=== PATIENT | male | born 1940 | race Caucasian/White ===

== ENCOUNTER 2016-05-18 10:53 | Day surgery (SDC) | payer MEDICARE ==
[2016-05-13 16:27] VITALS: BMI 22.0
[~2016-05-18 10:53] MED LIST: ALBUTEROL NEB (CONC) 2.5 MG/0.5 ML INHALATION ONE; ATROPINE SULFATE 0.4 MG/ML 1 ML VIAL IM ONE; LACTATED RINGERS 1,000 ML IV ONE; LACTATED RINGERS 1,000 ML IV SCH; LIDOCAINE 1% 20 ML VIAL (10MG/ML) FOR IV START INTRADERMA PRN; LIDOCAINE 2% (PF) 20 MG/ML 10ML INHALATION ONE
[2016-05-18] MEDS ORDERED: LIDOCAINE 1% INJ 10MG/ML (20 ML MDV) ONE (12:13)
[2016-05-18] MEDS ORDERED: PROPOFOL 10 MG/ML 20 ML VIAL IV ONE (12:13)
[2016-05-18 13:07] VITALS: BP 164/88; PULSE 55; RESP 20
[2016-05-18 20:04] LABS: RBC, Body Fluid 5025 /uL
--- NOTE | 2016-05-18 21:07 | PCN ---
DATE OF PROCEDURE: PROCEDURE PERFORMED: Bronchoscopy, airway examination, therapeutic lavage, BAL right middle lobe. PREOPERATIVE DIAGNOSES: Retained secretions, and chronic obstructive pulmonary disease. POSTOPERATIVE DIAGNOSES: Retained secretions, chronic obstructive pulmonary disease and tracheomalacia. CEILING CLEANER provided IV conscious sedation. There was informed consent. There was universal timeout. The patient's procedure took place in Room #2. After the patient was adequately sedated and being fully monitored, the bronchoscope was inserted through the right nostril. It passed through the right nasopharynx into the oropharynx. The hypopharynx was identified and topicalized. The hypopharyngeal structures, including anterior commissure, true cords, false cords, arytenoids, piriform sinuses, right and left valleculae all appeared relatively normal. Next, the glottic opening was topicalized. The trachea was shown to have tracheomalacia. It was quite significant. Tracheal ross was sharp. The right and left mainstem were topicalized. The right upper lobe and its 3 segments, the right middle lobe and its 2 segments, the right lower lobe and its 5 segments, left upper lobe proper and its 2 segments, the lingula and its 2 segments, and left lower lobe and its 4 segments all had similar findings of diffuse bronchitis, with mucosa erythema, hyperemia mucosal friability. It bled easily. There were thick yellow secretions noted throughout. They were suctioned. The bronchoscope was then wedged into the right middle lobe. BAL took place. The patient tolerated the procedure well. There was no dominant masses. There was no bleeding. After the fluid was removed and the rest of the airways were cleansed with saline, the bronchoscope was withdrawn. The patient will be recovered.
== END 2016-05-18 13:18 | disposition home or self-care (01) ==
LOC: ORWHC2ENDO 10:53
PROVIDERS: ATTEND Internal Medicine Critical Care Medicine
DX: J39.8 Other specified diseases of upper respiratory tract (principal); J44.9 Chronic obstructive pulmonary disease, unspecified; I10 Essential (primary) hypertension; Z88.1 Allergy status to other antibiotic agents; Z88.8 Allergy status to other drugs, medicaments and biological substances; Z79.2 Long term (current) use of antibiotics; Z79.51 Long term (current) use of inhaled steroids; Z79.52 Long term (current) use of systemic steroids; Z79.899 Other long term (current) drug therapy; Z87.891 Personal history of nicotine dependence
CPT/HCPCS: 94640; 88108; 88305; 89050; 87252; 87070; 87205; 87116; 87102; 87206; 31624; J0461; J2001 ×2; J2704; 87496; 87498; 87502; 87529; 87798

== ENCOUNTER 2016-09-07 11:51 | Day surgery (SDC) | payer MEDICARE ==
[2016-09-02 15:38] VITALS: BMI 25.6
[~2016-09-07 11:51] MED LIST changes: -LIDOCAINE 1% 20 ML VIAL (10MG/ML) FOR IV START INTRADERMA PRN; +Pre Op ABX Message 1 EACH MISC MISCELLANE ONE
[2016-09-07] MEDS ORDERED: LIDOCAINE 1% 20 ML VIAL (10MG/ML) FOR IV START INTRADERMA ONE (12:24)
[2016-09-07 12:27] LABS: Glucose,Whole Blood 88 mg/dL (75-99)
[2016-09-07] MEDS ORDERED: PROPOFOL 10 MG/ML 20 ML VIAL IV ONE (12:46)
[2016-09-07 13:06] VITALS: RESP 16
[2016-09-07 13:58] VITALS: BP 145/89; PULSE 59
--- NOTE | 2016-09-07 22:38 | PCN ---
DATE OF PROCEDURE: PROCEDURE PERFORMED: Bronchoscopy, airway examination, therapeutic lavage, BAL right middle lobe. PREOPERATIVE DIAGNOSES: 1. Retained secretions. 2. Chronic obstructive pulmonary disease. 3. Tracheobronchomalacia. POSTOPERATIVE DIAGNOSES: 1. Retained secretions. 2. Chronic obstructive pulmonary disease. 3. Tracheobronchomalacia. The procedure was done under general anesthesia and conscious sedation. NITROGEN OPERATOR provided that sedation. The patient's procedure was done in Room #1. There was informed consent. There was universal timeout. After the patient was adequately sedated and being fully monitored, the bronchoscope was inserted through the right nostril. It passed through the right nasopharynx into the oropharynx. The hypopharynx was identified. There seemed to be some blood along the true vocal cord on the right side. The anterior commissure, true cords, false cords, arytenoids, piriform sinuses, right and left vallecula and epiglottis all appeared otherwise normal. After topicalization, the bronchoscope was pushed through the glottic opening into the trachea. Trachea appeared normal. There was some ballooning of the membranous posterior trachea anteriorly consistent with the patient's diagnosis of tracheomalacia. There were thick secretions noted throughout the trachea. Tracheal ross was sharp. Right and left mainstem were topicalized. The right upper lobe and its 3 segments, the right middle lobe and its 2 segments, the right lower lobe and its 5 segments, the left upper lobe proper and its 2 segments, the lingula and its 2 segments and the left lower lobe and its 4 segments all had similar findings of diffuse mucosal friability. There was vascular engorgement. The mucosa bled easily. There was diffuse erythema and hyperemia. There were thick yellow-green secretions noted throughout. There was no dominant mass or tumor. After secretions were suctioned, the bronchoscope was wedged into the right middle lobe. BAL took place. The patient tolerated the procedure well. There was no immediate complications. The patient will be recovered and eventually discharged.
== END 2016-09-07 14:09 | disposition home or self-care (01) ==
LOC: ORWHC2ENDO 11:51
PROVIDERS: ATTEND Internal Medicine Critical Care Medicine
DX: J44.9 Chronic obstructive pulmonary disease, unspecified (principal); J39.8 Other specified diseases of upper respiratory tract; J98.09 Other diseases of bronchus, not elsewhere classified; F41.9 Anxiety disorder, unspecified; I10 Essential (primary) hypertension; Z87.891 Personal history of nicotine dependence; Z79.891 Long term (current) use of opiate analgesic; Z79.51 Long term (current) use of inhaled steroids; Z79.52 Long term (current) use of systemic steroids; Z79.899 Other long term (current) drug therapy; Z88.1 Allergy status to other antibiotic agents; Z88.8 Allergy status to other drugs, medicaments and biological substances
CPT/HCPCS: 94640; 87798 ×4; 87496; 87498; 87529 ×2; 88108; 88305; 87252; 87502 ×2; 87070; 87205; 87116; 87102; 87077; 87186; 87206; 31624; J0461; J2001; J2704

== ENCOUNTER → 2016-10-20 | Outpatient (CLI) | payer MEDICARE ==
[2016-10-20 09:14] LABS: Blood Urea Nitrogen 23 mg/dL (9-20); Non-African American GFR(MDRD) >60 (>60 ml/min/1.73 sqM)
--- NOTE | 2016-10-20 10:57 | CT ---
EXAMINATION TYPE: CT abdomen wo/w con DATE OF EXAM: 10/20/2016 COMPARISON: NONE HISTORY: Abdominal pain, R 10.84 CT DLP: 1536 mGycm Automated exposure control for dose reduction was used. TECHNIQUE: Helical acquisition of images was performed from the lung bases through the top of iliac crest to include entire abdomen. CONTRAST: Performed with Oral Contrast and without and with IV Contrast, patient injected with 100 mL of Omnipa que 300. FINDINGS: LUNG BASES: The lung bases there are areas of probable scarring and atelectasis. Coronary artery calc ifications are present. No pleural or pericardial effusion. LIVER/GB: Liver shows low attenuation, there may be hepatic steatosis. No evident mass. Small low den se focus within the right lobe inferiorly is subcentimeter in size and statistically likely to repres ent a cyst, too similar foci present in the left lobe. Gallbladder is unremarkable. PANCREAS: No significant abnormality is seen. SPLEEN: No significant abnormality is seen. ADRENALS: No significant abnormality is seen. KIDNEYS: Low dense focus within the mid pole of the left kidney posteriorly measures 12 mm and is lik edmund to represent a small cortical cyst. 2 foci at the lower pole of the right kidney shows similar ap pearance measuring 13 mm and 12 mm which are also likely represent cysts. No evident renal calculi or hydronephrosis. No ureteral calculus is evident. BOWEL: No significant abnormality is seen. LYMPH NODES: No significant abnormality is appreciated. OSSEOUS STRUCTURES: There is a scoliosis. Degenerative disc changes in the visualized spine. Multile philippe disc herniations present within the spinal canal, gas density compatible with possible sequestere d fragments at L3, L4.. There is facet arthropathy change. FREE AIR: No free air ASCITES: None visible. RETROPERITONEAL ADENOPATHY: No Retroperitoneal Adenopathy visible. OTHER: Aorta shows normal caliber, there is atheromatous change. 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 IMPRESSION: DEGENERATIVE DISC DISEASE, SCOLIOSIS WITH DISC HERNIATIONS. Findings in the liver as described. Proba ble scarring at the lung bases, consider follow-up. Additional findings above.
== END | disposition home or self-care (01) ==
LOC: RADCTMAIN 08:37
PROVIDERS: ATTEND Internal Medicine Geriatric Medicine
DX: R10.84 Generalized abdominal pain (principal)
CPT/HCPCS: 82565; 84520; 74170; 36415; Q9967

== ENCOUNTER → 2017-02-22 | Outpatient (CLI) | payer MEDICARE ==
--- NOTE | 2017-02-22 09:57 | CT ---
EXAMINATION TYPE: CT chest wo con DATE OF EXAM: 02/22/2017 COMPARISON: Prior chest x-ray 03/16/2011 HISTORY: COPD, trouble breathing CT DLP: 565 mGycm. Automated Exposure Control for Dose Reduction was Utilized. TECHNIQUE: CT scan of the thorax is performed without IV contrast. FINDINGS: LUNGS: Some patchy basilar density is present medially at the right lung base which may represent ilan e scarring, there is also some increased attenuation along the fissure on the left extending into the lingula. Subpleural focus of increased attenuation on axial image 36 in the right middle lobe measur es approximately 1 cm and may represent a small focus of inflammatory change. Some minimal additional subpleural nodularity, bandlike areas of scarring noted. There is bronchial wall thickening present. MEDIASTINUM: Lack of IV contrast is noted to limit evaluation for mediastinal and especially hilar ad enopathy. There are no definitive greater than 1 cm hilar or mediastinal lymph nodes. No cardiomega ly or pericardial effusion is seen. There is a small hiatal hernia present. The pulmonary artery is e nlarged. Small prevascular node is present. There are coronary artery calcifications present. OTHER: No additional significant abnormality is seen. IMPRESSION: Correlate for pulmonary artery hypertension. Coronary artery disease. Suspect scarring wi thin the lungs, consider follow-up to assess for stability. Noncontrast exam.
== END | disposition home or self-care (01) ==
LOC: RADCTMAIN 08:33
PROVIDERS: ATTEND Internal Medicine Critical Care Medicine
DX: I25.10 Atherosclerotic heart disease of native coronary artery without angina pectoris (principal)
CPT/HCPCS: 71250

== ENCOUNTER 2017-02-24 09:18 | Day surgery (SDC) | payer MEDICARE ==
[~2017-02-24 09:18] MED LIST changes: -ALBUTEROL NEB (CONC) 2.5 MG/0.5 ML INHALATION ONE; -ATROPINE SULFATE 0.4 MG/ML 1 ML VIAL IM ONE; -LACTATED RINGERS 1,000 ML IV ONE; -LACTATED RINGERS 1,000 ML IV SCH; -LIDOCAINE 2% (PF) 20 MG/ML 10ML INHALATION ONE
[2017-02-24 09:48] VITALS: TEMP 97.9
[2017-02-24] MEDS ORDERED: ALBUTEROL NEBULIZED 2.5 MG/3 ML INHALATION STA (09:59)
[2017-02-24 10:10] LABS: Glucose,Whole Blood 86 mg/dL (75-99)
[2017-02-24] MEDS ORDERED: LIDOCAINE 4% (PF) 5 ML AMP IH STA (10:10)
[2017-02-24] MEDS ORDERED: ATROPINE SULFATE 0.4 MG/ML 20 ML VIAL IM STA (10:17)
[2017-02-24] MEDS ORDERED: LIDOCAINE 1% 20 ML VIAL (10MG/ML) FOR IV START INTRADERMA ONE (10:21)
[2017-02-24] MEDS ORDERED: LACTATED RINGERS 1,000 ML IV ONE (10:22)
[2017-02-24] MEDS ORDERED: PROPOFOL 10 MG/ML 20 ML VIAL IV ONE (10:32)
[2017-02-24 11:38] VITALS: RESP 18
[2017-02-24 11:53] VITALS: BP 124/78; PULSE 58
--- NOTE | 2017-02-24 13:46 | PCN ---
PROCEDURE NOTE PROCEDURE: Bronchoscopy, airway examination, therapeutic lavage, BAL right middle lobe. PREOP DIAGNOSES: 1. Bronchiectasis. 2. Chronic obstructive pulmonary disease. 3. Tracheobronchomalacia. 4. Retained secretions. POSTOP DIAGNOSES: 1. Bronchiectasis. 2. Chronic obstructive pulmonary disease. 3. Tracheobronchomalacia. 4. Retained secretions. Dr. Griggs and Dr. Thornton did the procedure. There was informed consent. There was universal timeout. Leonardo Ware CRNA, provided general anesthesia. After the patient was adequately sedated and being fully monitored, the bronchoscope was inserted through the right nostril. It passed through the right nasopharynx into the oropharynx. The hypopharynx was identified and topicalized. The hypopharyngeal structures including anterior commissure, true cords, false cords, arytenoids, piriform sinuses, right and left vallecula and epiglottis appeared normal. After topicalization, the bronchoscope was passed through the glottic opening into the trachea. Trachea appeared normal. Trachea ross was sharp. There was some secretions noted in the distal trachea. The right and left mainstem were topicalized. The right upper lobe and its 3 segments right middle lobe and its 2 segments right lower lobe and its 5 segments left upper lobe proper and its 2 segments the lingula and its 2 segments and the left lower lobe and its 4 segments all have similar findings of diffuse bronchitis. There was diffuse mucosal erythema and hyperemia. The mucosa was friable. Secretions were purulent appearing. They were thick. There were suctioned. There was no dominant mass or tumor. The bronchoscope was then wedged into the right middle lobe. BAL took place. Patient tolerated the procedure well and the bronchoscope was withdrawn. There was no immediate complications. The fluid will be sent for analysis. MMODL / IJN: [id number] /
[2017-02-24 17:48] LABS: RBC, Body Fluid 166500 /uL
== END 2017-02-24 12:13 | disposition home or self-care (01) ==
LOC: ORWHC2ENDO 09:18
PROVIDERS: ATTEND Internal Medicine Critical Care Medicine
DX: J47.1 Bronchiectasis with (acute) exacerbation (principal); J98.09 Other diseases of bronchus, not elsewhere classified; F41.9 Anxiety disorder, unspecified; I10 Essential (primary) hypertension; Z88.1 Allergy status to other antibiotic agents; Z88.8 Allergy status to other drugs, medicaments and biological substances; Z79.51 Long term (current) use of inhaled steroids; Z79.52 Long term (current) use of systemic steroids; Z79.899 Other long term (current) drug therapy; Z87.891 Personal history of nicotine dependence
CPT/HCPCS: 94640; 88108; 88305; 89050; 87252; 87070; 87205; 87116; 87102; 87206; 31624; J2001; J0461; J2704; 87496; 87498; 87502; 87529; 87798

== ENCOUNTER 2017-08-16 09:10 | Emergency (ER) | payer MEDICARE ==
[2017-08-16] MEDS ORDERED: SODIUM CHLORIDE 0.9% 500 ML IV STA (09:36)
[2017-08-16] MEDS ORDERED: methylPREDNISolone SOD SUCCI 125 MG/2 ML VIAL IV STA (09:36)
[2017-08-16] MEDS ORDERED: ALBUTEROL NEBULIZED 2.5 MG/3 ML INHALATION STA (09:36)
[2017-08-16] MEDS ORDERED: KETOROLAC 60 MG/2 ML VIAL IVP STA (09:40)
--- NOTE | 2017-08-16 09:42 | ED ---
General Adult HPI - General Chief complaint: Shortness of Breath Stated complaint: SOB Time Seen by Provider: 08/16/17 09:15 Source: patient, RN notes reviewed Mode of arrival: ambulatory Limitations: no limitations - History of Present Illness Initial comments: This is a 76-year-old male presents emergency Department with COPD history. Patient comes in today stating over the last few days he's been coughing quite a bit but unable to get any sputum production out. Patient states his shortness of breath is really not much worse than normal. Patient denies any chest pain difficulty breathing. Patient denies any fever chills per patient denies any abdominal pain. Patient denies any nausea vomiting diarrhea. Patient denies any leg swelling or calf pain. Patient denies any lightheadedness or dizziness. - Related Data Home Medications Medication Instructions Recorded Confirmed ALPRAZolam [Xanax] 0.25 mg PO QID PRN 08/22/13 08/16/17 Ipratropium/Albuterol Sulfate 1 puff INHALATION RT-Q6H PRN 08/22/13 08/16/17 [Combivent Respimat Inhaler] amLODIPine [Norvasc] 5 mg PO BID 08/22/13 08/16/17 Benzonatate [Tessalon Perles] 100 mg PO TID PRN 09/02/16 08/16/17 Formoterol Fumarate [Perforomist] 20 mcg INHALATION RT-BID 09/02/16 08/16/17 Tamsulosin [Flomax] 0.4 mg PO DAILY 09/02/16 08/16/17 predniSONE 10 mg PO DAILY 09/02/16 08/16/17 Naproxen Sodium [Aleve] 220 mg PO BID 02/24/17 08/16/17 Albuterol Nebulized [Ventolin 2.5 mg INHALATION RT-Q6H PRN 08/16/17 08/16/17 Nebulized] Budesonide [Pulmicort] 1 mg INHALATION RT-DAILY 08/16/17 08/16/17 Furosemide [Lasix] 40 mg PO DAILY 08/16/17 08/16/17 Potassium Chloride [Klor-Con 20] 20 meq PO DAILY 08/16/17 08/16/17 Triamcinolone 0.1% Cream [Kenalog] 1 applicatio TOPICAL BID 08/16/17 08/16/17 guaiFENesin [Mucinex] 600 mg PO BID PRN 08/16/17 08/16/17 Previous Rx's Medication Instructions Recorded Azithromycin [Zithromax Tri-Dillon] 500 mg PO DAILY #3 tab 08/16/17 predniSONE 40 mg PO DAILY #8 tab 08/16/17 Allergies Allergy/AdvReac Type Severity Reaction Status Date / Time levofloxacin [From Levaquin] Allergy Swelling Verified 08/16/17 10:07 to fingers Review of Systems ROS Statement: Those systems with pertinent positive or pertinent negative responses have been documented in the HPI. ROS Other: All systems not noted in ROS Statement are negative. Past Medical History Past Medical History: COPD, Hypertension, Pneumonia, Skin Disorder Additional Past Medical History / Comment(s): HX PSORIASIS,HEART MURMUR,DAILY STEROID. "stage 3 lung disease" History of Any Multi-Drug Resistant Organisms: None Reported Additional Past Surgical History / Comment(s): BRONCHOSCOPY X5. HX EGD, COLONOSCOPY, BENIGN LYMPH NODE REMOVED FROM NECK. Past Anesthesia/Blood Transfusion Reactions: No Reported Reaction Past Psychological History: No Psychological Hx Reported Smoking Status: Former smoker Past Alcohol Use History: None Reported Past Drug Use History: None Reported - Past Family History Mother Family Medical History: CVA/TIA, Myocardial Infarction ([place]) Father Family Medical History: Deep Vein Thrombosis (DVT) General Exam - General Exam Comments Initial Comments: GENERAL: Patient is well-developed and well-nourished. Patient is nontoxic and well- hydrated and is in mild distress. ENT: Neck is soft and supple. No significant lymphadenopathy is noted. Oropharynx is clear. Moist mucous membranes. EYES: The sclera were anicteric and conjunctiva were pink and moist. Extraocular movements were intact and pupils were equal round and reactive to light. Eyelids were unremarkable. PULMONARY: Unlabored respirations. Good breath sounds bilaterally. No audible rales rhonchi or wheezing was noted. CARDIOVASCULAR: There is a regular rate and rhythm without any murmurs gallops or rubs. ABDOMEN: Soft and nontender with normal bowel sounds. No palpable organomegaly was noted. There is no palpable pulsatile mass. SKIN: Skin is clear with no lesions or rashes and otherwise unremarkable. NEUROLOGIC: Patient is alert and oriented x3. Cranial nerves II through XII are grossly intact. Motor and sensory are also intact. Normal speech, volume and content. Symmetrical smile. MUSCULOSKELETAL: Normal extremities with adequate strength and full range of motion. LYMPHATICS: No significant lymphadenopathy is noted PSYCHIATRIC: Normal psychiatric evaluation. Normal interpersonal interactions appears functionally intact in deals appropriately with others. No signs of depression. No signs of anxiety. Limitations: no limitations Course Vital Signs 08/16/17 08/16/17 08/16/17 09:16 09:20 10:06 Temperature 98.4 F Pulse Rate 64 88 Respiratory 26 H 26 H Rate Blood Pressure 132/84 O2 Sat by Pulse 92 L Oximetry 08/16/17 08/16/17 10:12 10:22 Temperature Pulse Rate 82 88 Respiratory 20 Rate Blood Pressure 149/87 O2 Sat by Pulse 98 Oximetry Medical Decision Making - Medical Decision Making EKG shows a sinus rhythm with occasional PVC at 83 bpm MI interval is 146 QRS is 92 QT interval 368 QTC is 432. Patient's EKG shows no ST segment elevation or depression or T wave abnormalities are noted. Chest x-ray shows no acute abnormality. I went back in to reevaluate the patient and he felt better after the breathing treatment. I checked the chest x-ray showed no acute abnormalities I started the patient on Rocephin because I thought the patient acute bronchitis. Patient states her come back if the symptoms worsen. Patient will also be placed on some steroids. Patient is requesting to be discharged. - Lab Data Result diagrams: 08/16/17 09:50 08/16/17 09:50 Lab Results 08/16/17 08/16/17 08/16/17 Range/Units 09:50 09:50 09:50 WBC 8.1 (3.8-10.6) k/uL RBC 5.01 (4.30-5.90) m/uL Hgb 15.1 (13.0-17.5) gm/dL Hct 44.0 (39.0-53.0) % MCV 87.8 (80.0-100.0) fL MCH 30.2 (25.0-35.0) pg MCHC 34.4 (31.0-37.0) g/dL RDW 14.8 (11.5-15.5) % Plt Count 181 (150-450) k/uL Neutrophils % 82 % Lymphocytes % 12 % Monocytes % 5 % Eosinophils % 0 % Basophils % 0 % Neutrophils # 6.6 (1.3-7.7) k/uL Lymphocytes # 0.9 L (1.0-4.8) k/uL Monocytes # 0.4 (0-1.0) k/uL Eosinophils # 0.0 (0-0.7) k/uL Basophils # 0.0 (0-0.2) k/uL PT (9.0-12.0) sec INR (<1.2) APTT (22.0-30.0) sec Sodium 145 (137-145) mmol/L Potassium 3.9 (3.5-5.1) mmol/L Chloride 106 (98-107) mmol/L Carbon Dioxide 25 (22-30) mmol/L Anion Gap 14 mmol/L BUN 26 H (9-20) mg/dL Creatinine 0.95 (0.66-1.25) mg/dL Est GFR (CKD-EPI)AfAm 89 (>60 ml/min/1.73 sqM) Est GFR (CKD-EPI)NonAf 77 (>60 ml/min/1.73 sqM) Glucose 116 H (74-99) mg/dL Calcium 9.2 (8.4-10.2) mg/dL Magnesium 1.9 (1.6-2.3) mg/dL Total Bilirubin 0.6 (0.2-1.3) mg/dL AST 29 (17-59) U/L ALT 31 (21-72) U/L Alkaline Phosphatase 88 (38-126) U/L Total Creatine Kinase 77 (55-170) U/L CK-MB (CK-2) 1.7 (0.0-2.4) ng/mL CK-MB (CK-2) Rel Index 2.2 Troponin I 0.033 (0.000-0.034) ng/mL NT-Pro-B Natriuret Pep pg/mL Total Protein 6.7 (6.3-8.2) g/dL Albumin 3.9 (3.5-5.0) g/dL 08/16/17 08/16/17 Range/Units 09:50 09:50 WBC (3.8-10.6) k/uL RBC (4.30-5.90) m/uL Hgb (13.0-17.5) gm/dL Hct (39.0-53.0) % MCV (80.0-100.0) fL MCH (25.0-35.0) pg MCHC (31.0-37.0) g/dL RDW (11.5-15.5) % Plt Count (150-450) k/uL Neutrophils % % Lymphocytes % % Monocytes % % Eosinophils % % Basophils % % Neutrophils # (1.3-7.7) k/uL Lymphocytes # (1.0-4.8) k/uL Monocytes # (0-1.0) k/uL Eosinophils # (0-0.7) k/uL Basophils # (0-0.2) k/uL PT 9.7 (9.0-12.0) sec INR 1.0 (<1.2) APTT 24.1 (22.0-30.0) sec Sodium (137-145) mmol/L Potassium (3.5-5.1) mmol/L Chloride (98-107) mmol/L Carbon Dioxide (22-30) mmol/L Anion Gap mmol/L BUN (9-20) mg/dL Creatinine (0.66-1.25) mg/dL Est GFR (CKD-EPI)AfAm (>60 ml/min/1.73 sqM) Est GFR (CKD-EPI)NonAf (>60 ml/min/1.73 sqM) Glucose (74-99) mg/dL Calcium (8.4-10.2) mg/dL Magnesium (1.6-2.3) mg/dL Total Bilirubin (0.2-1.3) mg/dL AST (17-59) U/L ALT (21-72) U/L Alkaline Phosphatase (38-126) U/L Total Creatine Kinase (55-170) U/L CK-MB (CK-2) (0.0-2.4) ng/mL CK-MB (CK-2) Rel Index Troponin I (0.000-0.034) ng/mL NT-Pro-B Natriuret Pep 194 pg/mL Total Protein (6.3-8.2) g/dL Albumin (3.5-5.0) g/dL Disposition Clinical Impression: Acute bronchitis with COPD Disposition: HOME SELF-CARE Instructions: Acute Bronchitis (ED) Prescriptions: Azithromycin [Zithromax Tri-Dillon] 500 mg PO DAILY #3 tab predniSONE 40 mg PO DAILY #8 tab Is patient prescribed a controlled substance at d/c from ED?: No Referrals: Erik Pal MD [Primary Care Provider] - 1-2 days Time of Disposition: 10:58
[2017-08-16 10:12] LABS: Basophils % (A) 0 %; Eosinophils % (A) 0 %; HGB 15.1 gm/dL (13.0-17.5); Lymphocytes # (A) 0.9 k/uL (1.0-4.8); Lymphocytes % (A) 12 %; MCH 30.2 pg (25.0-35.0); MCHC 34.4 g/dL (31.0-37.0); MCV 87.8 fL (80.0-100.0); Mean Platelet Volume 7.3; Monocytes # (A) 0.4 k/uL (0-1.0); Monocytes % (A) 5 %; Neutrophils # (A) 6.6 k/uL (1.3-7.7); Neutrophils % (A) 82 %; Platelet Count 181 k/uL (150-450); RBC 5.01 m/uL (4.30-5.90); RDW 14.8 % (11.5-15.5); WBC 8.1 k/uL (3.8-10.6)
--- NOTE | 2017-08-16 10:17 | XR ---
EXAMINATION TYPE: XR chest 2V DATE OF EXAM: 08/16/2017 COMPARISON: 03/16/2011 HISTORY: Shortness of breath TECHNIQUE: Frontal and lateral views of the chest are obtained. FINDINGS: Scattered senescent parenchymal changes noted. Hyperinflation compatible with COPD. No evidence for infiltrate. No evidence for atelectasis. Heart size is stable. Mediastinal structures are stable and grossly unremarkable. No evidence for hilar prominence. Degenerative changes dorsal spine. IMPRESSION: 1. No evidence for acute pulmonary disease.
[2017-08-16 10:23] LABS: Albumin 3.9 g/dL (3.5-5.0); Calcium 9.2 mg/dL (8.4-10.2); Magnesium 1.9 mg/dL (1.6-2.3); Potassium 3.9 mmol/L (3.5-5.1); Total Bilirubin 0.6 mg/dL (0.2-1.3); Total Protein 6.7 g/dL (6.3-8.2)
[2017-08-16 10:37] LABS: Partial Thromboplastin Time 24.1 sec (22.0-30.0); Prothrombin Time 9.7 sec (9.0-12.0)
[2017-08-16 10:48] LABS: Creatine Kinase MB 1.7 ng/mL (0.0-2.4); Troponin I 0.033 ng/mL (0.000-0.034)
[2017-08-16] MEDS ORDERED: cefTRIAXone IN SWFI 1,000 MG/10 ML SYRINGE IVP STA (10:53)
[2017-08-16 11:16] VITALS: BP 120/79; PULSE 94; RESP 22; TEMP 96.9
== END 2017-08-16 11:21 | disposition home or self-care (01) ==
LOC: EC 09:10
DX: J20.9 Acute bronchitis, unspecified (principal); J44.0 Chronic obstructive pulmonary disease with (acute) lower respiratory infection; I10 Essential (primary) hypertension; Z87.891 Personal history of nicotine dependence; Z79.1 Long term (current) use of non-steroidal anti-inflammatories (NSAID); Z79.51 Long term (current) use of inhaled steroids; Z79.52 Long term (current) use of systemic steroids; Z79.899 Other long term (current) drug therapy; Z88.1 Allergy status to other antibiotic agents
CPT/HCPCS: 99285; 96374; 96375 ×2; 96361; 36415; 94640; 93005; 83880; 80053; 82550; 82553; 83735; 84484; 85025; 85610; 85730; 87040; 71046; J2930; J0696; J1885

== ENCOUNTER → 2017-08-25 | Day surgery (SDC) | payer MEDICARE ==
[2017-08-24 11:23] VITALS: BMI 26.2
[~2017-08-25] MED LIST changes: +ALBUTEROL NEBULIZED 2.5 MG/3 ML INHALATION ONE; +ATROPINE SULFATE 0.4 MG/ML 20 ML VIAL IM ONE; +IV FLUID CONTINUATION 1,000 ML IV ONE; +LACTATED RINGERS 1,000 ML IV SCH; +LIDOCAINE 1% 20 ML VIAL (10MG/ML) FOR IV START INTRADERMA PRN; +LIDOCAINE 1% INJ 10MG/ML (20 ML MDV) ONE; +LIDOCAINE 2% (PF) 20 MG/ML 2 ML AMP INHALATION ONE; +LIDOCAINE 2% INJ 20 MG/ML INTRATRACH ONE; +PROPOFOL 10 MG/ML 20 ML VIAL IV ONE; -Pre Op ABX Message 1 EACH MISC MISCELLANE ONE; +fentaNYL (PF) 50 MCG/ML 2 ML AMP ONE
[2017-08-25 06:59] VITALS: TEMP 97.8
[2017-08-25 07:02] LABS: Glucose,Whole Blood 85 mg/dL (75-99)
[2017-08-25 07:46] VITALS: RESP 18
[2017-08-25 08:02] VITALS: BP 140/89; PULSE 55
--- NOTE | 2017-08-25 08:03 | PCN ---
PROCEDURE NOTE PROCEDURE: Bronchoscopy, airway examination, therapeutic lavage, BAL right middle lobe. PREOPERATIVE DIAGNOSIS: Severe chronic obstructive pulmonary disease, tracheobronchomalacia and bronchiectasis. POSTOPERATIVE DIAGNOSIS: Severe chronic obstructive pulmonary disease, tracheobronchomalacia and bronchiectasis. PROCEDURE: There was informed consent. There was universal timeout. The patient's procedure took place in room #3. HIGH DENSITY PRESS LABORER provided general anesthesia/unconscious sedation. After the patient was adequately sedated and being fully monitored, the bronchoscope was inserted without difficulty through the right nostril. It passed through the right nasopharynx into the oropharynx. The hypopharynx was identified and topicalized. The hypopharyngeal structures appeared normal including anterior commissure, true cords, false cords, arytenoids, piriform sinuses, right and left vallecula and epiglottis. After topicalization, the bronchoscope was pushed through the glottic opening into the trachea. There was severe tracheomalacia. There were secretions noted throughout the trachea. They were suctioned. The trachea was topicalized with lidocaine. Right and left mainstem were topicalized. Tracheal ross was sharp. Right upper lobe and its 3 segments, right middle lobe and its 2 segments, right lower lobe and its 5 segments, left upper lobe proper and its 2 segments, lingula and its 2 segments and the left lower lobe and its 4 segments all had similar findings of diffuse bronchitis. There was mucosal friability. There was vascular engorgement. There was significant hyperemia and erythema of the airways. There was airways bled easily. There were thick purulent looking secretions noted throughout. The bronchoscope was wedged into the right middle lobe. The BAL took place. Subsequent to that, the saline was used to cleanse the airways. Once all airways were cleansed of any purulence, the bronchoscope was withdrawn. The patient will be recovered. There was no immediate complication. MMODL / IJN: [id number] /
[2017-08-25 13:48] LABS: Appearance,BF Bloody; Nucleated Cells, Body Fluid 11700 /uL; RBC, Body Fluid 37800 /uL
[2017-08-25 13:50] LABS: Mononuclear WBC,Body Fluid 3 %; Polynuclear WBC,Body Fluid 97 %; Total Cells Counted,Body Fluid 100
== END ==
LOC: ORWHC2ENDO 06:16
PROVIDERS: ATTEND Internal Medicine Critical Care Medicine
DX: J39.8 Other specified diseases of upper respiratory tract (principal); J98.09 Other diseases of bronchus, not elsewhere classified; J47.9 Bronchiectasis, uncomplicated; F41.9 Anxiety disorder, unspecified; I10 Essential (primary) hypertension; Z79.52 Long term (current) use of systemic steroids; Z79.899 Other long term (current) drug therapy; Z79.1 Long term (current) use of non-steroidal anti-inflammatories (NSAID); Z88.1 Allergy status to other antibiotic agents; Z88.8 Allergy status to other drugs, medicaments and biological substances; Z87.891 Personal history of nicotine dependence
CPT/HCPCS: 87798 ×3; 87496; 87498; 87529 ×2; 88108; 88305; 89050; 87252; 87502; 87634; 87070; 87205; 87116; 87102; 87077; 87186; 87206; 31645; 31624; J2001 ×2; J0461; J3010; J2704

== ENCOUNTER 2018-04-06 08:54 | Day surgery (SDC) | payer MEDICARE ==
[~2018-04-06 08:54] MED LIST changes: +ALBUTEROL NEB (CONC) 2.5 MG/0.5 ML INHALATION ONE; -ALBUTEROL NEBULIZED 2.5 MG/3 ML INHALATION ONE; +ATROPINE SULFATE 0.4 MG/ML 1 ML VIAL IM ONE; -ATROPINE SULFATE 0.4 MG/ML 20 ML VIAL IM ONE; -IV FLUID CONTINUATION 1,000 ML IV ONE; +LACTATED RINGERS 1,000 ML IV ONE; -LACTATED RINGERS 1,000 ML IV SCH; -LIDOCAINE 1% 20 ML VIAL (10MG/ML) FOR IV START INTRADERMA PRN; -LIDOCAINE 1% INJ 10MG/ML (20 ML MDV) ONE; -LIDOCAINE 2% (PF) 20 MG/ML 2 ML AMP INHALATION ONE; -LIDOCAINE 2% INJ 20 MG/ML INTRATRACH ONE; +LIDOCAINE VISCOUS 2% 15 ML CUP MUCOUS MEM ONE; -PROPOFOL 10 MG/ML 20 ML VIAL IV ONE; -fentaNYL (PF) 50 MCG/ML 2 ML AMP ONE
[2018-04-06] MEDS ORDERED: LIDOCAINE 1% 20 ML VIAL (10MG/ML) FOR IV START INTRADERMA ONE (10:11)
[2018-04-06 10:13] VITALS: TEMP 97.7
[2018-04-06] MEDS ORDERED: GLYCOPYRROLATE 0.2 MG/ML 2 ML VIAL ONE (11:25)
[2018-04-06] MEDS ORDERED: PROPOFOL 10 MG/ML 20 ML VIAL IV ONE (11:25)
[2018-04-06] MEDS ORDERED: LIDOCAINE 1% INJ 10MG/ML (20 ML MDV) ONE (11:25)
[2018-04-06] MEDS ORDERED: KETAMINE 10 MG/ML 20 ML VIAL ONE (11:25)
[2018-04-06 11:46] VITALS: RESP 18
--- NOTE | 2018-04-06 11:59 | PCN ---
PROCEDURE NOTE PROCEDURE: Bronchoscopy, airway examination, therapeutic lavage, BAL right middle lobe. PREOPERATIVE DIAGNOSIS: Retained secretions, tracheobronchomalacia, COPD. POSTOPERATIVE DIAGNOSIS: Retained secretions, tracheobronchomalacia, COPD. OPERATORS: Dr. Griggs and Dr. Thornton. GALLERY HOST provided general anesthesia, unconscious sedation. PROCEDURE DESCRIPTION: Done in room #1 of the endoscopy suite. There was informed consent. There was universal timeout. After the patient was adequately sedated, being fully monitored, the bronchoscope was inserted through the right nostril. It passed through the right nasopharynx into the oropharynx. The hypopharynx was identified and topicalized. The hypopharyngeal structures including anterior commissure, true cords, false cords, arytenoids, piriform sinuses, right and left vallecula and epiglottis were all normal. After topicalization, bronchoscope was pushed through the glottic opening into the trachea. There was severe tracheomalacia noted. There were thick secretions noted throughout the mid to lower trachea. Tracheal ross was sharp. The right and left mainstem were topicalized. There were thick secretions noted throughout both lungs. There was a significant degree of erythema and hyperemia of the airways. There was vascular engorgement. There was mucosal friability. No dominant mass or tumor. There was also bronchomalacia. The bronchoscope was used to suction secretions from the lower respiratory tract. Most of the secretions were noted in the left lower lobe and right lower lobe. The bronchoscope was then wedged into the right middle lobe. The BAL took place. Patient tolerated procedure well. There was no immediate complications. The bronchoscope was withdrawn after the procedure. The patient will be recovered. MMODL / IJN: [id number] /
[2018-04-06 12:01] VITALS: BP 127/82; PULSE 61
[2018-04-06 16:42] LABS: Color,BF Red
[2018-04-06 16:43] LABS: Appearance,BF Cloudy
[2018-04-06 18:11] LABS: Nucleated Cells, Body Fluid 300 /uL; RBC, Body Fluid 2900 /uL
[2018-04-06 18:14] LABS: Mononuclear WBC,Body Fluid 10 %; Polynuclear WBC,Body Fluid 89 %; Total Cells Counted,Body Fluid 100
[2018-04-06] MEDS ORDERED: LIDOCAINE HCL/PF 20 MG/ML ML INHALATION ONE (23:15)
== END 2018-04-06 12:31 | disposition home or self-care (01) ==
LOC: ORWHC2ENDO 08:54
PROVIDERS: ATTEND Internal Medicine Critical Care Medicine
DX: J39.8 Other specified diseases of upper respiratory tract (principal); J98.09 Other diseases of bronchus, not elsewhere classified; J47.9 Bronchiectasis, uncomplicated; F41.9 Anxiety disorder, unspecified; I10 Essential (primary) hypertension; Z79.51 Long term (current) use of inhaled steroids; Z79.52 Long term (current) use of systemic steroids; Z79.899 Other long term (current) drug therapy; Z79.1 Long term (current) use of non-steroidal anti-inflammatories (NSAID); Z88.1 Allergy status to other antibiotic agents; Z88.8 Allergy status to other drugs, medicaments and biological substances; Z87.891 Personal history of nicotine dependence
CPT/HCPCS: 94640; 87798 ×3; 87496; 87498; 87529; 88108; 88305; 89050; 87252; 87502; 87634; 87070; 87205; 87116; 87102; 87077; 87186; 87206; 31645; 31624; J0461; J2001 ×2; J2704

== ENCOUNTER 2018-09-07 10:49 | Day surgery (SDC) | payer MEDICARE ==
[2018-09-06 11:11] VITALS: BMI 27.4
[~2018-09-07 10:49] MED LIST changes: -LACTATED RINGERS 1,000 ML IV ONE; +LACTATED RINGERS 1,000 ML IV SCH; +LIDOCAINE 1% 20 ML VIAL (10MG/ML) FOR IV START INTRADERMA PRN; +LIDOCAINE 2% (PF) 20 MG/ML 5 ML VIAL INHALATION ONE; -LIDOCAINE VISCOUS 2% 15 ML CUP MUCOUS MEM ONE; +LIDOCAINE VISCOUS 300 MG/15 ML CUP MUCOUS MEM ONE; +SODIUM CHLORIDE 0.9% 1,000 ML IV SCH
[2018-09-07 11:39] LABS: Glucose,Whole Blood 87 mg/dL (75-99)
[2018-09-07 11:41] VITALS: TEMP 97.9
[2018-09-07] MEDS ORDERED: LIDOCAINE 1% INJ 10MG/ML (20 ML MDV) ONE (12:04)
[2018-09-07] MEDS ORDERED: PROPOFOL 10 MG/ML 20 ML VIAL IV ONE (12:04)
[2018-09-07] MEDS ORDERED: LIDOCAINE 2% INJ 20 MG/ML INTRATRACH ONE (12:14)
[2018-09-07 12:27] VITALS: RESP 18
[2018-09-07 12:46] VITALS: BP 142/93; PULSE 53
--- NOTE | 2018-09-07 13:54 | PCN ---
PROCEDURE NOTE PROCEDURE: Bronchoscopy, airway examination with therapeutic lavage, BAL right middle lobe. PREOPERATIVE DIAGNOSIS: Tracheobronchomalacia, severe COPD, retained secretions. POSTOPERATIVE DIAGNOSIS: Tracheobronchomalacia, severe COPD, retained secretions. HAND COMPOSITOR: Dr. Griggs. There was informed consent. There was universal timeout. The patient's procedure was done in room #1. Anesthesia provided unconscious sedation and general anesthesia. After the patient was adequately sedated and being fully monitored, the bronchoscope was inserted through the right nostril. It passed through the right nasopharynx into the oropharynx. The hypopharynx was then identified. The hypopharyngeal structures including anterior commissure, true cords, false cords, arytenoids, piriform sinuses, right and left vallecula and epiglottis all appeared relatively normal. There was some pooled secretions noted in the hypopharynx. After topicalization, the bronchoscope was pushed through the glottic opening into the trachea. There was significant tracheomalacia. This is a chronic finding as was seen before. There were some secretions noted in the distal trachea. They are purulent appearing. The tracheal ross was sharp. Next, there was a thorough inspection of both the right and left lung. The right upper lobe and its 3 segments, the right middle lobe and its 2 segments, the right lower lobe and its 5 segments, the left upper lobe proper and its 2 segments, the lingula and its 2 segments and the left lower lobe and its 4 segments all had similar findings of diffuse moderate to severe erythema and hyperemia of the airways. There was mucosal friability. There was vascular engorgement. Mucosa bled easily. There was no dominant mass or tumor. There were purulent secretions noted throughout. They were suctioned. After they were suctioned, the bronchoscope was wedged into the right middle lobe. The BAL took place. The patient tolerated the procedure well. Thirty mL was recovered. The specimens will be sent to the laboratory for analysis. The patient will be recovered. There was no immediate complication. I discussed the findings with the family. MMODL / IJN: [id number] /
[2018-09-07 16:32] LABS: Appearance,BF Hazy; Color,BF Colorless; Nucleated Cells, Body Fluid 57 /uL; RBC, Body Fluid 0 /uL
[2018-09-07 16:34] LABS: Mononuclear WBC,Body Fluid 7 %; Polynuclear WBC,Body Fluid 93 %; Total Cells Counted,Body Fluid 100
== END 2018-09-07 12:56 | disposition home or self-care (01) ==
LOC: ORWHC2ENDO 10:49
PROVIDERS: ATTEND Internal Medicine Critical Care Medicine
DX: J40 Bronchitis, not specified as acute or chronic (principal); J39.8 Other specified diseases of upper respiratory tract; J98.09 Other diseases of bronchus, not elsewhere classified; J44.9 Chronic obstructive pulmonary disease, unspecified; Z87.891 Personal history of nicotine dependence; I10 Essential (primary) hypertension; Z79.51 Long term (current) use of inhaled steroids; Z79.52 Long term (current) use of systemic steroids; Z79.899 Other long term (current) drug therapy; Z99.81 Dependence on supplemental oxygen; Z88.1 Allergy status to other antibiotic agents
CPT/HCPCS: 94640; 88108; 88305; 89050; 87252; 87070; 87205; 87116; 87102; 87206; 31624; J2001 ×3; J0461; J2704; 87496; 87498; 87502; 87529; 87634; 87798

== ENCOUNTER 2018-11-10 17:17 | Emergency (ER) | payer MEDICARE ==
[2018-11-10] MEDS ORDERED: methylPREDNISolone SOD SUCCI 125 MG/2 ML VIAL IV STA (17:56)
[2018-11-10] MEDS ORDERED: IPRATROPIUM-ALBUTEROL 3 ML NEB INHALATION STA (17:56)
[2018-11-10] MEDS ORDERED: SODIUM CHLORIDE 0.9% 1,000 ML IV STA ×2 (17:56)
[2018-11-10] MEDS ORDERED: ALBUTEROL NEBULIZED 2.5 MG/3 ML INHALATION STA (17:56)
[2018-11-10] MEDS ORDERED: ACYCLOVIR 800 MG TAB PO STA (17:58)
[2018-11-10] MEDS ORDERED: MORPHINE SULFATE 4 MG/ML SYRINGE IVP STA (17:58)
[2018-11-10 18:58] LABS: Calcium 9.6 mg/dL (8.4-10.2); INR 0.9 (<1.2); Partial Thromboplastin Time 25.5 sec (22.0-30.0); Potassium 4.8 mmol/L (3.5-5.1); Prothrombin Time 10.2 sec (9.0-12.0); Total Bilirubin 0.7 mg/dL (0.2-1.3); Total Protein 7.3 g/dL (6.3-8.2)
[2018-11-10 19:03] LABS: Basophils # (A) 0.1 k/uL (0-0.2); Basophils % (A) 1 %; Eosinophils # (A) 0.1 k/uL (0-0.7); Eosinophils % (A) 2 %; HCT 47.1 % (39.0-53.0); HGB 15.3 gm/dL (13.0-17.5); Lymphocytes # (A) 1.4 k/uL (1.0-4.8); Lymphocytes % (A) 21 %; MCH 29.9 pg (25.0-35.0); MCHC 32.4 g/dL (31.0-37.0); MCV 92.2 fL (80.0-100.0); Mean Platelet Volume 6.8; Monocytes # (A) 0.4 k/uL (0-1.0); Monocytes % (A) 6 %; Neutrophils # (A) 4.6 k/uL (1.3-7.7); Neutrophils % (A) 69 %; Platelet Count 297 k/uL (150-450); RBC 5.11 m/uL (4.30-5.90); WBC 6.7 k/uL (3.8-10.6)
--- NOTE | 2018-11-10 19:23 | ED ---
General Adult HPI - General Chief complaint: Shortness of Breath Stated complaint: SOB, Dizziness Time Seen by Provider: 11/10/18 17:23 Source: patient, EMS, RN notes reviewed, old records reviewed Mode of arrival: EMS Limitations: no limitations - History of Present Illness Initial comments: Patient is a 78-year-old male presents emergency department today with complaints of rash over his back and groin for the past 3 days. Is also had some episodes of dizziness complaints of worsening shortness of breath. He has extensive history of COPD. He is recently off of antibiotics. Patient family reports that he has been stubborn and not wanting to go to the doctor. Patient also complains of the rash in his groin has a foul odor to it. Patient states that the rash initially started with some pain. He also complains of constipation. - Related Data Home Medications Medication Instructions Recorded Confirmed ALPRAZolam [Xanax] 0.25 mg PO QID PRN 08/22/13 09/06/18 amLODIPine [Norvasc] 5 mg PO BID 08/22/13 09/06/18 Benzonatate [Tessalon Perles] 200 mg PO TID 09/02/16 09/06/18 Formoterol Fumarate [Perforomist] 20 mcg INHALATION QAM 09/02/16 09/06/18 Naproxen Sodium [Aleve] 220 mg PO DAILY 02/24/17 09/06/18 Budesonide [Pulmicort] 1 mg INHALATION HS 08/16/17 09/06/18 Furosemide [Lasix] 40 mg PO DAILY 08/16/17 09/06/18 guaiFENesin [Mucinex] 1,200 mg PO BID 08/16/17 09/06/18 Ipratropium-Albuterol Nebulize 3 ml INHALATION BID 08/24/17 09/06/18 [Duoneb 0.5 mg-3 mg/3 ml Soln] Melatonin 10 mg PO HS 08/24/17 09/06/18 Ciprofloxacin HCl [Cipro] 750 mg PO BID 08/31/18 09/06/18 Ipratropium/Albuterol Sulfate 1 puff INHALATION QID 08/31/18 09/06/18 [Combivent Respimat Inhaler] Potassium Chloride [Klor-Con 20] 20 meq PO DAILY 08/31/18 09/06/18 Spironolactone [Aldactone] 25 mg PO DAILY 09/06/18 09/06/18 Tamsulosin [Flomax] 0.4 mg PO DAILY 09/06/18 09/06/18 predniSONE 5 mg PO DAILY 09/06/18 09/06/18 Previous Rx's Medication Instructions Recorded Bisacodyl [Dulcolax] 10 mg PO DAILY #15 tablet. 11/10/18 Lidocaine 5% Patch [Lidoderm 5% 1 patch TOPICAL DAILY #15 patch 11/10/18 Patch] Nystatin 100,000 Unit/gm Powd 1 applic TOPICAL BID #60 gm 11/10/18 [Mycostatin Powder] predniSONE 50 mg PO DAILY #5 tablet 11/10/18 valACYclovir HCL [Valtrex] 1,000 mg PO Q8HR #21 tab 11/10/18 Allergies Allergy/AdvReac Type Severity Reaction Status Date / Time levofloxacin [From Levaquin] AdvReac Swelling Verified 09/06/18 10:46 to fingers-states "OK to take Cipro" Review of Systems ROS Statement: Those systems with pertinent positive or pertinent negative responses have been documented in the HPI. ROS Other: All systems not noted in ROS Statement are negative. Past Medical History Past Medical History: COPD, Hypertension, Pneumonia, Prostate Disorder, Skin D isorder Additional Past Medical History / Comment(s): HX PSORIASIS, HEART MURMUR, DAILY STEROID. "stage 3 lung disease", SEVERE Tracheomalacia & Bronchiectasis. BEGINNING AB RX TODAY, HAD DEPO MEDROL IM X1. SL BPH. ON O2, UNSURE OF DOSE. History of Any Multi-Drug Resistant Organisms: ESBL Date of last positivie culture/infection: 04/06/18 MDRO Source:: esbl bronch Additional Past Surgical History / Comment(s): BRONCHOSCOPY X6. HX EGD, COLONOSCOPY; BENIGN LYMPH NODE REMOVED FROM NECK AGE 19. Past Anesthesia/Blood Transfusion Reactions: No Reported Reaction Past Psychological History: No Psychological Hx Reported Smoking Status: Former smoker Past Alcohol Use History: None Reported Past Drug Use History: None Reported - Past Family History Mother Family Medical History: CVA/TIA, Myocardial Infarction (NH) Father Family Medical History: Deep Vein Thrombosis (DVT) General Exam - General Exam Comments Initial Comments: This is a 78-year-old male. Alert and oriented. No distress. Limitations: no limitations General appearance: alert, in no apparent distress Head exam: Present: atraumatic, normocephalic, normal inspection Eye exam: Present: normal appearance, PERRL, EOMI. Absent: scleral icterus, conjunctival injection, periorbital swelling ENT exam: Present: normal exam, TM's normal bilaterally Neck exam: Present: normal inspection. Absent: tenderness, meningismus, lymphadenopathy Respiratory exam: Present: wheezes. Absent: normal lung sounds bilaterally, respiratory distress, rales, rhonchi, stridor Cardiovascular Exam: Present: regular rate GI/Abdominal exam: Present: soft, normal bowel sounds. Absent: distended, tenderness, guarding, rebound, rigid Back exam: Present: normal inspection Neurological exam: Present: alert, oriented X3, CN II-XII intact Psychiatric exam: Present: normal affect, normal mood Skin exam: Present: warm, dry, intact, normal color, rash (shingles rash in R groin and upper thigh. Only one dermatoma. Evidence of brennan intertrigo between groin and abdomen. ) Course Vital Signs 11/10/18 11/10/18 11/10/18 17:22 17:56 19:25 Temperature 97.5 F L Pulse Rate 73 76 Respiratory 20 20 Rate Blood Pressure 139/104 O2 Sat by Pulse 96 Oximetry 11/10/18 11/10/18 19:40 21:10 Temperature 97.8 F Pulse Rate 77 70 Respiratory 18 Rate Blood Pressure 134/72 O2 Sat by Pulse 97 Oximetry EKG Findings - EKG Comments: EKG Findings:: EKG shows normal sinus rhythm normal EKG. Ventricular rate 60 beats.. Pupils 150 ms. QS duration is 92 ms. QT QTc is 42/427 ms. Medical Decision Making - Medical Decision Making This is a 78-year-old male presents today for evaluation for multiple complaints. Wheezing, she was like rash in the right groin. Patient's given intravenously treatments. Given IV fluids. Patient was started on acyclovir for evidence of rash. Blood work was reviewed and unremarkable. After treatment breathing treatment his difficulty breathing and wheezing or diminished. Patient caregiver, his daughter is quite worried that she he will not listen to her when she makes ingestions to go to the doctor. I discussed with Patient needs to follow-up with his primary care physician. We'll discharge the Patient with lidocaine patches, nystatin for between and she try cold.. As well as acyclovir. Discussed also with Patient on short course of steroids to help with a COPD exacerbation. All questions answered. - Lab Data Result diagrams: 11/10/18 18:35 11/10/18 18:35 Lab Results 11/10/18 11/10/18 11/10/18 Range/Units 18:35 18:35 18:35 WBC 6.7 (3.8-10.6) k/uL RBC 5.11 (4.30-5.90) m/uL Hgb 15.3 (13.0-17.5) gm/dL Hct 47.1 (39.0-53.0) % MCV 92.2 (80.0-100.0) fL MCH 29.9 (25.0-35.0) pg MCHC 32.4 (31.0-37.0) g/dL RDW 16.0 H (11.5-15.5) % Plt Count 297 (150-450) k/uL Neutrophils % 69 % Lymphocytes % 21 % Monocytes % 6 % Eosinophils % 2 % Basophils % 1 % Neutrophils # 4.6 (1.3-7.7) k/uL Lymphocytes # 1.4 (1.0-4.8) k/uL Monocytes # 0.4 (0-1.0) k/uL Eosinophils # 0.1 (0-0.7) k/uL Basophils # 0.1 (0-0.2) k/uL PT 10.2 (9.0-12.0) sec INR 0.9 (<1.2) APTT 25.5 (22.0-30.0) sec Sodium 139 (137-145) mmol/L Potassium 4.8 (3.5-5.1) mmol/L Chloride 104 (98-107) mmol/L Carbon Dioxide 25 (22-30) mmol/L Anion Gap 10 mmol/L BUN 13 (9-20) mg/dL Creatinine 0.98 (0.66-1.25) mg/dL Est GFR (CKD-EPI)AfAm 85 (>60 ml/min/1.73 sqM) Est GFR (CKD-EPI)NonAf 74 (>60 ml/min/1.73 sqM) Glucose 91 (74-99) mg/dL Plasma Lactic Acid Marcus (0.7-2.0) mmol/L Calcium 9.6 (8.4-10.2) mg/dL Total Bilirubin 0.7 (0.2-1.3) mg/dL AST 24 (17-59) U/L ALT 28 (21-72) U/L Alkaline Phosphatase 75 (38-126) U/L Troponin I (0.000-0.034) ng/mL NT-Pro-B Natriuret Pep pg/mL Total Protein 7.3 (6.3-8.2) g/dL Albumin 4.0 (3.5-5.0) g/dL 11/10/18 11/10/18 11/10/18 Range/Units 18:35 18:35 18:35 WBC (3.8-10.6) k/uL RBC (4.30-5.90) m/uL Hgb (13.0-17.5) gm/dL Hct (39.0-53.0) % MCV (80.0-100.0) fL MCH (25.0-35.0) pg MCHC (31.0-37.0) g/dL RDW (11.5-15.5) % Plt Count (150-450) k/uL Neutrophils % % Lymphocytes % % Monocytes % % Eosinophils % % Basophils % % Neutrophils # (1.3-7.7) k/uL Lymphocytes # (1.0-4.8) k/uL Monocytes # (0-1.0) k/uL Eosinophils # (0-0.7) k/uL Basophils # (0-0.2) k/uL PT (9.0-12.0) sec INR (<1.2) APTT (22.0-30.0) sec Sodium (137-145) mmol/L Potassium (3.5-5.1) mmol/L Chloride (98-107) mmol/L Carbon Dioxide (22-30) mmol/L Anion Gap mmol/L BUN (9-20) mg/dL Creatinine (0.66-1.25) mg/dL Est GFR (CKD-EPI)AfAm (>60 ml/min/1.73 sqM) Est GFR (CKD-EPI)NonAf (>60 ml/min/1.73 sqM) Glucose (74-99) mg/dL Plasma Lactic Acid Marcus 0.8 (0.7-2.0) mmol/L Calcium (8.4-10.2) mg/dL Total Bilirubin (0.2-1.3) mg/dL AST (17-59) U/L ALT (21-72) U/L Alkaline Phosphatase (38-126) U/L Troponin I <0.012 (0.000-0.034) ng/mL NT-Pro-B Natriuret Pep 403 pg/mL Total Protein (6.3-8.2) g/dL Albumin (3.5-5.0) g/dL - Radiology Data Radiology results: report reviewed Chest x-ray shows areas of some segmental atelectasis. Chronic changes without any acute cardiopulmonary process. KUB is normal. Disposition Clinical Impression: Shingles, Candidal intertrigo, Chronic cough, Constipation Disposition: HOME SELF-CARE Condition: Good Instructions (If sedation given, give patient instructions): Shingles (ED) Additional Instructions: Patient is advised to have close follow-up with your primary care doctor on Tuesday. Take the stool softeners as prescribed. Recommended keeping the area or groin clean and dry. Apply the antifungal cream over the area. Take the ant i-viral medications as prescribed. Patient should also increase her steroid dose as prescribed. Return to the emergency department if any alarming signs or symptoms occur. Prescriptions: Bisacodyl [Dulcolax] 10 mg PO DAILY #15 tablet. Lidocaine 5% Patch [Lidoderm 5% Patch] 1 patch TOPICAL DAILY #15 patch Nystatin 100,000 Unit/gm Powd [Mycostatin Powder] 1 applic TOPICAL BID #60 gm predniSONE 50 mg PO DAILY #5 tablet valACYclovir HCL [Valtrex] 1,000 mg PO Q8HR #21 tab Is patient prescribed a controlled substance at d/c from ED?: No Referrals: Erik Pal MD [Primary Care Provider] - 1-2 days Time of Disposition: 20:31
--- NOTE | 2018-11-10 19:38 | XR ---
EXAMINATION TYPE: XR chest 2V DATE OF EXAM: 11/10/2018 COMPARISON: 08/16/2017 HISTORY: Difficulty breathing TECHNIQUE: Frontal and lateral views of the chest are obtained. FINDINGS: Cardia mediastinal silhouette remains enlarged. Prominence of the main pulmonary artery finch ggests underlying pulmonary arterial hypertension. Scattered areas of platelike subsegmental atelecta sis are seen with suboptimal lung volumes. Mild degenerative changes of the spine. Lateral view is finch boptimal. IMPRESSION: Areas of subsegmental atelectasis. Chronic changes with no other acute cardiopulmonary p rocess.
--- NOTE | 2018-11-10 19:41 | XR ---
EXAMINATION TYPE: XR KUB DATE OF EXAM: 11/10/2018 7:23 PM CLINICAL HISTORY: Abdominal pain TECHNIQUE: Single supine KUB image of the abdomen is obtained. COMPARISON: None. FINDINGS: S-shaped scoliosis of the lumbar spine is seen with extensive degenerative changes and diff use osseous demineralization. Air is seen within nondilated large and small bowel. Mild degree coloni c fecal stasis. Atherosclerosis of the abdominal aorta and its branches. The patient's keys obscure t he right greater trochanter. Right cam deformity is partially visualized. Moderate degenerative de jesus es of the femoral acetabular joints. There is limited evaluation for pneumoperitoneum. IMPRESSION: Nonobstructive bowel gas pattern.
[2018-11-10] MEDS ORDERED: MAGNESIUM CITRATE 296 ML BOTTLE PO ONE (20:06)
[2018-11-10] MEDS ORDERED: LIDOCAINE 5% PATCH TOPICAL STA (20:36)
[2018-11-10 21:23] VITALS: BP 134/72; PULSE 70; RESP 18; TEMP 97.8
== END 2018-11-10 21:10 | disposition home or self-care (01) ==
LOC: EC 17:17
DX: B02.9 Zoster without complications (principal); B37.2 Candidiasis of skin and nail; R05 Cough; K59.00 Constipation, unspecified; R06.02 Shortness of breath; J44.9 Chronic obstructive pulmonary disease, unspecified; I10 Essential (primary) hypertension; Z87.01 Personal history of pneumonia (recurrent); Z87.891 Personal history of nicotine dependence; Z79.1 Long term (current) use of non-steroidal anti-inflammatories (NSAID); Z79.51 Long term (current) use of inhaled steroids; Z79.52 Long term (current) use of systemic steroids; Z79.899 Other long term (current) drug therapy; Z88.1 Allergy status to other antibiotic agents
CPT/HCPCS: 99285; 96374; 96375; 96361 ×2; 36415; 94640; 93005; 83880; 80053; 83605; 84484; 85025; 85610; 85730; 87040; 71046; 74018; J2270; J2930

== ENCOUNTER 2019-01-09 10:47 | Day surgery (SDC) | payer MEDICARE ==
[2019-01-05 15:05] VITALS: BMI 24.7
[~2019-01-09 10:47] MED LIST changes: -ATROPINE SULFATE 0.4 MG/ML 1 ML VIAL IM ONE; +DEXAMETHASONE SOD PHOSPHATE 10 MG/ML 1 ML VIAL IV ONE; +HYDROmorphone 0.5 MG/0.5 ML SYRINGE IVP PRN; +MIDAZOLAM 2 MG/2 ML VIAL IV PRN; +ONDANSETRON 4 MG/2 ML VIAL IVP ONE; +SCOPOLAMINE 1.5MG/72HR PATCH TRANSDERM ONE
[2019-01-09 11:21] VITALS: RESP 16; TEMP 98.1
[2019-01-09 11:27] LABS: Glucose,Whole Blood 82 mg/dL (75-99)
[2019-01-09] MEDS ORDERED: ATROPINE SULFATE 0.4 MG/ML 1 ML VIAL IM ONE (11:30)
[2019-01-09] MEDS ORDERED: PROPOFOL 10 MG/ML 20 ML VIAL IV ONE (12:00)
[2019-01-09] MEDS ORDERED: LIDOCAINE 2% INJ 20 MG/ML INTRATRACH ONE (12:14)
[2019-01-09 12:50] VITALS: BP 140/80; PULSE 69
--- NOTE | 2019-01-09 12:52 | PCN ---
PROCEDURE NOTE PROCEDURE: Bronchoscopy, airway examination, BAL right middle lobe, therapeutic lavage. PREOPERATIVE DIAGNOSES: Severe tracheobronchomalacia, chronic obstructive pulmonary disease, retained secretions. POSTOPERATIVE DIAGNOSES: Severe tracheobronchomalacia, chronic obstructive pulmonary disease, retained secretions. DESCRIPTION OF PROCEDURE: The procedure was done in room #1 [facility]. There was informed consent and universal timeout. Leonardo Ware CRNA provided general anesthesia. After the patient was adequately sedated and being fully monitored, the bronchoscope was inserted through the right nostril. It passed through the right nasopharynx into the oropharynx. The hypopharynx was identified. The structures here included the anterior commissure, true cords, false cords, arytenoids, piriform sinuses, right and left vallecula, epiglottis and vallecula. Everything there appeared normal. After topicalization, the bronchoscope was pushed through the glottic opening into the trachea. There was severe tracheomalacia. The trachea was very collapsible. There were thick secretions noted throughout the trachea. They were suctioned. Next, the tracheal ross was noted to be sharp. The right and left mainstem were topicalized. There were thick secretions noted in the right and left mainstem bronchi. The right upper lobe and its 3 segments, right middle lobe and its 2 segments, right lower lobe and its 5 segments, the left upper lobe proper and its 2 segments the lingula and its 2 segments and left lower lobe and its 4 segments all had similar findings of diffuse airway erythema and hyperemia with mucosal friability and thick yellow secretions noted throughout. The mucosa bled easily. There was no dominant mass or tumor. The secretions were suctioned with the aid of saline after topicalization. Next, the bronchoscope was wedged into the right middle lobe. The BAL took place; 30 mL was recovered. The bronchoscope was then withdrawn. The patient tolerated the procedure well. The patient will be recovered. I will speak to the patient's family members. MMODL / IJN: [id number] / MTDD
[2019-01-09 16:24] LABS: Appearance,BF Blood Tinged; Color,BF Pink; Nucleated Cells, Body Fluid 650 /uL; RBC, Body Fluid 23800 /uL
[2019-01-09 16:39] LABS: Mononuclear WBC,Body Fluid 15 %; Polynuclear WBC,Body Fluid 84 %; Total Cells Counted,Body Fluid 100
== END 2019-01-09 12:58 | disposition home or self-care (01) ==
LOC: ORWHC2ENDO 10:47
PROVIDERS: ATTEND Internal Medicine Critical Care Medicine
DX: J47.9 Bronchiectasis, uncomplicated (principal); J39.8 Other specified diseases of upper respiratory tract; J98.09 Other diseases of bronchus, not elsewhere classified; Z99.81 Dependence on supplemental oxygen; F41.9 Anxiety disorder, unspecified; I10 Essential (primary) hypertension; Z82.49 Family history of ischemic heart disease and other diseases of the circulatory system; Z82.3 Family history of stroke; Z87.891 Personal history of nicotine dependence; Z79.899 Other long term (current) drug therapy; Z79.52 Long term (current) use of systemic steroids; Z88.1 Allergy status to other antibiotic agents; Z88.8 Allergy status to other drugs, medicaments and biological substances
CPT/HCPCS: 94640; 87798 ×3; 87496; 87498; 87529; 88108; 88305; 89050; 87252; 87502; 87634; 87070; 87205; 87116; 87102; 87206; 31624; J2001 ×2; J0461; J2704

== ENCOUNTER → 2019-05-01 | Day surgery (SDC) | payer MEDICARE ==
[2019-04-27 11:33] VITALS: BMI 27.4
[~2019-05-01] MED LIST changes: +ATROPINE SULFATE 0.4 MG/ML 1 ML VIAL IM ONE; -DEXAMETHASONE SOD PHOSPHATE 10 MG/ML 1 ML VIAL IV ONE; -HYDROmorphone 0.5 MG/0.5 ML SYRINGE IVP PRN; +KETAMINE 10 MG/ML 20 ML VIAL ONE; +LIDOCAINE 1% INJ 10MG/ML (20 ML MDV) ONE; +LIDOCAINE 2% INJ 20 MG/ML INTRATRACH ONE; -MIDAZOLAM 2 MG/2 ML VIAL IV PRN; +MIDAZOLAM 2 MG/2 ML VIAL ONE; -ONDANSETRON 4 MG/2 ML VIAL IVP ONE; +PROPOFOL 10 MG/ML 20 ML VIAL IV ONE; -SCOPOLAMINE 1.5MG/72HR PATCH TRANSDERM ONE; +fentaNYL (PF) 50 MCG/ML 2 ML AMP ONE
[2019-05-01 12:08] VITALS: TEMP 97.4
[2019-05-01 12:11] LABS: Glucose,Whole Blood 79 mg/dL (75-99)
[2019-05-01 13:06] VITALS: RESP 20
[2019-05-01 13:43] VITALS: BP 133/77; PULSE 51
--- NOTE | 2019-05-01 15:26 | PCN ---
PROCEDURE NOTE PROCEDURE: Bronchoscopy, airway examination, therapeutic lavage, BAL. PREOPERATIVE DIAGNOSIS: Tracheobronchomalacia, retained sections, bronchiectasis. PREOPERATIVE DIAGNOSIS: Tracheobronchomalacia, retained secretions, bronchiectasis. OPERATORS: Dr. Griggs, Dr. Thornton and Ade Ortega. The patient's procedure took place in room #1. There was informed consent and universal timeout. Nurse drilling field specialist provided conscious sedation and general anesthesia. After the patient was adequately sedated, the bronchoscope was inserted through the right nostril. It passed through the right nasopharynx into the oropharynx. The hypopharynx was identified and topicalized. The hypopharyngeal structures including anterior commissure, true cords, false cords, arytenoids, piriform sinuses, right and left valleculae and epiglottis all appeared relatively normal. The glottic opening was topicalized. The bronchoscope was pushed through the glottic opening into the windpipe. The trachea was found to have significant malacia. There was retained secretions noted throughout the trachea. Tracheal ross was sharp. Secretions were suctioned with some difficulty. The right and left mainstem were topicalized. The right upper lobe and its 3 segments, right middle lobe and its 2 segments, right lower lobe and its 5 segments, the left upper lobe proper and its 2 segments, the lingula and its 2 segments and the left lower lobe and its 4 segments all had similar findings of diffuse airway erythema and hyperemia. There was mucosal friability. There were thick purulent secretions noted throughout. The patient's mucosa bled easily. There was no dominant mass or tumor. The secretions were suctioned with some difficulty. The bronchoscope was wedged into the right middle lobe. The BAL took place, 30 mL was recovered and will be sent for analysis. The patient tolerated the procedure well. Additional secretions were suctioned. The bronchoscope was withdrawn. The patient will be recovered. There was no immediate complications. The patient tolerated the procedure well. MMODL / IJN: [id number] /
[2019-05-01 16:35] LABS: Appearance,BF Clear; Color,BF Pink; Nucleated Cells, Body Fluid 4 /uL; RBC, Body Fluid 2070 /uL
== END | disposition home or self-care (01) ==
LOC: ORWHC2ENDO 11:29
PROVIDERS: ATTEND Internal Medicine Critical Care Medicine
DX: J98.09 Other diseases of bronchus, not elsewhere classified (principal); J39.8 Other specified diseases of upper respiratory tract; J47.9 Bronchiectasis, uncomplicated; Z88.1 Allergy status to other antibiotic agents; I10 Essential (primary) hypertension; Z87.891 Personal history of nicotine dependence; F41.9 Anxiety disorder, unspecified; K21.9 Gastro-esophageal reflux disease without esophagitis; Z79.51 Long term (current) use of inhaled steroids; Z79.899 Other long term (current) drug therapy; Z79.52 Long term (current) use of systemic steroids; Z88.8 Allergy status to other drugs, medicaments and biological substances; Z82.49 Family history of ischemic heart disease and other diseases of the circulatory system
CPT/HCPCS: 94640; 87798 ×3; 87496; 87498; 87529 ×2; 88108; 88305; 89050; 87252; 87502; 87634; 87070; 87205; 87116; 87102; 87206; 31624; J2001 ×3; J2250; J0461; J3010; J2704

== ENCOUNTER 2019-09-26 11:46 | Day surgery (SDC) | payer MEDICARE ==
[2019-09-24 11:12] VITALS: BMI 29.5
[~2019-09-26 11:46] MED LIST changes: -KETAMINE 10 MG/ML 20 ML VIAL ONE; -LIDOCAINE 1% 20 ML VIAL (10MG/ML) FOR IV START INTRADERMA PRN; -LIDOCAINE 1% INJ 10MG/ML (20 ML MDV) ONE; -LIDOCAINE 2% INJ 20 MG/ML INTRATRACH ONE; -MIDAZOLAM 2 MG/2 ML VIAL ONE; -PROPOFOL 10 MG/ML 20 ML VIAL IV ONE; -fentaNYL (PF) 50 MCG/ML 2 ML AMP ONE
[2019-09-26] MEDS ORDERED: LIDOCAINE 1% (10MG/ML) FOR IV START INTRADERMA ONE (12:50)
[2019-09-26 13:04] VITALS: TEMP 96.9
[2019-09-26] MEDS ORDERED: PROPOFOL 10 MG/ML 20 ML VIAL IV ONE (13:43)
[2019-09-26] MEDS ORDERED: LIDOCAINE 1% INJ 10MG/ML (20 ML MDV) ONE (13:43)
[2019-09-26] MEDS ORDERED: fentaNYL (PF) 50 MCG/ML 2 ML AMP ONE (13:43)
[2019-09-26] MEDS ORDERED: KETAMINE 10 MG/ML 20 ML VIAL ONE (13:43)
[2019-09-26] MEDS ORDERED: LIDOCAINE 2% INJ 20 MG/ML INTRATRACH ONE (13:51)
[2019-09-26 14:16] VITALS: RESP 16
[2019-09-26 14:44] VITALS: BP 147/83; PULSE 53
--- NOTE | 2019-09-26 17:32 | PCN ---
PROCEDURE NOTE PULMONARY/CRITICAL CARE PROCEDURE NOTE: PROCEDURE: Bronchoscopy, airway examination, therapeutic lavage, BAL right middle lobe. PREOPERATIVE DIAGNOSIS: Severe tracheobronchomalacia with retained secretions. POSTOPERATIVE DIAGNOSIS: Severe tracheobronchomalacia with retained secretions. SENIOR WINDOWS SYSTEMS ADMINISTRATOR provided general anesthesia. The patient's procedure was done in room #1, there was informed consent and universal timeout. OPERATORS: Dr. Griggs and Boris Ortega. After the patient was adequately sedated and being fully monitored, the bronchoscope was inserted through the right nostril. It passed through the right nasopharynx into the oropharynx. The hypopharynx was identified. The hypopharyngeal structures all appeared normal including anterior commissure, true cords, false cords, arytenoids, piriform sinuses, right and left vallecula and epiglottis. After topicalization, the bronchoscope was pushed through the glottic opening into the trachea. There was severe tracheomalacia. The trachea was very collapsible. There were some secretions noted throughout the trachea. The tracheal ross was relatively sharp. The right and left mainstem were topicalized. The right upper lobe and its three segments, right middle lobe and its two segments, right lower lobe and its five segments, left upper lobe proper and its two segments, lingula and its two segments and left lower lobe and its four segments, all had similar findings of diffuse airway, erythema and hyperemia. There was mucosal friability and vascular engorgement. There was mucosal friability. The patient did bleed easily if the mucosa was irritated. The secretions on the left side were suctioned. On the right side, secretions were suctioned. Next, the bronchoscope was wedged into the right middle lobe. The BAL took place. Thirty mL was recovered. The fluid will be sent for analysis. There was no immediate complication. The patient will be recovered. The bronchoscope was withdrawn. MMODL / IJN: [id number] /
[2019-09-26 17:42] LABS: Appearance,BF Clear; Color,BF Colorless; Nucleated Cells, Body Fluid 20 /uL; RBC, Body Fluid 300 /uL
[2019-09-26 21:11] LABS: Mononuclear WBC,Body Fluid 1 %; Polynuclear WBC,Body Fluid 99 %
== END 2019-09-26 14:58 | disposition home or self-care (01) ==
LOC: ORWHC2ENDO 11:46
PROVIDERS: ATTEND Internal Medicine Critical Care Medicine
DX: J39.8 Other specified diseases of upper respiratory tract (principal); J98.09 Other diseases of bronchus, not elsewhere classified; J44.9 Chronic obstructive pulmonary disease, unspecified; F41.9 Anxiety disorder, unspecified; I10 Essential (primary) hypertension; Z87.891 Personal history of nicotine dependence; Z82.49 Family history of ischemic heart disease and other diseases of the circulatory system; Z82.3 Family history of stroke; Z83.438 Family history of other disorder of lipoprotein metabolism and other lipidemia; Z79.51 Long term (current) use of inhaled steroids; Z79.899 Other long term (current) drug therapy; Z79.52 Long term (current) use of systemic steroids; Z88.1 Allergy status to other antibiotic agents; Z88.8 Allergy status to other drugs, medicaments and biological substances
CPT/HCPCS: 87798 ×3; 87496; 87498; 87529; 88108; 88305; 89050; 87252; 87502; 87634; 87070; 87205; 87116; 87102; 87206; 31624; J2001 ×2; J0461; J3010; J2704

== ENCOUNTER 2019-12-15 17:58 | Emergency (ER) | payer MEDICARE ==
[2019-12-15] MEDS ORDERED: GLUCAGON 1 MG/ML VIAL IVP STA ×2 (18:01→18:41)
[2019-12-15 18:19] VITALS: TEMP 98.5
--- NOTE | 2019-12-15 18:20 | ED ---
General Adult HPI <Svitlana Mejia - Last Filed: 12/16/19 13:39> - General Source: patient, RN notes reviewed Mode of arrival: EMS Limitations: no limitations <Dandy Hemphill - Last Filed: 12/18/19 12:20> - General Chief complaint: ENT Stated complaint: chest pain Time Seen by Provider: 12/15/19 17:58 - History of Present Illness Initial comments: This is a 79-year-old male who states he was eating steak is prior to arrival when he feels like a piece get stuck in his throat he started coughing he also has difficulty breathing but he states this is chronic from his COPD. He denies any fevers chills and does feel somewhat nauseated no sweats. He has some chest discomfort from this. Otherwise he has no other complaints he felt normal up until this event. (Dandy Hemphill) - Related Data Home Medications Medication Instructions Recorded Confirmed ALPRAZolam [Xanax] 0.25 mg PO QID PRN 08/22/13 09/24/19 amLODIPine [Norvasc] 5 mg PO BID 08/22/13 09/24/19 Benzonatate [Tessalon Perles] 300 mg PO BID 09/02/16 09/24/19 Formoterol Fumarate [Perforomist] 20 mcg INHALATION QAM 09/02/16 09/24/19 Budesonide [Pulmicort] 1 mg INHALATION HS 08/16/17 09/24/19 guaiFENesin [Mucinex] 600 mg PO BID 08/16/17 09/24/19 Ipratropium-Albuterol Nebulize 3 ml INHALATION TID 08/24/17 09/24/19 [Duoneb 0.5 mg-3 mg/3 ml Soln] Ipratropium/Albuterol Sulfate 1 puff INHALATION QID PRN 08/31/18 09/24/19 [Combivent Respimat Inhaler] Spironolactone [Aldactone] 25 mg PO DAILY 09/06/18 09/24/19 Tamsulosin [Flomax] 0.4 mg PO DAILY 09/06/18 09/24/19 predniSONE 5 mg PO DAILY 09/06/18 09/24/19 Famotidine [Pepcid] 20 mg PO DAILY PRN 01/05/19 09/24/19 Triamcinolone 0.1% Cream [Kenalog 1 applic TOPICAL DAILY 04/27/19 09/24/19 0.1% Cream] Melatonin 10 mg PO HS 09/24/19 09/24/19 Naproxen Sodium [Aleve] 220 mg PO DAILY 09/24/19 09/24/19 Allergies Allergy/AdvReac Type Severity Reaction Status Date / Time levofloxacin [From Levaquin] AdvReac Swelling Verified 12/15/19 18:02 to fingers-states "OK to take Cipro" Review of Systems ROS Other: All systems not noted in ROS Statement are negative. <Svitlana Mejia - Last Filed: 12/16/19 13:39> ROS Other: All systems not noted in ROS Statement are negative. <Dandy Hemphill - Last Filed: 12/18/19 12:20> ROS Statement: Those systems with pertinent positive or pertinent negative responses have been documented in the HPI. Past Medical History Past Medical History: COPD, GERD/Reflux, Hearing Disorder / Deafness, Hypertension, Pneumonia, Prostate Disorder Additional Past Medical History / Comment(s): HEART MURMUR, DAILY STEROID-for "years", "stage 3 lung disease", SEVERE Tracheomalacia & Bronchiectasis. BPH. uses oxygen cont. @2l, residual pain right leg from shingles last year History of Any Multi-Drug Resistant Organisms: ESBL Date of last positivie culture/infection: 04/06/18 MDRO Source:: esbl bronch Additional Past Surgical History / Comment(s): BRONCHOSCOPY X7. HX EGD, COLONOSCOPY; BENIGN LYMPH NODE REMOVED FROM NECK AGE 19. Past Anesthesia/Blood Transfusion Reactions: No Reported Reaction Past Psychological History: No Psychological Hx Reported Smoking Status: Former smoker Past Alcohol Use History: None Reported Past Drug Use History: None Reported - Past Family History Mother Family Medical History: CVA/TIA, Myocardial Infarction ([place]) Father Family Medical History: Deep Vein Thrombosis (DVT), Myocardial Infarction ([place]) <Dandy Hemphill - Last Filed: 12/18/19 12:20> General Exam Limitations: no limitations General appearance: alert, anxious Head exam: Present: atraumatic, normocephalic, normal inspection Eye exam: Present: normal appearance, PERRL, EOMI. Absent: scleral icterus, conjunctival injection, periorbital swelling ENT exam: Present: normal exam, mucous membranes moist Neck exam: Present: normal inspection. Absent: tenderness, meningismus, lymphadenopathy Respiratory exam: Present: wheezes (Scattered wheezes), decreased breath sounds. Absent: respiratory distress, rales, rhonchi, stridor Cardiovascular Exam: Present: regular rate, normal rhythm, normal heart sounds. Absent: systolic murmur, diastolic murmur, rubs, gallop, clicks GI/Abdominal exam: Present: soft, normal bowel sounds. Absent: distended, tende rness, guarding, rebound, rigid Extremities exam: Present: normal inspection, full ROM, normal capillary refill. Absent: tenderness, pedal edema, joint swelling, calf tenderness Back exam: Present: normal inspection Neurological exam: Present: alert, oriented X3, CN II-XII intact Psychiatric exam: Present: normal affect, normal mood Skin exam: Present: warm, dry, intact, normal color. Absent: rash <Dandy Hemphill - Last Filed: 12/18/19 12:20> - General Exam Comments Initial Comments: This is a well-developed well-nourished awake alert oriented times 3 male (Dandy Hemphill) Course <Dandy Hemphill - Last Filed: 12/18/19 12:20> Vital Signs 12/15/19 12/15/19 12/15/19 18:02 18:18 19:04 Temperature 98.5 F Pulse Rate 76 70 Respiratory 24 18 Rate Blood Pressure 108/85 144/74 O2 Sat by Pulse 100 97 Oximetry 12/15/19 12/15/19 12/15/19 20:18 21:22 22:35 Temperature Pulse Rate 56 L 80 72 Respiratory 18 18 20 Rate Blood Pressure 169/88 159/79 149/91 O2 Sat by Pulse 96 96 95 Oximetry - Reevaluation(s) Reevaluation #1: 12/15/19 18:45 The initial medication did not work a second round will be attempted (Valerio Hemphill) Reevaluation #2: 12/15/19 19:49 Patient failed a repeat attempt at IV medication and hot water. I did discuss case with Dr. Stokes. The end of team has been called in. EEG will be performed. (Dandy Hemphill) Reevaluation #3: 12/15/19 20:50 Dr. Stokes did come the emergency department to see the patient. Endoscopy is in progress 12/15/19 20:59 The patient's care is endorsed to Dr. Mejia at our shift change (Dandy Hemphill) EKG Findings - EKG Results: EKG: interpreted by ERMD (Neutrophils which was PVCs rate 74 QRS 90 QT since QTC 412/[address]-T wave configuration.) <Dandy Hemphill - Last Filed: 12/18/19 12:20> Medical Decision Making - Lab Data Result diagrams: 12/15/19 18:51 12/15/19 18:51 <Svitlana Mejia - Last Filed: 12/16/19 13:39> - Lab Data Result diagrams: 12/15/19 18:51 12/15/19 18:51 <Dandy Hemphill - Last Filed: 12/18/19 12:20> - Medical Decision Making Patient was signed out to me after the removal of his food bolus. Patient appears well and is eager for discharge at this time. Daughter is at bedside and is requesting discharge as well. He is to follow up with his primary care physician. I also provided information for Dr. Riley's office. Return to the emergency room for any new or worsening symptoms. Patient is discharged home in stable condition (Svitlana Mejia) - Lab Data Lab Results 12/15/19 12/15/19 12/15/19 Range/Units 18:51 18:51 18:51 WBC 5.6 (3.8-10.6) k/uL RBC 5.21 (4.30-5.90) m/uL Hgb 15.5 (13.0-17.5) gm/dL Hct 47.4 (39.0-53.0) % MCV 91.0 (80.0-100.0) fL MCH 29.8 (25.0-35.0) pg MCHC 32.7 (31.0-37.0) g/dL RDW 14.5 (11.5-15.5) % Plt Count 218 (150-450) k/uL Neutrophils % 66 % Lymphocytes % 23 % Monocytes % 7 % Eosinophils % 2 % Basophils % 1 % Neutrophils # 3.7 (1.3-7.7) k/uL Lymphocytes # 1.3 (1.0-4.8) k/uL Monocytes # 0.4 (0-1.0) k/uL Eosinophils # 0.1 (0-0.7) k/uL Basophils # 0.1 (0-0.2) k/uL Sodium 139 (137-145) mmol/L Potassium 4.6 (3.5-5.1) mmol/L Chloride 107 (98-107) mmol/L Carbon Dioxide 25 (22-30) mmol/L Anion Gap 7 mmol/L BUN 27 H (9-20) mg/dL Creatinine 1.10 (0.66-1.25) mg/dL Est GFR (CKD-EPI)AfAm 73 (>60 ml/min/1.73 sqM) Est GFR (CKD-EPI)NonAf 63 (>60 ml/min/1.73 sqM) Glucose 129 H (74-99) mg/dL Calcium 9.6 (8.4-10.2) mg/dL Magnesium 2.3 (1.6-2.3) mg/dL Total Bilirubin 0.7 (0.2-1.3) mg/dL AST 34 (17-59) U/L ALT 20 (4-49) U/L Alkaline Phosphatase 83 (38-126) U/L Creatine Kinase 108 (55-170) U/L Troponin I 0.024 (0.000-0.034) ng/mL Total Protein 7.5 (6.3-8.2) g/dL Albumin 4.4 (3.5-5.0) g/dL Disposition Is patient prescribed a controlled substance at d/c from ED?: No Time of Disposition: 21:50 <Svitlana Mejia - Last Filed: 12/16/19 13:39> <Dandy Hemphill - Last Filed: 12/18/19 12:20> Clinical Impression: Esophageal foreign body Disposition: HOME SELF-CARE Condition: Stable Instructions (If sedation given, give patient instructions): Esophageal Foreign Body (ED) Additional Instructions: Please follow up with your primary care doctor. Return to the emergency department for any new or worsening symptoms Referrals: Erik Pal MD [Primary Care Provider] - 1-2 days Rosangela Stokes MD [STAFF PHYSICIAN] - 1-2 days
[2019-12-15] MEDS ORDERED: METOCLOPRAMIDE 5 MG/ML 2 ML VIAL IVP STA (18:41)
[2019-12-15] MEDS ORDERED: LORazepam 2 MG/ML INJ IV STA (18:41)
--- NOTE | 2019-12-15 18:50 | XR ---
EXAMINATION TYPE: XR chest 2V DATE OF EXAM: 12/15/2019 COMPARISON: November 10, 2018 HISTORY: Short of breath. COPD. Left side chest pain. TECHNIQUE: FINDINGS: There is patchy linear density in both lungs. There is no heart failure. Heart size is norm al. Thoracic aorta is atheromatous. There is no pleural effusion or pneumothorax. Bony thorax is inta ct. IMPRESSION: Bilateral patchy atelectasis increased compared to old exam. Normal heart.
[2019-12-15 19:07] LABS: Basophils # (A) 0.1 k/uL (0-0.2); Basophils % (A) 1 %; Eosinophils # (A) 0.1 k/uL (0-0.7); Eosinophils % (A) 2 %; HCT 47.4 % (39.0-53.0); HGB 15.5 gm/dL (13.0-17.5); Lymphocytes # (A) 1.3 k/uL (1.0-4.8); Lymphocytes % (A) 23 %; MCH 29.8 pg (25.0-35.0); MCHC 32.7 g/dL (31.0-37.0); Monocytes # (A) 0.4 k/uL (0-1.0); Monocytes % (A) 7 %; Neutrophils # (A) 3.7 k/uL (1.3-7.7); Neutrophils % (A) 66 %; Platelet Count 218 k/uL (150-450); RBC 5.21 m/uL (4.30-5.90); RDW 14.5 % (11.5-15.5); WBC 5.6 k/uL (3.8-10.6)
[2019-12-15 19:29] LABS: Albumin 4.4 g/dL (3.5-5.0); Calcium 9.6 mg/dL (8.4-10.2); Magnesium 2.3 mg/dL (1.6-2.3); Total Bilirubin 0.7 mg/dL (0.2-1.3); Total Protein 7.5 g/dL (6.3-8.2)
[2019-12-15 19:30] LABS: Potassium 4.6 mmol/L (3.5-5.1)
[2019-12-15] MEDS ORDERED: SODIUM CHLORIDE 0.9% 500 ML IV ONE (20:30)
[2019-12-15] MEDS ORDERED: PROPOFOL 10 MG/ML 20 ML VIAL IV ONE (20:35)
[2019-12-15 22:37] VITALS: BP 149/91; PULSE 72; RESP 20
--- NOTE | 2019-12-16 08:23 | CONS ---
CONSULTATION DATE OF SERVICE: 12/15/2019 REASON FOR CONSULTATION: Acute food impaction. HISTORY OF PRESENT ILLNESS: The patient is a 79-year-old white male who was eating steak for dinner and could not swallow any further. He tried drinking water with no help. He started having some shortness of breath and his family brought him to the emergency room and we are consulted for an EGD for foreign body removal. The patient states that he has been having intermittent dysphagia to solids. He denies any heartburn. He reports no odynophagia. PAST MEDICAL HISTORY: Hypertension COPD, anxiety. MEDICATIONS: Xanax, Norvasc, Tessalon Perles, Pulmicort, Mucinex, albuterol, DuoNeb, prednisone, Flomax, Aldactone, Combivent, melatonin, naproxen. ALLERGIES: LEVAQUIN. SOCIAL HISTORY: Remote history of smoking. No alcohol use. PAST SURGICAL HISTORY: Multiple bronchoscopies. FAMILY HISTORY: Mother had coronary artery disease. Father had DVT. REVIEW OF SYSTEMS: CARDIOPULMONARY: No chest pain or shortness of breath. : No dysuria or hematuria. MUSCULOSKELETAL: Unremarkable. SKIN: Unremarkable. ENDOCRINE: Unremarkable. PSYCHIATRIC: Unremarkable. GI: As mentioned above. ENT: Vision unremarkable. CONSTITUTIONAL: No recent weight loss. No fever, chills, night sweats. PHYSICAL EXAMINATION: He appears comfortable. No apparent distress. VITAL SIGNS: Stable. Blood pressure is 169/88, pulse rate 98 and afebrile. HEENT: Examination unremarkable. Conjunctivae are pink. Sclerae anicteric. Oral cavity no lesions. NECK: No JVD or lymph node enlargement. CHEST: Clear to auscultation. HEART: Regular rate and rhythm. ABDOMEN: Soft. Bowel sounds positive. No organomegaly. EXTREMITIES: No pedal edema. NEUROLOGIC: Alert and oriented x3. No focal deficits. LABS: Hemoglobin 15.5, WBC 5.6, platelets normal. BUN 27, creatinine 1.13. IMPRESSION: 1. Acute food impaction in this patient who was eating a piece of steak for dinner today and could not swallow any further. This is his first significant episode needing an ER visit. He has occasional dysphagia to solids for the last 1 or 2 years duration. No history of gastroesophageal reflux disease. 2. Chronic obstructive pulmonary disease. 3. Hypertension. RECOMMENDATIONS: Will proceed with EGD with foreign body removal on an emergency basis in the ER. I discussed with the patient, as well as his daughter who is at the bedside risks, benefits and complications and they are agreeable to it. Thank you for this consultation. LEON / JP: [id number] /
--- NOTE | 2019-12-16 08:29 | PCN ---
PROCEDURE NOTE DATE OF SERVICE: 12/15/2019 REQUESTING PHYSICIAN: Dr. Pal. BRIEF HISTORY: Patient is an 79-year-old white male who came to the emergency room with acute food impaction. He was eating some turkey this evening for dinner and could not swallow any further. He has been having intermittent dysphagia to solids. He is scheduled for an upper endoscopy on an emergency basis at the bedside in the ER. PROCEDURE PERFORMED: EGD with foreign body removal. PREOPERATIVE DIAGNOSIS: Acute food impaction. ANESTHESIA: IV sedation per anesthesia. PROCEDURE: After informed consent was obtained from the patient, the procedure was performed in the emergency room. IV conscious sedation was administered by Anesthesia and continuous monitoring. Initially the Olympus GF180 video endoscope was inserted in the mouth and the esophagus was intubated without any difficulty and was gradually advanced into the distal esophagus. There was a large piece of meat that was lodged in the distal esophagus. Gently with the scope I was able to push the piece of meat into the stomach with some difficulty. The scope was advanced to the stomach and duodenum. The bulb and second part of the duodenum appeared normal. The scope was then withdrawn to the stomach, adequately insufflated with air and upon careful examination, mucosa of the antrum, body, cardia and fundus appeared normal. Scope was then withdrawn into the esophagus. There was a small hiatal hernia noted. There was a widely patent distal esophageal Schatzki's ring noted. The esophagus was slightly tortuous in the distal esophagus, but there was no obvious esophagitis noted. The rest of the esophagus appeared normal and the patient tolerated the procedure well. IMPRESSION: 1. Food impaction in the distal esophagus status post removal as described above. 2. Distal esophageal Schatzki's ring. RECOMMENDATIONS: Findings of this examination were discussed with the patient, as well as the family. At this time, he will be discharged home after recovery. He was advised to be on a soft diet. He will follow up in the office in 2 weeks following discharge from the hospital. MMODL / IJN: [id number] /
== END 2019-12-15 22:37 | disposition home or self-care (01) ==
LOC: EC 17:58
DX: T18.128A Food in esophagus causing other injury, initial encounter (principal); K22.2 Esophageal obstruction; J44.9 Chronic obstructive pulmonary disease, unspecified; I10 Essential (primary) hypertension; N42.9 Disorder of prostate, unspecified; K21.9 Gastro-esophageal reflux disease without esophagitis; Z79.51 Long term (current) use of inhaled steroids; Z79.899 Other long term (current) drug therapy; Z88.1 Allergy status to other antibiotic agents; Z87.891 Personal history of nicotine dependence; Z87.01 Personal history of pneumonia (recurrent); X58.XXXA Exposure to other specified factors, initial encounter; Y92.89 Other specified places as the place of occurrence of the external cause
CPT/HCPCS: 99284; 96374; 96375 ×2; 96376; 43247; 36415; 80053; 82550; 83735; 84484; 85025; 71046; J2060; J1610; J2765; J2704; 93005

== ENCOUNTER 2020-02-06 13:36 | Day surgery (SDC) | payer MEDICARE ==
[2020-02-05 14:24] VITALS: BMI 28.8
[2020-02-06 14:15] LABS: Glucose,Whole Blood 94 mg/dL (75-99)
[2020-02-06 14:16] VITALS: RESP 16; TEMP 98.6
[2020-02-06] MEDS ORDERED: PROPOFOL 10 MG/ML 20 ML VIAL IV ONE (14:49)
[2020-02-06] MEDS ORDERED: LIDOCAINE 1% INJ 10MG/ML (20 ML MDV) ONE (14:49)
[2020-02-06] MEDS ORDERED: fentaNYL (PF) 50 MCG/ML 2 ML AMP ONE (14:49)
[2020-02-06] MEDS ORDERED: KETAMINE 10 MG/ML 20 ML VIAL ONE (14:49)
[2020-02-06] MEDS ORDERED: LIDOCAINE 2% INJ 20 MG/ML INTRATRACH ONE (14:58)
[2020-02-06 15:32] VITALS: BP 159/100; PULSE 55
[2020-02-06 18:28] LABS: Appearance,BF Blood Tinged; Nucleated Cells, Body Fluid 40 /uL; RBC, Body Fluid 6860 /uL
[2020-02-06 18:30] LABS: Mononuclear WBC,Body Fluid 83 %; Polynuclear WBC,Body Fluid 17 %; Total Cells Counted,Body Fluid 100
--- NOTE | 2020-02-06 20:44 | OP ---
OPERATIVE REPORT PROCEDURE: Bronchoscopy, airway examination, therapeutic lavage and BAL. PREOPERATIVE DIAGNOSIS: Severe tracheobronchomalacia and bronchiectasis and chronic obstructive pulmonary disease. POSTOPERATIVE DIAGNOSIS: Severe tracheobronchomalacia and bronchiectasis and chronic obstructive pulmonary disease. AUTOMOTIVE REFINISHER: Dr. Griggs. There was informed consent. There was universal timeout. The procedure took place in room number 1. Anesthesia provided general anesthesia. PROCEDURE DESCRIPTION: After the patient was adequately sedated and fully monitored, the bronchoscope was inserted through the right nostril. It passed through the right nasopharynx into the oropharynx. The hypopharynx was identified and topicalized. The hypopharyngeal structures, including anterior commissure, true cords, false cords, arytenoids, piriform sinuses, right and left epiglottis all appeared normal. Next the glottic opening was topicalized. The bronchoscope was pushed through the glottic opening into the trachea. Trachea appeared relatively normal, although there was significant tracheomalacia. There were thick secretions noted in the distal trachea. They were suctioned with saline. Tracheal ross was sharp. The right and left mainstems were topicalized. The right upper lobe and its 3 segments, the right middle lobe and its 2 segments, the right lower lobe and its 5 segments, the left upper lobe proper and its 2 segments, the lingula and its 2 segments and the left lower lobe and its 4 segments all had similar findings of diffuse airway erythema, hyperemia, mucosal friability. There were thick secretions noted throughout. They were suctioned with some difficulty. There was vascular engorgement. There was no dominant mass or tumor. After most of the secretions were suctioned, the bronchoscope was wedged into the right middle lobe. BAL took place. Thirty mL was recovered. The fluid was sent for analysis. Additional secretions were suctioned without difficulty. The bronchoscope was withdrawn and the patient will be recovered. There was no immediate complication. MMODL / IJN: [id number] /
== END 2020-02-06 15:45 | disposition home or self-care (01) ==
LOC: ORWHC2ENDO 13:36
PROVIDERS: ATTEND Internal Medicine Critical Care Medicine
DX: J47.9 Bronchiectasis, uncomplicated (principal); J98.09 Other diseases of bronchus, not elsewhere classified; J39.8 Other specified diseases of upper respiratory tract; F41.9 Anxiety disorder, unspecified; I10 Essential (primary) hypertension; N40.0 Benign prostatic hyperplasia without lower urinary tract symptoms; H91.90 Unspecified hearing loss, unspecified ear; K21.9 Gastro-esophageal reflux disease without esophagitis; Z88.8 Allergy status to other drugs, medicaments and biological substances; Z88.1 Allergy status to other antibiotic agents; Z79.899 Other long term (current) drug therapy; Z79.51 Long term (current) use of inhaled steroids; Z79.52 Long term (current) use of systemic steroids; Z87.09 Personal history of other diseases of the respiratory system; Z87.891 Personal history of nicotine dependence; Z98.890 Other specified postprocedural states; Z97.2 Presence of dental prosthetic device (complete) (partial); Z79.1 Long term (current) use of non-steroidal anti-inflammatories (NSAID); Z82.49 Family history of ischemic heart disease and other diseases of the circulatory system; Z82.3 Family history of stroke; Z83.438 Family history of other disorder of lipoprotein metabolism and other lipidemia
CPT/HCPCS: 31624; 87798 ×3; 87496; 87498; 87529; 88108; 88305; 89050; 87252; 87502; 87634; 87070; 87205; 87116; 87102; 87206; J2001 ×2; J0461; J3010; J2704

== ENCOUNTER 2020-05-15 10:35 | Day surgery (SDC) | payer MEDICARE ==
[2020-05-09 11:25] VITALS: BMI 28.8
[~2020-05-15 10:35] MED LIST changes: -LACTATED RINGERS 1,000 ML IV SCH
[2020-05-15 11:12] VITALS: TEMP 98
[2020-05-15] MEDS ORDERED: LACTATED RINGERS 1,000 ML IV ONE (11:35)
[2020-05-15] MEDS ORDERED: LIDOCAINE 1% (10MG/ML) FOR IV START INTRADERMA ONE (11:35)
[2020-05-15] MEDS ORDERED: PROPOFOL 10 MG/ML 20 ML VIAL IV ONE (11:39)
[2020-05-15 11:40] LABS: Glucose,Whole Blood 74 mg/dL (75-99)
[2020-05-15 12:53] VITALS: BP 156/60; PULSE 60; RESP 20
[2020-05-15 15:10] LABS: Appearance,BF Clear
[2020-05-15 15:13] LABS: Nucleated Cells, Body Fluid 9 /uL; RBC, Body Fluid 70 /uL
--- NOTE | 2020-05-15 20:20 | OP ---
OPERATIVE REPORT PULMONARY/CRITICAL CARE PROCEDURE NOTE: PROCEDURE: Bronchoscopy, airway examination, therapeutic lavage, BAL. PREOPERATIVE DIAGNOSIS: Tracheobronchomalacia with retained secretions. POSTOPERATIVE DIAGNOSIS: Tracheobronchomalacia with retained secretions. OPERATORS: 1. Dr. Griggs. 2. Dr. Ortega. There was informed consent and universal timeout. The patient's procedure took place in room #1. Anesthesia provided general anesthesia. The patient agreed to the procedure. PROCEDURE DESCRIPTION: The bronchoscope was inserted through the right nostril. It passed through the right nasopharynx into the oropharynx. The hypopharynx was identified. There were thick secretions noted in the hypopharynx. The glottic opening was topicalized with lidocaine. Once topicalized, the bronchoscope was pushed through the glottic opening into the trachea. Evaluation of the hypopharynx revealed normal anterior commissure, true cords, false cords, arytenoids, piriform sinuses, right and left valleculae and epiglottis. Next, the trachea was evaluated. There was severe tracheomalacia with almost complete collapse of the trachea all the way down to the tracheal ross. There were thick secretions noted throughout. They were suctioned with the aid of saline. Next the right and left mainstem were topicalized. The right upper lobe and its 3 segments, right middle lobe and its 2 segments, right lower lobe and its 5 segments, left upper lobe proper and its 2 segments, lingula and its 2 segments, and left lower lobe and its 4 segments all had similar findings of diffuse airway erythema and hyperemia. There was diffuse bronchitis throughout. There was some mucosal friability. There was no dominant mass or tumor. The patient had severe bronchomalacia. There were thick secretions noted throughout. They were suctioned with saline. Next, the bronchoscope was wedged into the right middle lobe. BAL took place. The patient tolerated the procedure well. Fluid in the amount of 32 mL was recovered and will be sent to the laboratory for analysis. There was no immediate complication. The patient will be recovered. MMODL / IJN: [id number] /
[2020-05-15 20:48] LABS: LDH, Body Fluid Source Bronchoalviolar Lav; Total Protein, Body Fluid 4.8 mg/dL
== END 2020-05-15 12:58 | disposition home or self-care (01) ==
LOC: ORWHC2ENDO 10:35
PROVIDERS: ATTEND Internal Medicine Critical Care Medicine
DX: J98.09 Other diseases of bronchus, not elsewhere classified (principal); J39.8 Other specified diseases of upper respiratory tract; R09.3 Abnormal sputum; J98.4 Other disorders of lung; F41.9 Anxiety disorder, unspecified; I10 Essential (primary) hypertension; J47.1 Bronchiectasis with (acute) exacerbation; I38 Endocarditis, valve unspecified; K21.9 Gastro-esophageal reflux disease without esophagitis; N40.0 Benign prostatic hyperplasia without lower urinary tract symptoms; J40 Bronchitis, not specified as acute or chronic; Z79.899 Other long term (current) drug therapy; Z79.51 Long term (current) use of inhaled steroids; Z79.52 Long term (current) use of systemic steroids; Z87.09 Personal history of other diseases of the respiratory system; Z87.891 Personal history of nicotine dependence; Z98.890 Other specified postprocedural states; Z88.1 Allergy status to other antibiotic agents; Z97.2 Presence of dental prosthetic device (complete) (partial); Z99.81 Dependence on supplemental oxygen; Z82.49 Family history of ischemic heart disease and other diseases of the circulatory system; Z82.3 Family history of stroke; Z83.438 Family history of other disorder of lipoprotein metabolism and other lipidemia
CPT/HCPCS: 87798 ×3; 87496; 87498; 87529; 88108; 88305; 89050; 87252; 87502; 87634; 87070; 87205; 87116; 87102; 87206; 83615; 84157; 31624; J0461; J2704

== ENCOUNTER 2020-07-08 11:10 | Day surgery (SDC) | payer MEDICARE ==
[2020-07-03 10:36] VITALS: BMI 29.0
[~2020-07-08 11:10] MED LIST changes: +LACTATED RINGERS 1,000 ML IV SCH; +LIDOCAINE 1% (10MG/ML) FOR IV START INTRADERMA PRN; +MIDAZOLAM 2 MG/2 ML VIAL IV PRN; +fentaNYL (PF) 50 MCG/ML 2 ML AMP IV PRN
[2020-07-08 11:57] LABS: Glucose,Whole Blood 80 mg/dL (75-99)
[2020-07-08 12:03] VITALS: TEMP 98.4
[2020-07-08] MEDS ORDERED: LIDOCAINE 1% INJ 10MG/ML (20 ML MDV) ONE (12:30)
[2020-07-08] MEDS ORDERED: PROPOFOL 10 MG/ML 20 ML VIAL IV ONE (12:30)
[2020-07-08 13:20] VITALS: BP 157/90; PULSE 47; RESP 20
--- NOTE | 2020-07-09 03:39 | PCN ---
PROCEDURE NOTE PULMONARY/CRITICAL CARE PROCEDURE: PROCEDURE PERFORMED: Bronchoscopy, BAL, airway exam, therapeutic lavage. PREOP DIAGNOSIS: Acute bronchitis. POSTOP DIAGNOSIS: Acute bronchitis. WASHING MACHINE INSTALLER was Lupe Leos. She provided general anesthesia. There was informed consent and universal timeout. The patient's procedure took place in room #1. There was informed consent. The BAL took place in the right middle lobe. DESCRIPTION OF PROCEDURE: After the patient was adequately sedated and being fully monitored, the bronchoscope was inserted through the right nostril. It passed through the right nasopharynx into the oropharynx. The hypopharynx was identified and topicalized. Hypopharyngeal structures including anterior commissure, true cords, false cords, arytenoids, piriform sinuses, right and left valleculae and epiglottis all appeared normal. After topicalization, the bronchoscope was pushed through the glottic opening into the trachea. The trachea was very collapsible. There was significant tracheomalacia. There were thick secretions noted throughout the trachea. They were suctioned. Next the right and left mainstem were topicalized. The right upper lobe and its 3 segments, right middle lobe and its 2 segments, right lower lobe and its 5 segments, left upper lobe proper and its 2 segments, lingula and its 2 segments in the left lower lobe and its 4 segments all had similar findings of diffuse airway erythema and hyperemia. There was some vascular engorgement. There was some mucosal friability. There was no dominant mass or tumor. There were thick secretions noted throughout. They were suctioned with saline lavage. Next the bronchoscope was wedged into the right middle lobe. The BAL took place. The patient tolerated the procedure well. Thirty mL was collected. The bronchoscope was then withdrawn. The patient will be recovered. There was no immediate complication. The patient tolerated the procedure well. MMODL / IJN: [id number] /
[2020-07-09 16:01] LABS: Appearance,BF Hazy; Color,BF Colorless; Nucleated Cells, Body Fluid 17 /uL; RBC, Body Fluid 197 /uL
== END 2020-07-08 13:30 | disposition home or self-care (01) ==
LOC: ORWHC2ENDO 11:10
PROVIDERS: ATTEND Internal Medicine Critical Care Medicine
DX: J20.9 Acute bronchitis, unspecified (principal); I10 Essential (primary) hypertension; F41.9 Anxiety disorder, unspecified; Z79.899 Other long term (current) drug therapy; Z88.1 Allergy status to other antibiotic agents; Z99.81 Dependence on supplemental oxygen
CPT/HCPCS: 87798 ×3; 87496; 87498; 87529; 88108; 88305; 89050; 87252; 87502; 87634; 87116; 87102; 87206; 31624; J0461; J2001; J2704; 87070; 87205

== ENCOUNTER 2020-08-27 12:41 | Day surgery (SDC) | payer MEDICARE ==
[~2020-08-27 12:41] MED LIST changes: -LIDOCAINE 1% (10MG/ML) FOR IV START INTRADERMA PRN; -MIDAZOLAM 2 MG/2 ML VIAL IV PRN; -fentaNYL (PF) 50 MCG/ML 2 ML AMP IV PRN
[2020-08-27] MEDS ORDERED: fentaNYL (PF) 50 MCG/ML 2 ML AMP ONE (13:23)
[2020-08-27] MEDS ORDERED: MIDAZOLAM 2 MG/2 ML VIAL ONE (13:23)
[2020-08-27] MEDS ORDERED: LIDOCAINE 1% INJ 10MG/ML (20 ML MDV) ONE (13:23)
[2020-08-27] MEDS ORDERED: PROPOFOL 10 MG/ML 20 ML VIAL IV ONE (13:23)
[2020-08-27 13:25] VITALS: RESP 16; TEMP 98.1
[2020-08-27] MEDS ORDERED: LIDOCAINE 2% INJ 20 MG/ML INTRATRACH ONE (13:31)
[2020-08-27 14:35] VITALS: BP 144/75; PULSE 43
[2020-08-27 18:30] LABS: Appearance,BF Cloudy; Color,BF Pink; Nucleated Cells, Body Fluid 40 /uL; RBC, Body Fluid 4880 /uL
[2020-08-27 18:46] LABS: Mononuclear WBC,Body Fluid 37 %; Polynuclear WBC,Body Fluid 63 %; Total Cells Counted,Body Fluid 100
--- NOTE | 2020-08-29 15:11 | PCN ---
PROCEDURE NOTE PULMONARY/CRITICAL CARE PROCEDURE: PROCEDURE: Bronchoscopy, airway examination and therapeutic lavage, bal. PREOPERATIVE DIAGNOSIS: Severe bronchiectasis and tracheobronchomalacia with mucus retention. POSTOPERATIVE DIAGNOSIS: Severe bronchiectasis and tracheobronchomalacia with mucus retention. OPERATORS: Dr. Griggs and Dr. Thornton. DESCRIPTION OF PROCEDURE: The patient's procedure was done in the endoscopy room #1. VOICE DATA COMMUNICATIONS ENGINEER provided general anesthesia. There was informed consent and universal timeout. After the patient was adequately sedated, the bronchoscope was inserted through the patient's right nostril. It passed through the right nasopharynx into the oropharynx. The hypopharynx was identified and topicalized. The hypopharyngeal structures, including anterior commissure, true cords, false cords, arytenoids, piriform sinuses, right and left valleculae, and epiglottis all appeared normal. The glottic opening was topicalized. The trachea had severe tracheomalacia. There were some secretions noted in the distal trachea. The tracheal ross was sharp. The right and left mainstem were topicalized. There was significant tracheobronchomalacia throughout the airways. The right upper lobe and its 3 segments, right middle lobe and its 2 segments, right lower lobe and its 5 segments, left upper lobe proper and its 2 segments, the lingula and its 2 segments and the left lower lobe and its 4 segments all had similar findings of diffuse airway erythema and hyperemia. There were thick secretions noted throughout. They were suctioned with some difficulty with the aid of saline lavage. There was no dominant mass or tumor. There was mucosal friability. There was diffuse airway with erythema and hyperemia. There was some vascular prominence. The bronchoscope was wedged into the right middle lobe. The BAL took place. Thirty mL of fluid was recovered for analysis. The patient tolerated the procedure well. Any additional secretions were suctioned. There was no immediate complication. The patient tolerated the procedure well without complication. The patient will be recovered. We did get a chance to speak to the patient's and son-in-law. MMODL / IJN: [id number] /
== END 2020-08-27 14:34 | disposition home or self-care (01) ==
LOC: ORWHC2ENDO 12:41
PROVIDERS: ATTEND Internal Medicine Critical Care Medicine
DX: J47.9 Bronchiectasis, uncomplicated (principal); J39.8 Other specified diseases of upper respiratory tract; J98.09 Other diseases of bronchus, not elsewhere classified; F41.9 Anxiety disorder, unspecified; I10 Essential (primary) hypertension; N42.9 Disorder of prostate, unspecified; J44.9 Chronic obstructive pulmonary disease, unspecified; K21.9 Gastro-esophageal reflux disease without esophagitis; Z97.2 Presence of dental prosthetic device (complete) (partial); Z82.49 Family history of ischemic heart disease and other diseases of the circulatory system; Z82.3 Family history of stroke; Z83.438 Family history of other disorder of lipoprotein metabolism and other lipidemia; Z87.891 Personal history of nicotine dependence; Z99.81 Dependence on supplemental oxygen; Z79.52 Long term (current) use of systemic steroids; Z79.1 Long term (current) use of non-steroidal anti-inflammatories (NSAID); Z79.899 Other long term (current) drug therapy; Z88.1 Allergy status to other antibiotic agents; Z88.8 Allergy status to other drugs, medicaments and biological substances
CPT/HCPCS: 87798 ×3; 87496; 87498; 87529; 88108; 88305; 89050; 87252; 87502; 87634; 87070; 87205; 87116; 87102; 87206; 31624; J2001 ×2; J2250; J0461; J3010; J2704

== ENCOUNTER 2020-10-08 11:40 | Day surgery (SDC) | payer MEDICARE ==
[2020-10-06 09:42] VITALS: BMI 26.4
[~2020-10-08 11:40] MED LIST changes: +LIDOCAINE 1% (10MG/ML) FOR IV START INTRADERMA PRN; -SODIUM CHLORIDE 0.9% 1,000 ML IV SCH
[2020-10-08 12:23] LABS: Glucose,Whole Blood 81 mg/dL (75-99)
[2020-10-08] MEDS ORDERED: fentaNYL (PF) 50 MCG/ML 2 ML AMP ONE (12:31)
[2020-10-08] MEDS ORDERED: LIDOCAINE 1% INJ 10MG/ML (20 ML MDV) ONE (12:31)
[2020-10-08] MEDS ORDERED: MIDAZOLAM 2 MG/2 ML VIAL ONE (12:31)
[2020-10-08] MEDS ORDERED: GLYCOPYRROLATE 0.2 MG/ML 2 ML VIAL ONE (12:31)
[2020-10-08] MEDS ORDERED: PROPOFOL 10 MG/ML 20 ML VIAL IV ONE (12:31)
[2020-10-08 13:03] VITALS: TEMP 97.8
[2020-10-08 14:19] VITALS: BP 136/84; PULSE 48; RESP 20
--- NOTE | 2020-10-08 15:02 | PCN ---
PROCEDURE NOTE PULMONARY/CRITICAL CARE PROCEDURE NOTE: PROCEDURE PERFORMED: Bronchoscopy, airway examination, therapeutic lavage, BAL right middle lobe. PREOP DIAGNOSIS: Tracheobronchomalacia. POSTOP DIAGNOSIS: Tracheobronchomalacia. OPERATORS: Dr. Griggs, Dr. Thornton and Dr. Ortega. ANESTHESIA: Anesthesia provided general anesthesia. PROCEDURE IN DETAIL: The patient's procedure was done in room #2. There was informed consent and universal timeout. After the patient was adequately sedated and being fully monitored, the bronchoscope was inserted through the right nostril. It passed through the right nasopharynx into the oropharynx. The hypopharynx was identified. Anterior commissure, true cords, false cords, arytenoids, piriform sinuses, right and left valleculae and epiglottis all appeared normal. After topicalization, bronchoscope was pushed through the glottic opening into the trachea. Trachea appeared normal except for severe tracheomalacia. There was no masses or lesions within the trachea. They were fair amounts of secretions noted within the trachea. They were suctioned with some difficulty. Tracheal ross was sharp. Right and left mainstem were topicalized. In addition to the tracheomalacia that was noted, there was significant bronchomalacia as well. Next, after topicalization, there was a thorough evaluation of the right upper lobe and its 3 segments right middle lobe and its 2 segments, the right lower lobe and its 5 segments, left upper lobe proper and its 2 segments, the lingula and its 2 segments in the left lower lobe and its 4 segments. There was some anthracotic pigmentation noted throughout. There was no mass or tumor. There were thick secretions noted throughout. There was a mild to moderate degree of bronchitis with erythema and hyperemia of the airways. There was some vascular engorgement and some mucosal friability. The secretions were suctioned with the aid of saline. The bronchoscope was then wedged into the right middle lobe. Thirty mL of saline was recovered from the right middle lobe and was sent to the laboratory for analysis. The patient tolerated the procedure well. The bronchoscope was withdrawn. The patient will be recovered. There was no immediate complication. MMODL / IJN: [id number] /
== END 2020-10-08 14:22 | disposition home or self-care (01) ==
LOC: ORWHC2ENDO 11:40
PROVIDERS: ATTEND Internal Medicine Critical Care Medicine
DX: J39.8 Other specified diseases of upper respiratory tract (principal); J98.09 Other diseases of bronchus, not elsewhere classified; F41.9 Anxiety disorder, unspecified; I10 Essential (primary) hypertension; J44.9 Chronic obstructive pulmonary disease, unspecified; Z99.81 Dependence on supplemental oxygen; F17.210 Nicotine dependence, cigarettes, uncomplicated; N42.9 Disorder of prostate, unspecified; K21.9 Gastro-esophageal reflux disease without esophagitis; Z79.51 Long term (current) use of inhaled steroids; Z79.52 Long term (current) use of systemic steroids; Z79.899 Other long term (current) drug therapy; Z97.2 Presence of dental prosthetic device (complete) (partial); Z88.1 Allergy status to other antibiotic agents
CPT/HCPCS: 87798 ×3; 87496; 87498; 87529; 88108; 88305; 87252; 87502; 87634; 87070; 87205; 87116; 87102; 87206; 31624; J2250; J2001; J3010; J2704

== ENCOUNTER 2020-11-20 12:09 | Day surgery (SDC) | payer MEDICARE ==
[2020-11-18 11:51] VITALS: BMI 29.0
[~2020-11-20 12:09] MED LIST changes: -LIDOCAINE 1% (10MG/ML) FOR IV START INTRADERMA PRN
[2020-11-20 12:43] VITALS: TEMP 97.3
[2020-11-20] MEDS ORDERED: LIDOCAINE 1% INJ 10MG/ML (20 ML MDV) ONE (13:20)
[2020-11-20] MEDS ORDERED: KETAMINE 10 MG/ML 20 ML VIAL ONE (13:20)
[2020-11-20] MEDS ORDERED: PROPOFOL 10 MG/ML 20 ML VIAL IV ONE (13:20)
[2020-11-20] MEDS ORDERED: IV FLUID CONTINUATION 1,000 ML IV ONE (13:45)
[2020-11-20 14:39] VITALS: BP 149/88; PULSE 55; RESP 18
[2020-11-20 17:10] LABS: Appearance,BF Hazy; Color,BF Red; Nucleated Cells, Body Fluid 50 /uL; RBC, Body Fluid 3539 /uL
[2020-11-20 17:13] LABS: Mononuclear WBC,Body Fluid 56 %; Polynuclear WBC,Body Fluid 44 %; Total Cells Counted,Body Fluid 100
--- NOTE | 2020-11-20 22:25 | PCN ---
PROCEDURE NOTE PROCEDURE PERFORMED: A bronchoscopy, airway examination, therapeutic lavage, BAL right middle lobe. OPERATORS: Dr. Griggs and Dr. Thornton. There was informed consent and universal timeout. The patient's procedure took place in room #1 Endoscopy. ANESTHESIA: Provided general anesthesia. DESCRIPTION OF PROCEDURE: After the patient was adequately sedated and being fully monitored, the bronchoscope was inserted through the right nostril. It passed through the right nasopharynx into the oropharynx. The hypopharynx was identified. The important structures such as anterior commissure, true cords, false cords, arytenoids, piriform sinuses, right and left valleculae and epiglottis were all found to be normal. After topicalization, the bronchoscope was pushed through the glottic opening into the trachea. The patient had very severe tracheomalacia. This is a known finding in him. There were some secretions noted distally in the trachea along the left lateral wall of the trachea. Tracheal ross was relatively sharp. The right and left mainstem were topicalized. The right upper lobe and its 3 segments, right middle lobe and its 2 segments, right lower lobe and its 5 segments, left upper lobe proper and its 2 segments, lingula and its 2 segments and left lower lobe and its 4 segments all had similar findings of diffuse airway erythema and hyperemia. There was mucosal friability. There was vascular engorgement. The mucosa bled easily. There was no dominant mass or tumor. There were thick yellow secretions noted throughout. They were suctioned with saline lavage. Next the bronchoscope was wedged into the right middle lobe. Roughly 30 mL of purulent looking fluid was recovered. It will be sent to the laboratory to be analyzed. The patient tolerated the procedure well. Subsequent to that, each of the lobes instilled between 10 and 20 mL of saline and those areas were suctioned to remove any additional secretions that may have been present. The patient tolerated the procedure well. The bronchoscope was withdrawn and the patient will be recovered. There was no immediate complication. MMODL / IJN: [id number] /
== END 2020-11-20 14:55 | disposition home or self-care (01) ==
LOC: ORWHC2ENDO 12:09
PROVIDERS: ATTEND Internal Medicine Critical Care Medicine
DX: J39.8 Other specified diseases of upper respiratory tract (principal); I10 Essential (primary) hypertension; J44.9 Chronic obstructive pulmonary disease, unspecified; F39 Unspecified mood [affective] disorder; K21.9 Gastro-esophageal reflux disease without esophagitis; Z87.891 Personal history of nicotine dependence
CPT/HCPCS: 31624; 88108; 88305; 89050; 87070; 87205; J0461; J2001; J2704

== ENCOUNTER 2021-01-22 10:04 | Day surgery (SDC) | payer MEDICARE ==
[2021-01-21 08:31] VITALS: BMI 29.2
[2021-01-22 10:43] VITALS: RESP 18; TEMP 97.6
[2021-01-22 10:45] LABS: Glucose,Whole Blood 87 mg/dL (75-99)
[2021-01-22] MEDS ORDERED: LIDOCAINE 1% (10MG/ML) FOR IV START SQ ONE (10:54)
[2021-01-22] MEDS ORDERED: fentaNYL (PF) 50 MCG/ML 2 ML AMP ONE (11:17)
[2021-01-22] MEDS ORDERED: KETAMINE 10 MG/ML 20 ML VIAL ONE (11:17)
[2021-01-22] MEDS ORDERED: MIDAZOLAM 2 MG/2 ML VIAL ONE (11:17)
[2021-01-22] MEDS ORDERED: PROPOFOL 10 MG/ML 20 ML VIAL IV ONE (11:17)
[2021-01-22] MEDS ORDERED: LIDOCAINE 2% INJ 20 MG/ML INTRATRACH ONE ×2 (11:21→11:30)
[2021-01-22 12:00] VITALS: BP 137/87; PULSE 56
--- NOTE | 2021-01-22 18:47 | PCN ---
PROCEDURE NOTE PULMONARY/CRITICAL CARE PROCEDURE NOTE: PROCEDURE: Bronchoscopy airway examination, therapeutic lavage, BAL right middle lobe. PREOPERATIVE DIAGNOSIS: Bronchiectasis and severe tracheobronchomalacia, retained secretions. POSTOPERATIVE DIAGNOSIS: Bronchiectasis and severe tracheobronchomalacia, retained secretions. ANALOG CIRCUIT DESIGNER: Dr. Griggs. ANESTHESIA: Anesthesia provided general anesthesia. DESCRIPTION OF PROCEDURE: After the patient was adequately being monitored, the bronchoscope was inserted through the patient's right nostril. It passed through the right nasopharynx into the oropharynx and subsequently into the hypopharynx. The hypopharyngeal structures were evaluated and included the anterior commissure, true cords, false cords, arytenoids, piriform sinuses, right and left, valleculae and epiglottis. Everything appeared normal. The glottic opening was topicalized with lidocaine. Next, the bronchoscope was pushed through the glottic opening into the trachea. The patient had severe tracheomalacia. The trachea was very collapsed. Some secretions were noted in the trachea. They were purulent-looking. Tracheal ross was sharp. The right and left mainstem were topicalized. The right upper lobe and its 3 segments, the right middle lobe and its 2 segments, the right lower lobe and its 5 segments, the left upper lobe proper and its 2 segments, the lingula and its 2 segments, and the left lower lobe and its 4 segments all had similar findings of severe bronchomalacia. There were thick white secretions noted throughout. There was some mucosal friability. The mucosa was erythematous and hyperemic. There was no distinct mass or tumor. The secretions were suctioned with the aid of saline lavage. The bronchoscope was wedged into the right middle lobe. We did a formal BAL. Thirty mL was recovered. The fluid will be sent for analysis. The patient tolerated the procedure well. The patient will be recovered. There was no immediate complication. MMODL / IJN: [id number] /
[2021-01-22 19:27] LABS: Appearance,BF Hazy; Color,BF Colorless; Nucleated Cells, Body Fluid 23 /uL; RBC, Body Fluid 5 /uL
[2021-01-22 19:29] LABS: Mononuclear WBC,Body Fluid 27 %; Polynuclear WBC,Body Fluid 73 %; Total Cells Counted,Body Fluid 100
== END 2021-01-22 12:09 | disposition home or self-care (01) ==
LOC: ORWHC2ENDO 10:04
PROVIDERS: ATTEND Internal Medicine Critical Care Medicine
DX: J47.9 Bronchiectasis, uncomplicated (principal); J39.8 Other specified diseases of upper respiratory tract; J98.09 Other diseases of bronchus, not elsewhere classified; I10 Essential (primary) hypertension; J44.9 Chronic obstructive pulmonary disease, unspecified; F41.9 Anxiety disorder, unspecified; K21.9 Gastro-esophageal reflux disease without esophagitis; Z82.49 Family history of ischemic heart disease and other diseases of the circulatory system; Z83.438 Family history of other disorder of lipoprotein metabolism and other lipidemia; Z87.891 Personal history of nicotine dependence; Z98.890 Other specified postprocedural states; Z97.2 Presence of dental prosthetic device (complete) (partial); Z79.1 Long term (current) use of non-steroidal anti-inflammatories (NSAID); Z79.51 Long term (current) use of inhaled steroids; Z79.52 Long term (current) use of systemic steroids; Z79.899 Other long term (current) drug therapy; Z88.1 Allergy status to other antibiotic agents; Z88.8 Allergy status to other drugs, medicaments and biological substances
CPT/HCPCS: 87798 ×3; 87496; 87498; 87529; 88108; 88305; 89050; 87252; 87502; 87634; 87070; 87205; 87116; 87102; 87206; 31624; J2001; J2250; J0461; J3010; J2704

== ENCOUNTER 2021-02-23 18:11 | Inpatient (IN) | payer MEDICARE ==
--- NOTE | 2021-02-23 19:04 | ED ---
SOB HPI - General Chief Complaint: Shortness of Breath Stated Complaint: RENEE Time Seen by Provider: 02/23/21 18:11 Source: patient, EMS, RN notes reviewed Mode of arrival: EMS Limitations: no limitations - History of Present Illness Initial Comments: 80-year-old male with history of COPD who states he had shortness of breath today with some chest pain. He uses home medication without much relief he did get a DuoNeb treatment and route by paramedics and did feel somewhat better afterward. Currently has no chest pain. No overt fevers MD Complaint: shortness of breath, cough - Related Data Home Medications Medication Instructions Recorded Confirmed ALPRAZolam [Xanax] 0.25 mg PO HS 08/22/13 01/21/21 amLODIPine [Norvasc] 5 mg PO BID 08/22/13 01/21/21 Benzonatate [Tessalon Perles] 200 mg PO TID 09/02/16 01/21/21 Formoterol Fumarate [Perforomist] 20 mcg INHALATION QAM 09/02/16 01/21/21 guaiFENesin [Mucinex] 600 mg PO BID 08/16/17 01/21/21 Spironolactone [Aldactone] 25 mg PO QAM 09/06/18 01/21/21 Tamsulosin [Flomax] 0.4 mg PO QAM 09/06/18 01/21/21 Famotidine [Pepcid] 20 mg PO DAILY PRN 01/05/19 01/21/21 Triamcinolone 0.1% Cream [Kenalog 1 applic TOPICAL DAILY 04/27/19 01/21/21 0.1% Cream] Melatonin 10 mg PO HS 09/24/19 01/21/21 Naproxen Sodium [Aleve] 440 mg PO DAILY PRN 09/24/19 01/21/21 Ipratropium-Albuterol Nebulize 3 ml INHALATION QID 05/09/20 01/21/21 [Duoneb 0.5 mg-3 mg/3 ml Soln] Ipratropium/Albuterol Sulfate 1 puff INHALATION QID PRN 05/15/20 01/21/21 [Combivent Respimat Inhaler] Budesonide [Pulmicort] 0.5 mg INHALATION BID 07/03/20 01/21/21 predniSONE 5 mg PO Q48H 08/25/20 01/21/21 Allergies Allergy/AdvReac Type Severity Reaction Status Date / Time levofloxacin [From Levaquin] AdvReac Swelling Verified 02/23/21 18:20 to fingers-states "OK to take Cipro" Review of Systems ROS Statement: Those systems with pertinent positive or pertinent negative responses have been documented in the HPI. ROS Other: All systems not noted in ROS Statement are negative. Past Medical History Past Medical History: COPD, GERD/Reflux, Hearing Disorder / Deafness, Hypert ension, Prostate Disorder Additional Past Medical History / Comment(s): HEART MURMUR. HAS TAKEN STEROIDS-for "years". " "WELDERS LUNG". "SEVERE Tracheomalacia & Bronch iectasis". BPH. Uses oxygen cont. @2 l. POOR HEARING. POOR EYE SITE (ADVERSE REACTION TO SOME OF HIS RESP MEDS, PER DAUGHTER, HONEY). Tracheal malasia History of Any Multi-Drug Resistant Organisms: ESBL Date of last positivie culture/infection: 04/06/18 MDRO Source:: esbl bronch Additional Past Surgical History / Comment(s): BRONCHOSCOPY . HX EGD, COLONOSCOPY; BENIGN LYMPH NODE REMOVED FROM NECK AGE 19. Past Anesthesia/Blood Transfusion Reactions: No Reported Reaction Past Psychological History: Anxiety Smoking Status: Former smoker Past Alcohol Use History: None Reported Past Drug Use History: None Reported - Past Family History Mother Family Medical History: CVA/TIA, Myocardial Infarction ([place]) Father Family Medical History: Deep Vein Thrombosis (DVT), Myocardial Infarction ([place]) General Exam - General Exam Comments Initial Comments: this is a well-developed well-nourished awake alert oriented 3 male Limitations: no limitations General appearance: alert, in no apparent distress Head exam: Present: atraumatic, normocephalic, normal inspection Eye exam: Present: normal appearance, PERRL, EOMI. Absent: scleral icterus, conjunctival injection, periorbital swelling ENT exam: Present: normal exam, mucous membranes moist Neck exam: Present: normal inspection, full ROM, other (No stridor JVD or bruits). Absent: tenderness, meningismus, lymphadenopathy Respiratory exam: Present: decreased breath sounds. Absent: respiratory distress, wheezes, rales, rhonchi, stridor Cardiovascular Exam: Present: regular rate, normal rhythm, normal heart sounds. Absent: systolic murmur, diastolic murmur, rubs, gallop, clicks GI/Abdominal exam: Present: soft, normal bowel sounds. Absent: distended, tenderness, guarding, rebound, rigid Extremities exam: Present: normal inspection, full ROM, normal capillary refill. Absent: tenderness, pedal edema, joint swelling, calf tenderness Back exam: Present: normal inspection Neurological exam: Present: alert, oriented X3, CN II-XII intact Psychiatric exam: Present: normal affect, normal mood Skin exam: Present: warm, dry, intact, normal color. Absent: rash Course Vital Signs 02/23/21 18:14 Temperature 99.2 F Pulse Rate 86 Respiratory 26 H Rate Blood Pressure 117/96 O2 Sat by Pulse 92 L Oximetry Medical Decision Making - Medical Decision Making I did a long discussion with patient family members later with Dr. Pal patient does present with complaints of shortness of breath consistent with COPD exacerbation as well as evidence of pneumonia. His abdomen fever Coumadin 19 testing negative for influenza testing negative. Patient still has very diminished breath sounds with wheezing. She'll be admitted for inpatient evaluation and treatment. - Lab Data Result diagrams: 02/23/21 19:13 02/23/21 19:13 Lab Results 02/23/21 02/23/21 02/23/21 Range/Units 19:13 19:13 19:13 WBC 15.1 H (3.8-10.6) k/uL RBC 4.95 (4.30-5.90) m/uL Hgb 15.2 (13.0-17.5) gm/dL Hct 44.7 (39.0-53.0) % MCV 90.3 (80.0-100.0) fL MCH 30.6 (25.0-35.0) pg MCHC 33.9 (31.0-37.0) g/dL RDW 15.0 (11.5-15.5) % Plt Count 217 (150-450) k/uL MPV 9.1 Neutrophils % 82 % Lymphocytes % 12 % Monocytes % 5 % Eosinophils % 1 % Basophils % 0 % Neutrophils # 12.3 H (1.3-7.7) k/uL Lymphocytes # 1.7 (1.0-4.8) k/uL Monocytes # 0.7 (0-1.0) k/uL Eosinophils # 0.1 (0-0.7) k/uL Basophils # 0.1 (0-0.2) k/uL PT 10.0 (9.0-12.0) sec INR 0.9 (<1.2) APTT 23.2 (22.0-30.0) sec D-Dimer 1.29 H (<0.60) mg/L FEU Sodium 139 (137-145) mmol/L Potassium 4.8 (3.5-5.1) mmol/L Chloride 105 (98-107) mmol/L Carbon Dioxide 22 (22-30) mmol/L Anion Gap 12 mmol/L BUN 21 H (9-20) mg/dL Creatinine 0.92 (0.66-1.25) mg/dL Est GFR (CKD-EPI)AfAm >90 (>60 ml/min/1.73 sqM) Est GFR (CKD-EPI)NonAf 78 (>60 ml/min/1.73 sqM) Glucose 127 H (74-99) mg/dL Plasma Lactic Acid Marcus (0.7-2.0) mmol/L Calcium 9.5 (8.4-10.2) mg/dL Magnesium 2.0 (1.6-2.3) mg/dL Total Bilirubin 1.1 (0.2-1.3) mg/dL AST 51 (17-59) U/L ALT 31 (4-49) U/L Alkaline Phosphatase 78 (38-126) U/L Troponin I (0.000-0.034) ng/mL NT-Pro-B Natriuret Pep pg/mL Total Protein 8.0 (6.3-8.2) g/dL Albumin 4.5 (3.5-5.0) g/dL Coronavirus (PCR) (Not Detectd) Influenza Type A RNA (Not Detectd) Influenza Type B (PCR) (Not Detectd) 02/23/21 02/23/21 02/23/21 Range/Units 19:13 19:13 19:13 WBC (3.8-10.6) k/uL RBC (4.30-5.90) m/uL Hgb (13.0-17.5) gm/dL Hct (39.0-53.0) % MCV (80.0-100.0) fL MCH (25.0-35.0) pg MCHC (31.0-37.0) g/dL RDW (11.5-15.5) % Plt Count (150-450) k/uL MPV Neutrophils % % Lymphocytes % % Monocytes % % Eosinophils % % Basophils % % Neutrophils # (1.3-7.7) k/uL Lymphocytes # (1.0-4.8) k/uL Monocytes # (0-1.0) k/uL Eosinophils # (0-0.7) k/uL Basophils # (0-0.2) k/uL PT (9.0-12.0) sec INR (<1.2) APTT (22.0-30.0) sec D-Dimer (<0.60) mg/L FEU Sodium (137-145) mmol/L Potassium (3.5-5.1) mmol/L Chloride (98-107) mmol/L Carbon Dioxide (22-30) mmol/L Anion Gap mmol/L BUN (9-20) mg/dL Creatinine (0.66-1.25) mg/dL Est GFR (CKD-EPI)AfAm (>60 ml/min/1.73 sqM) Est GFR (CKD-EPI)NonAf (>60 ml/min/1.73 sqM) Glucose (74-99) mg/dL Plasma Lactic Acid Marcus 2.0 (0.7-2.0) mmol/L Calcium (8.4-10.2) mg/dL Magnesium (1.6-2.3) mg/dL Total Bilirubin (0.2-1.3) mg/dL AST (17-59) U/L ALT (4-49) U/L Alkaline Phosphatase (38-126) U/L Troponin I 0.032 (0.000-0.034) ng/mL NT-Pro-B Natriuret Pep 373 pg/mL Total Protein (6.3-8.2) g/dL Albumin (3.5-5.0) g/dL Coronavirus (PCR) (Not Detectd) Influenza Type A RNA (Not Detectd) Influenza Type B (PCR) (Not Detectd) 02/23/21 02/23/21 Range/Units 20:35 20:35 WBC (3.8-10.6) k/uL RBC (4.30-5.90) m/uL Hgb (13.0-17.5) gm/dL Hct (39.0-53.0) % MCV (80.0-100.0) fL MCH (25.0-35.0) pg MCHC (31.0-37.0) g/dL RDW (11.5-15.5) % Plt Count (150-450) k/uL MPV Neutrophils % % Lymphocytes % % Monocytes % % Eosinophils % % Basophils % % Neutrophils # (1.3-7.7) k/uL Lymphocytes # (1.0-4.8) k/uL Monocytes # (0-1.0) k/uL Eosinophils # (0-0.7) k/uL Basophils # (0-0.2) k/uL PT (9.0-12.0) sec INR (<1.2) APTT (22.0-30.0) sec D-Dimer (<0.60) mg/L FEU Sodium (137-145) mmol/L Potassium (3.5-5.1) mmol/L Chloride (98-107) mmol/L Carbon Dioxide (22-30) mmol/L Anion Gap mmol/L BUN (9-20) mg/dL Creatinine (0.66-1.25) mg/dL Est GFR (CKD-EPI)AfAm (>60 ml/min/1.73 sqM) Est GFR (CKD-EPI)NonAf (>60 ml/min/1.73 sqM) Glucose (74-99) mg/dL Plasma Lactic Acid Marcus (0.7-2.0) mmol/L Calcium (8.4-10.2) mg/dL Magnesium (1.6-2.3) mg/dL Total Bilirubin (0.2-1.3) mg/dL AST (17-59) U/L ALT (4-49) U/L Alkaline Phosphatase (38-126) U/L Troponin I (0.000-0.034) ng/mL NT-Pro-B Natriuret Pep pg/mL Total Protein (6.3-8.2) g/dL Albumin (3.5-5.0) g/dL Coronavirus (PCR) Not Detected (Not Detectd) Influenza Type A RNA Not Detected (Not Detectd) Influenza Type B (PCR) Not Detected (Not Detectd) - EKG Data -: EKG Interpreted by Me EKG Comments: Sinus rhythm with PACs rate 72. We'll 150 QRS duration 100 daily since QTC 420/459) disease pattern with anterior fascicular block non specific ST-T wave configuration PVCs noted - Radiology Data Radiology results: report reviewed, image reviewed (Imaging reviewed no evidence of PE there is evidence of posterior and lower lobe atelectasis suspicious for infiltrate see complete report) Critical Care Time Critical Care Time: Yes Total Critical Care Time: 31 Critical Care Time: Critical care time includes initial presentation with history physical labs x- rays multiple reevaluation the patient responsive therapy discuss with the patient family discuss with the admitting physician admission orders and documentation the above Disposition Clinical Impression: Bilateral pneumonia, COPD with exacerbation, Febrile illness, acute, Dehydration Disposition: ADMITTED IP TO THIS [facility] Condition: Fair Referrals: Erik aPl MD [Primary Care Provider] - 1-2 days
[2021-02-23 19:33] LABS: Basophils # (A) 0.1 k/uL (0-0.2); Basophils % (A) 0 %; Eosinophils # (A) 0.1 k/uL (0-0.7); Eosinophils % (A) 1 %; HCT 44.7 % (39.0-53.0); HGB 15.2 gm/dL (13.0-17.5); Lymphocytes # (A) 1.7 k/uL (1.0-4.8); Lymphocytes % (A) 12 %; MCH 30.6 pg (25.0-35.0); MCHC 33.9 g/dL (31.0-37.0); MCV 90.3 fL (80.0-100.0); Mean Platelet Volume 9.1; Monocytes # (A) 0.7 k/uL (0-1.0); Monocytes % (A) 5 %; Neutrophils # (A) 12.3 k/uL (1.3-7.7); Neutrophils % (A) 82 %; Platelet Count 217 k/uL (150-450); RBC 4.95 m/uL (4.30-5.90); WBC 15.1 k/uL (3.8-10.6)
[2021-02-23 19:43] LABS: INR 0.9 (<1.2); Partial Thromboplastin Time 23.2 sec (22.0-30.0)
--- NOTE | 2021-02-23 19:45 | XR ---
EXAMINATION TYPE: XR chest 2V DATE OF EXAM: 02/23/2021 COMPARISON: 12/15/2019 HISTORY: Difficulty breathing TECHNIQUE: 2 views FINDINGS: Heart is normal. Lungs are clear. Costophrenic angles are clear. There are chest leads. Tho racic aorta is atheromatous. There are chest leads. IMPRESSION: No active cardiopulmonary disease. There is improvement in the patchy atelectasis compare d to old exam.
[2021-02-23 19:46] LABS: ALT 31 U/L (4-49); AST 51 U/L (17-59); African American GFR (CKD) >90 (>60 ml/min/1.73 sqM); Albumin 4.5 g/dL (3.5-5.0); Alkaline Phosphatase 78 U/L (38-126); Anion Gap 12 mmol/L; Blood Urea Nitrogen 21 mg/dL (9-20); Calcium 9.5 mg/dL (8.4-10.2); Carbon Dioxide 22 mmol/L (22-30); Chloride 105 mmol/L (98-107); Glucose 127 mg/dL (74-99); Non-African American GFR(CKD) 78 (>60 ml/min/1.73 sqM); Sodium 139 mmol/L (137-145); Total Bilirubin 1.1 mg/dL (0.2-1.3)
[2021-02-23 19:53] LABS: Potassium 4.8 mmol/L (3.5-5.1)
--- NOTE | 2021-02-23 21:19 | CT ---
EXAMINATION TYPE: CT angio chest DATE OF EXAM: 02/23/2021 COMPARISON: None HISTORY: cough, elevated d-dimer, SOB CT DLP: 398.6 mGycm Automated exposure control for dose reduction was used. CONTRAST: Performed with IV Contrast, patient injected with 100 mL of Isovue 370. Images obtained from the thoracic inlet to the diaphragm with IV contrast. There are 3-D post process ed images. There is some patchy atelectasis at the lung bases bilaterally. There is no pleural effusion. Heart s ize is normal. There is no pericardial effusion. There are no hilar masses. There are large pulmonary arteries. There is no evidence of filling defect in the pulmonary arteries. There are no hilar polina s. There is no mediastinal adenopathy. Thoracic aorta is atheromatous. The bony thorax is intact. The re is degenerative spur formation in the thoracic spine. Sternum is intact. IMPRESSION: No evidence of pulmonary embolism. Large pulmonary arteries suggestive of some pulmonary hypertension . Patchy atelectasis in the mid and lower lung robert bilaterally.
[2021-02-23] MEDS ORDERED: AZITHROMYCIN 500 MG in SODIUM CHLORIDE 0.9% 250 ML IVPB STA (22:57)
[2021-02-23] MEDS ORDERED: PNEUMONIA PROTOCOL UTILIZED 1 EACH MISC PO PRN (22:57)
[2021-02-23] MEDS ORDERED: FAMOTIDINE 20 MG TAB PO PRN (22:59)
[2021-02-23] MEDS ORDERED: NAPROXEN 250 MG TAB PO PRN (22:59)
[2021-02-23] MEDS: SODIUM CHLORIDE 0.9% 1,000 ML IV SCH (23:29)
[2021-02-23] MEDS ORDERED: ZOLPIDEM 5 MG TAB PO STA (23:32)
[2021-02-23] MEDS: IPRATROPIUM-ALBUTEROL 3 ML NEB INHALATION SCH (23:48)
[2021-02-24] MEDS: methylPREDNISolone SOD SUCCI 125 MG/2 ML VIAL IV SCH ×4 (00:31→17:14)
[2021-02-24] MEDS: IPRATROPIUM-ALBUTEROL 3 ML NEB INHALATION SCH ×5 (03:39→21:46)
[2021-02-24] MEDS: FORMOTEROL FUMARATE 20 MCG/2 ML NEBU INHALATION SCH (08:04)
--- NOTE | 2021-02-24 08:16 | XR ---
EXAMINATION TYPE: XR chest 2V DATE OF EXAM: 02/24/2021 COMPARISON: 02/23/2021 TECHNIQUE: PA and lateral views submitted. HISTORY: Cough FINDINGS: The heart is enlarged and there is atherosclerotic change aorta. Upper mediastinum is prominent but l ikely positional. Subsegmental areas of patchy infiltrate bilaterally with tiny right effusion. No pn eumothorax. Pulmonary arteries prominent size correlate for permanent arterial hypertension. Degenera tive changes spine. Suggestion of surgical clip in the abdomen. IMPRESSION: 1. Cardiomegaly, correlate for COPD and patchy bilateral infiltrates. Findings stable.
[2021-02-24] MEDS: BENZONATATE 100 MG CAP PO SCH ×3 (09:58→21:20)
[2021-02-24] MEDS: TAMSULOSIN 0.4 MG CAP.ER.24H PO SCH (09:58)
[2021-02-24] MEDS: guaiFENesin 600 MG TABLET.ER PO SCH ×2 (09:58→21:20)
[2021-02-24] MEDS: SODIUM CHLORIDE 0.9% 1,000 ML IV SCH ×2 (09:58→20:36)
[2021-02-24] MEDS: amLODIPine 5 MG TAB PO SCH ×2 (09:58→21:20)
[2021-02-24] MEDS: AZITHROMYCIN 500 MG TAB PO SCH (09:58)
[2021-02-24] MEDS: SPIRONOLACTONE 25 MG TAB PO SCH (09:59)
[2021-02-24 12:22] LABS: Glucose,Whole Blood 168 mg/dL (75-99)
[2021-02-24] MEDS: INSULIN ASPART (NovoLOG) 100 UNIT/ML VIAL SQ SCH ×3 (13:24→22:15)
--- NOTE | 2021-02-24 13:34 | P.CNPUL ---
History of Present Illness Consult date: 02/24/21 Requesting physician: Erik Pal Reason for consult: dyspnea, abnormal CXR/CT Chief complaint: Shortness of breath, cough, congestion History of present illness: This is an 80-year-old gentleman with a history of hypertension, anxiety, gastroesophageal reflux disease, prostate disorder. He also has a history of severe tracheobronchomalacia and follows with Dr. Griggs in our office for the same. His last bronchoscopy with BAL was 01/22/2021. Surgical scar revealed no growth. He presented to the emergency room yesterday with complaints of increasing shortness of breath, cough and congestion. X-ray revealed evidence of COPD with patchy bilateral infiltrates. He is seen today in consultation in the emergency department. He is currently sitting up. Having lunch. Breathing a bit easier today compared to yesterday. CT angiogram ruled out pulmonary embolism. He was some evidence of pulmonary hypertension. There is patchy atelectasis in the mid and lower lung robert bilaterally. White count 15.1. Hemoglobin 15.2. D-dimer 1.29. Sodium 139. Potassium 4.8. Creatinine 0.92. Glucose 161. Troponin 0.032. ProBNP 373. Duarte virus not detected. Influenza screen negative. He's been initiated on DuoNeb inhalations, ceftriaxone and azithromycin, IV Solu-Medrol. Review of Systems REVIEW OF SYSTEMS: CONSTITUTIONAL: Denies any recent significant weight loss or weight gain. EYES: Denies change in vision. EARS, NOSE, MOUTH, THROAT: Denies headaches, denies sore throat. CARDIOVASCULAR: Denies chest pain, palpitations or syncopal episodes. RESPIRATORY: Positive for shortness of breath, cough, congestion no hemoptysis. GASTROINTESTINAL: Denies change in appetite, denies abdominal pain GENITOURINARY: Denies hematuria, denies infections. MUSKULOSKELETAL: Denies pain, denies swelling. INTEGUMENTARY: Denies rash, denies eczema. NEUROLOGICAL: Denies recent memory loss, no recent seizure activity. PSYCHIATRIC: Denies anxiety, denies depression. HEMATOLOGIC/LYMPHATIC: Denies anemia, denies enlarged lymph nodes. Past Medical History Past Medical History: COPD, GERD/Reflux, Hearing Disorder / Deafness, Hypertension, Prostate Disorder Additional Past Medical History / Comment(s): HEART MURMUR. HAS TAKEN STEROIDS-for "years". " "WELDERS LUNG". "SEVERE Tracheomalacia & Bronchiectasis". BPH. Uses oxygen cont. @2 l. POOR HEARING. POOR EYE SITE (ADVERSE REACTION TO SOME OF HIS RESP MEDS, PER DAUGHTER, HONEY). Tracheal malasia History of Any Multi-Drug Resistant Organisms: ESBL Date of last positivie culture/infection: 04/06/18 MDRO Source:: esbl bronch Additional Past Surgical History / Comment(s): BRONCHOSCOPY . HX EGD, COLONOSCOPY; BENIGN LYMPH NODE REMOVED FROM NECK AGE 19. Past Anesthesia/Blood Transfusion Reactions: No Reported Reaction Past Psychological History: Anxiety Smoking Status: Former smoker Past Alcohol Use History: None Reported Past Drug Use History: None Reported - Past Family History Mother Family Medical History: CVA/TIA, Myocardial Infarction (SD) Father Family Medical History: Deep Vein Thrombosis (DVT), Myocardial Infarction (SD) Medications and Allergies Home Medications Medication Instructions Recorded Confirmed Type ALPRAZolam [Xanax] 0.25 mg PO QID 08/22/13 02/23/21 History amLODIPine [Norvasc] 5 mg PO BID 08/22/13 02/23/21 History Benzonatate [Tessalon Perles] 200 mg PO TID 09/02/16 02/23/21 History Formoterol Fumarate [Perforomist] 20 mcg INHALATION RT-BID 09/02/16 02/23/21 History guaiFENesin [Mucinex] 600 mg PO BID 08/16/17 02/23/21 History Spironolactone [Aldactone] 25 mg PO DAILY 09/06/18 02/23/21 History Tamsulosin [Flomax] 0.4 mg PO DAILY 09/06/18 02/23/21 History Melatonin 10 mg PO HS 09/24/19 02/23/21 History Naproxen Sodium [Aleve] 220 mg PO BID PRN 09/24/19 02/23/21 History Ipratropium-Albuterol Nebulize 3 ml INHALATION RT-QID 05/09/20 02/23/21 History [Duoneb 0.5 mg-3 mg/3 ml Soln] Ipratropium/Albuterol Sulfate 1 puff INHALATION RT-QID PRN 05/15/20 02/23/21 History [Combivent Respimat Inhaler] Budesonide [Pulmicort] 0.5 mg INHALATION RT-QID 07/03/20 02/23/21 History predniSONE 5 mg PO Q48H 08/25/20 02/23/21 History Azithromycin 250 mg PO MOWEFR 02/23/21 02/23/21 History Allergies Allergy/AdvReac Type Severity Reaction Status Date / Time levofloxacin [From Levaquin] AdvReac Swelling Verified 02/23/21 23:09 to fingers-states "OK to take Cipro" Physical Exam Vitals: Vital Signs Temp Pulse Pulse Resp BP BP Pulse Ox 02/24/21 12:36 76 02/24/21 12:22 74 02/24/21 10:01 98 F 83 24 145/94 94 L 02/24/21 08:30 90 02/24/21 08:16 84 02/24/21 08:15 84 02/24/21 08:06 72 02/24/21 06:00 74 28 H 167/98 93 L 02/24/21 04:00 22 124/68 02/24/21 03:51 85 02/24/21 03:44 79 02/24/21 02:00 90 L 02/24/21 00:38 90 L 02/23/21 23:57 80 02/23/21 23:48 78 93 L 02/23/21 23:30 79 22 162/96 94 L 02/23/21 23:00 98.6 F 74 24 139/68 93 L 02/23/21 22:30 62 20 172/96 95 02/23/21 22:00 70 24 144/73 93 L 02/23/21 21:00 61 20 129/46 94 L 02/23/21 20:30 59 L 22 130/114 95 02/23/21 20:00 73 22 160/97 95 02/23/21 19:30 73 20 178/110 95 02/23/21 19:00 63 20 129/97 95 02/23/21 18:14 99.2 F 86 26 H 117/96 92 L Intake and Output 02/23/21 02/24/21 02/24/21 22:59 06:59 14:59 Other: Weight 88.904 kg GENERAL EXAM: Alert, pleasant 80-year-old gentleman, on 2 L nasal cannula, fairly comfortable in no apparent distress. HEAD: Normocephalic. EYES: Normal reaction of pupils, equal size. NOSE: Clear with pink turbinates. THROAT: No erythema or exudates. NECK: No masses, no JVD. CHEST: No chest wall deformity. LUNGS: Equal air entry with bilateral scattered rhonchi CVS: S1 and S2 normal with no audible murmur, regular rhythm. ABDOMEN: No hepatosplenomegaly, normal bowel sounds, no guarding or rigidity. SPINE: No scoliosis or deformity SKIN: No rashes CENTRAL NERVOUS SYSTEM: No focal deficits, tone is normal in all 4 extremities. EXTREMITIES: There is no peripheral edema. No clubbing, no cyanosis. Peripheral pulses are intact. Results - Laboratory Findings CBC and BMP: 02/23/21 19:13 02/23/21 19:13 PT/INR, D-dimer PT 10.0 sec (9.0-12.0) 02/23/21 19:13 INR 0.9 (<1.2) 02/23/21 19:13 D-Dimer 1.29 mg/L FEU (<0.60) H 02/23/21 19:13 Abnormal lab findings: Abnormal Labs 02/23/21 02/23/21 02/23/21 19:13 19:13 19:13 WBC 15.1 H Neutrophils # 12.3 H D-Dimer 1.29 H BUN 21 H Glucose 127 H POC Glucose (mg/dL) 02/24/21 12:20 WBC Neutrophils # D-Dimer BUN Glucose POC Glucose (mg/dL) 168 H - Diagnostic Findings Chest x-ray: image reviewed CT scan - chest: image reviewed Assessment and Plan Assessment: 1 Acute hypoxemic respiratory failure secondary to suspected acute community- acquired pneumonia 2 Severe tracheobronchomalacia, most recent bronchoscopy with BAL 01/22/2021, cultures reveal no growth 3 Chronic obstructive pulmonary disease 4 Hypertension 5 History of previous ESBL 6 BPH 7 Hearing disorder 8 Former smoker Plan: The patient was seen and evaluated by Dr. Linda Chest x-ray, CAT scans and labs reviewed Continue antibiotics and check pro calcitonin Continue bronchodilators, IV Solu-Medrol Titrate the FiO2 as tolerated We will continue to follow and make further recommendations based on his clinical status I, the cosigning physician, performed a history & physical examination of the patient. Lungs sounds bilateral scattered rhonchi. Maintaining good O2 saturations in the 90s on 2 L/m per nasal cannula. I discussed the assessment and plan of care with my nurse practitioner, Sangeeta Thornton. I attest to the above consultation as dictated by her. Time with Patient: Greater than 30
--- NOTE | 2021-02-24 14:51 | P.HPIM ---
History of Present Illness H&P Date: 02/24/21 HISTORY OF PRESENT ILLNESS This is an 80-year-old male patient of Dr. Pal and Dr. Griggs with past medical history of COPD, severe tracheobronchial malacia, hypertension, gastroesophageal reflux disease, benign prostatic hypertrophy, generalized anxiety disorder, chronic hypoxic respiratory failure on home O2 at 2 L nasal cannula, remote history of tobacco use. Patient presented with shortness of breath and cough. His last bronchoscopy was one month ago. WBC 15.1. D-dimer 1.29. Creatinine 0.92. Blood sugar 127. Magnesium 2.0. Liver function tests negative. Troponin 0.032. proBNP 373. Rotavirus PCR not detected. Influenza A, influenza B not detected. Chest x-ray reveals no active cardiac pulmonary disease. Improvement in the patchy atelectasis compared to old exam. CT angiogram of the chest was negative for pulmonary embolism. Large pulmonary artery suggestive some pulmonary hypertension. Patchy atelectasis of the lower lung robert bilaterally. Repeat chest x-ray reveals findings stable. Patient is seen today in the emergency center waiting for a bed on the [facility] floor, patient started on DuoNeb treatments, antibiotics, Solu-Medrol, pulmonary consult. REVIEW OF SYSTEMS Constitutional: No fever, no chills, no night sweats. No weight change. No weakness, fatigue or lethargy. No daytime sleepiness. EENT: No headache. No blurred vision or double vision, no loss of vision. No loss of Hearing, no ringing in the ears, no dizziness. No nasal drainage or congestion. No epistaxis. No sore throat. Lungs: No shortness of breath, cough, no sputum production. No wheezing. Cardiovascular: No chest pain, no lower extremity edema. No palpitations. No paroxysmal nocturnal dyspnea. No orthopnea. No lightheadedness or dizziness. No syncopal episodes. Abdominal: No abdominal pain. No nausea, vomiting. No diarrhea. No constipation. No bloody or tarry stools. No loss of appetite. Genitourinary: No dysuria, increased frequency, urgency. No urinary retention. Musculoskeletal: No myalgias. No muscle weakness, no gait dysfunction, no frequent falls. No back pain. No neck pain. Integumentary: No wounds, no lesions. No rash or pruritus. No unusual br uising. No change in hair or nails. Neurologic: No aphasia. No facial droop. No change in mentation. No head injury. No headache. No paralysis. No paresthesia. Psychiatric: No depression. No anxiety. No mood swings. Endocrine: No abnormal blood sugars. No weight change. No excessive sweating or thirst. No cold intolerance. SOCIAL HISTORY Patient was a smoker one pack per day for more than 40 years and quit 8 years ago. He denies any alcohol, marijuana or illicit drug use. He does have home oxygen therapy. FAMILY HISTORY Mother at age 76 from CVA. Father at age 61 from coronary artery disease. Patient has one sister and she at 71 from a brain aneurysm. Patient has one daughter.. PHYSICAL EXAMINATION Gen: This is an 80 year old male patient, resting on the ears stretcher and appears to be in no acute distress. HEENT: Head is atraumatic, normocephalic. Pupils equal, round. Sclerae is anicteric. NECK: Supple. No JVD. No lymphadenopathy. No thyromegaly. LUNGS: Scattered rhonchi. No intercostal retractions. HEART: Regular rate and rhythm. No murmur. ABDOMEN: Soft. Bowel sounds are present. No masses. No tenderness. EXTREMITIES: No pedal edema. No calf tenderness. NEUROLOGICAL: Patient is awake, alert and oriented x3. Cranial nerves 2 through 12 are grossly intact. ASSESSMENT AND PLAN 1. Acute on chronic hypoxic respiratory failure secondary to am negative pneumonia. Patient has been started on DuoNeb treatments every 4 hours, azithromycin 500 mg daily, ceftriaxone 2 g daily, Tessalon Perles 200 mg 3 times daily, Perforomist daily, Solu-Medrol 60 mg IV every 6 hours. 2. Severe tracheobronchial malacia followed closely by Dr. Griggs with frequent bronchoscopies. 3. COPD with acute exacerbation. Continue Solu-Medrol 60 mg IV every 6 hours. Continue as in #1 4. Hypertension. Continue Norvasc 5 mg twice daily, Aldactone 25 mg daily 5. Generalized anxiety disorder. Continue Xanax or 0.5 mg at bedtime. 6. Benign prostatic hypertrophy. Continue tamsulosin 0.4 mg daily. 7. Gastroesophageal reflux disease. Protonix daily. 8. DVT prophylaxis. Heparin subcu. 9. COVID-19 testing negative. Patient has been hospitalized during a pandemic. Patient will be admitted to the hospital for a minimum of 2 night stay. DISCHARGE PLAN To be determined. Most likely return home. Impression and plan of care have been directed as dictated by the signing physician. Chrissy Orona nurse practitioner acting as scribe for signing physician. Past Medical History Past Medical History: COPD, GERD/Reflux, Hearing Disorder / Deafness, Hypertension, Prostate Disorder Additional Past Medical History / Comment(s): HEART MURMUR. HAS TAKEN STEROIDS-for "years". " "WELDERS LUNG". "SEVERE Tracheomalacia & Bronchiectasis". BPH. Uses oxygen cont. @2 l. POOR HEARING. POOR EYE SITE (ADVERSE REACTION TO SOME OF HIS RESP MEDS, PER DAUGHTER, HONEY). Tracheal malasia History of Any Multi-Drug Resistant Organisms: ESBL Date of last positivie culture/infection: 04/06/18 MDRO Source:: esbl bronch Additional Past Surgical History / Comment(s): BRONCHOSCOPY . HX EGD, COLONOSCOPY; BENIGN LYMPH NODE REMOVED FROM NECK AGE 19. Past Anesthesia/Blood Transfusion Reactions: No Reported Reaction Past Psychological History: Anxiety Smoking Status: Former smoker Past Alcohol Use History: None Reported Past Drug Use History: None Reported - Past Family History Mother Family Medical History: CVA/TIA, Myocardial Infarction (OR) Father Family Medical History: Deep Vein Thrombosis (DVT), Myocardial Infarction (OR) Medications and Allergies Home Medications Medication Instructions Recorded Confirmed Type ALPRAZolam [Xanax] 0.25 mg PO QID 08/22/13 02/23/21 History amLODIPine [Norvasc] 5 mg PO BID 08/22/13 02/23/21 History Benzonatate [Tessalon Perles] 200 mg PO TID 09/02/16 02/23/21 History Formoterol Fumarate [Perforomist] 20 mcg INHALATION RT-BID 09/02/16 02/23/21 History guaiFENesin [Mucinex] 600 mg PO BID 08/16/17 02/23/21 History Spironolactone [Aldactone] 25 mg PO DAILY 09/06/18 02/23/21 History Tamsulosin [Flomax] 0.4 mg PO DAILY 09/06/18 02/23/21 History Melatonin 10 mg PO HS 09/24/19 02/23/21 History Naproxen Sodium [Aleve] 220 mg PO BID PRN 09/24/19 02/23/21 History Ipratropium-Albuterol Nebulize 3 ml INHALATION RT-QID 05/09/20 02/23/21 History [Duoneb 0.5 mg-3 mg/3 ml Soln] Ipratropium/Albuterol Sulfate 1 puff INHALATION RT-QID PRN 05/15/20 02/23/21 History [Combivent Respimat Inhaler] Budesonide [Pulmicort] 0.5 mg INHALATION RT-QID 07/03/20 02/23/21 History predniSONE 5 mg PO Q48H 08/25/20 02/23/21 History Azithromycin 250 mg PO MOWEFR 02/23/21 02/23/21 History Allergies Allergy/AdvReac Type Severity Reaction Status Date / Time levofloxacin [From [facility]] AdvReac Swelling Verified 02/23/21 23:09 to fingers-states "OK to take Cipro" Physical Exam Vitals: Vital Signs Temp Pulse Resp BP Pulse Ox 02/24/21 08:30 90 02/24/21 08:16 84 02/24/21 08:15 84 02/24/21 08:06 72 02/24/21 06:00 74 28 H 167/98 93 L 02/24/21 04:00 22 124/68 02/24/21 03:51 85 02/24/21 03:44 79 02/24/21 02:00 90 L 02/24/21 00:38 90 L 02/23/21 23:57 80 02/23/21 23:48 78 93 L 02/23/21 23:30 79 22 162/96 94 L 02/23/21 23:00 98.6 F 74 24 139/68 93 L 02/23/21 22:30 62 20 172/96 95 02/23/21 22:00 70 24 144/73 93 L 02/23/21 21:00 61 20 129/46 94 L 02/23/21 20:30 59 L 22 130/114 95 02/23/21 20:00 73 22 160/97 95 02/23/21 19:30 73 20 178/110 95 02/23/21 19:00 63 20 129/97 95 02/23/21 18:14 99.2 F 86 26 H 117/96 92 L Intake and Output 02/23/21 02/24/21 02/24/21 22:59 06:59 14:59 Other: Weight 88.904 kg Results CBC & Chem 7: 02/23/21 19:13 02/23/21 19:13 Labs: Abnormal Lab Results - Last 24 Hours (Table) 02/23/21 02/23/21 02/23/21 Range/Units 19:13 19:13 19:13 WBC 15.1 H (3.8-10.6) k/uL Neutrophils # 12.3 H (1.3-7.7) k/uL D-Dimer 1.29 H (<0.60) mg/L FEU BUN 21 H (9-20) mg/dL Glucose 127 H (74-99) mg/dL
[2021-02-24 17:08] LABS: Glucose,Whole Blood 125 mg/dL (75-99)
[2021-02-24] MEDS ORDERED: ALPRAZolam 0.25 MG TAB PO SCH (21:00)
[2021-02-24] MEDS: MELATONIN 5 MG TABLET PO SCH (21:20)
[2021-02-24 21:35] LABS: Glucose,Whole Blood 157 mg/dL (75-99)
[2021-02-24] MEDS: BUDESONIDE 1 MG/2 ML NEBU INHALATION SCH (21:46)
[2021-02-25] MEDS: IPRATROPIUM-ALBUTEROL 3 ML NEB INHALATION SCH ×7 (00:55→23:14)
[2021-02-25] MEDS: methylPREDNISolone SOD SUCCI 125 MG/2 ML VIAL IV SCH ×4 (01:08→19:21)
[2021-02-25] MEDS: SODIUM CHLORIDE 0.9% 1,000 ML IV SCH ×2 (05:10→19:22)
[2021-02-25 07:12] LABS: Glucose,Whole Blood 428 mg/dL (75-99)
[2021-02-25] MEDS ORDERED: INSULIN ASPART (NovoLOG) 100 UNIT/ML VIAL SQ ONE (07:30)
[2021-02-25] MEDS: SPIRONOLACTONE 25 MG TAB PO SCH (07:38)
[2021-02-25] MEDS: guaiFENesin 600 MG TABLET.ER PO SCH ×2 (07:38→21:59)
[2021-02-25] MEDS: amLODIPine 5 MG TAB PO SCH ×2 (07:38→21:59)
[2021-02-25] MEDS: TAMSULOSIN 0.4 MG CAP.ER.24H PO SCH (07:38)
[2021-02-25] MEDS: BENZONATATE 100 MG CAP PO SCH ×3 (07:38→21:58)
[2021-02-25] MEDS: FORMOTEROL FUMARATE 20 MCG/2 ML NEBU INHALATION SCH (08:20)
[2021-02-25] MEDS: BUDESONIDE 1 MG/2 ML NEBU INHALATION SCH ×2 (08:20→19:22)
[2021-02-25] MEDS: ALPRAZolam 0.25 MG TAB PO PRN ×2 (08:40→21:58)
[2021-02-25 09:39] LABS: Glucose,Whole Blood 150 mg/dL (75-99)
[2021-02-25] MEDS: AZITHROMYCIN 500 MG TAB PO SCH (09:41)
[2021-02-25] MEDS: INSULIN ASPART (NovoLOG) 100 UNIT/ML VIAL SQ SCH ×4 (09:41→21:44)
--- NOTE | 2021-02-25 11:14 | P.PN ---
Subjective Progress Note Date: 02/25/21 Principal diagnosis: Shortness of breath, cough, congestion, pneumonia This is an 80-year-old gentleman with a history of hypertension, anxiety, gastroesophageal reflux disease, prostate disorder. He also has a history of severe tracheobronchomalacia and follows with Dr. Griggs in our office for the same. His last bronchoscopy with BAL was 01/22/2021. Surgical scar revealed no growth. He presented to the emergency room yesterday with complaints of increasing shortness of breath, cough and congestion. X-ray revealed evidence of COPD with patchy bilateral infiltrates. He is seen today in consultation in the emergency department. He is currently sitting up. Having lunch. Breathing a bit easier today compared to yesterday. CT angiogram ruled out pulmonary embolism. He was some evidence of pulmonary hypertension. There is patchy atelectasis in the mid and lower lung robert bilaterally. White count 15.1. Hemoglobin 15.2. D-dimer 1.29. Sodium 139. Potassium 4.8. Creatinine 0.92. Glucose 161. Troponin 0.032. ProBNP 373. Daurte virus not detected. Influenza screen negative. He's been initiated on DuoNeb inhalations, ceftriaxone and azithromycin, IV Solu-Medrol. On 02/25/2021 patient seen in follow-up on medical surgical floor. He is awake and alert, in no acute distress, he is currently on 2 L of oxygen pulse ox is 96%, he is a nonproductive cough, has had no fever or chills overnight, remains on Solu-Medrol 60 mg every 6 hours, and a combination of antibiotics of azithromycin and Rocephin, in addition to Pulmicort, Perforomist and DuoNeb. No hemoptysis, no complaints of chest pain. His pro calcitonin level came back at 0.26. He tested negative for influenza A and B and coronavirus. Objective - Vital Signs Vital signs: Vital Signs Temp 98 F 02/25/21 08:00 Pulse 94 02/25/21 08:41 Resp 16 02/25/21 08:00 BP 163/77 02/25/21 08:00 Pulse Ox 94 L 02/25/21 08:00 Intake & Output 02/24/21 02/25/21 02/25/21 18:59 06:59 18:59 Intake Total 600 Output Total 900 Balance -300 Weight 88.904 kg Intake: Intake, IV Titration 600 Amount cefTRIAXone 2 gm In 600 Sodium Chloride 0.9% 50 ml @ 100 mls/hr IVPB ONCE STA Rx#:[id number] Output: Urine 900 Other: Voiding Method Urinal Urinal Urinal Incontinent Incontinent Incontinent # Voids 2 1 2 # Bowel Movements 1 0 0 - Exam GENERAL EXAM: Alert, very pleasant, 80-year-old white male 2 L of oxygen and the pulse ox of 94-96% comfortable in no apparent distress. HEAD: Normocephalic/atraumatic. EYES: Normal reaction of pupils, equal size. Conjunctiva pink, sclera white. NOSE: Clear with pink turbinates. THROAT: No erythema or exudates. NECK: No masses, no JVD, no thyroid enlargement, no adenopathy. CHEST: No chest wall deformity. Symmetrical expansion. LUNGS: Equal air entry with a few scattered rhonchi, and diminished breath sounds bilaterally CVS: Regular rate and rhythm, normal S1 and S2, no gallops, no murmurs, no rubs ABDOMEN: Soft, nontender. No hepatosplenomegaly, normal bowel sounds, no guarding or rigidity. EXTREMITIES: No clubbing, no edema, no cyanosis, 2+ pulses and upper and lower extremities. MUSCULOSKELETAL: Muscle strength and tone normal. SPINE: No scoliosis or deformity SKIN: No rashes CENTRAL NERVOUS SYSTEM: Alert and oriented -3. No focal deficits, tone is normal in all 4 extremities. PSYCHIATRIC: Alert and oriented -3. Appropriate affect. Intact judgment and insight. - Labs CBC & Chem 7: 02/23/21 19:13 02/23/21 19:13 Labs: Abnormal Lab Results - Last 24 Hours (Table) 02/24/21 02/24/21 02/24/21 Range/Units 12:20 17:06 17:12 POC Glucose (mg/dL) 168 H 125 H (75-99) mg/dL Procalcitonin 0.26 H (0.02-0.09) ng/mL 02/24/21 02/25/21 02/25/21 Range/Units 21:33 07:11 09:37 POC Glucose (mg/dL) 157 H 428 H 150 H (75-99) mg/dL Procalcitonin (0.02-0.09) ng/mL Microbiology - Last 24 Hours (Table) 02/23/21 23:15 Blood Culture - Preliminary Blood No Growth after 24 hours 02/23/21 23:00 Blood Culture - Preliminary Blood No Growth after 24 hours Assessment and Plan Plan: Assessment: #1. Acute on chronic hypoxic respiratory failure secondary to acute community acquired pneumonia and acute exacerbation of COPD. COVID-19 PCR was negative, influenza A and B were negative #2. Severe tracheobronchomalacia with bronchiectasis with history of multiple bronchoscopies with BAL, last one was on 01/22/2021 with negative BAL cultures #3. Severe COPD with chronic hypoxic respiratory failure on home O2 at 2 L, with FEV1 of 1.18 L or 44% of predicted, stage III COPD, based on the PFT completed in January 2018 #4. Generalized anxiety #5. Hypertension #6. GERD/reflux #7. Benign prostatic hypertrophy #8. Former history of smoking #9. History of ESBL E. coli in the bronchial washings in March 2018 #10. Hearing disorder Plan: Continue current medical treatment Jocelyne sputum specimen Patient is requesting a bronchoscopy with BAL We'll continue medical treatment for now Procalcitonin level has been noted We may consider switching antibiotics to Zosyn or carbopenems if lack of improvement based on his previous bronchoscopy cultures We'll continue to follow his clinical course I performed a history & physical examination of the patient and discussed their management with my nurse practitioner, Rubi Ortega. I reviewed the nurse practitioner's note and agree with the documented findings and plan of care. Lung sounds are positive for diminished breath sounds throughout the lung robert. The findings and the impression was discussed with the patient. I attest to the documentation by the nurse practitioner. Time with Patient: Less than 30
[2021-02-25 11:47] LABS: Glucose,Whole Blood 116 mg/dL (75-99)
--- NOTE | 2021-02-25 15:45 | P.PN ---
Subjective Progress Note Date: 02/25/21 HISTORY OF PRESENT ILLNESS This is an 80-year-old male patient of Dr. Pal and Dr. Griggs with past medical history of COPD, severe tracheobronchial malacia, hypertension, gastroesophageal reflux disease, benign prostatic hypertrophy, generalized anxiety disorder, chronic hypoxic respiratory failure on home O2 at 2 L nasal cannula, remote history of tobacco use. Patient presented with shortness of breath and cough. His last bronchoscopy was one month ago. WBC 15.1. D-dimer 1.29. Creatinine 0.92. Blood sugar 127. Magnesium 2.0. Liver function tests negative. Troponin 0.032. proBNP 373. Rotavirus PCR not detected. Influenza A, influenza B not detected. Chest x-ray reveals no active cardiac pulmonary disease. Improvement in the patchy atelectasis compared to old exam. CT angiogram of the chest was negative for pulmonary embolism. Large pulmonary artery suggestive some pulmonary hypertension. Patchy atelectasis of the lower lung robert bilaterally. Repeat chest x-ray reveals findings stable. Patient is seen today in the emergency center waiting for a bed on the [facility] floor, patient started on DuoNeb treatments, antibiotics, Solu-Medrol, pulmonary consult. 02/25: Patient has requested to be made no code which will be done. Patient states that he is not feeling any better and he thinks that he needs a bronchoscopy. He does have pulmonary on consult which will be up to them to decide. OXYGEN 94% on 2 L. Blood pressure 163/77, afebrile, heart rate 86. Issues blood sugars have been running 120s to 150s but had one this morning at 428 and additional NovoLog [address] Linda has scheduled endoscopy for tomorrow. REVIEW OF SYSTEMS Constitutional: No fever, no chills, no night sweats. No weight change. No weakness, reports fatigue or lethargy. No daytime sleepiness. EENT: No headache. No blurred vision or double vision, no loss of vision. No loss of Hearing, no ringing in the ears, no dizziness. No nasal drainage or congestion. No epistaxis. No sore throat. Lungs: Reports shortness of breath, reports cough, reports sputum production. Reports wheezing. Cardiovascular: No chest pain, no lower extremity edema. No palpitations. No paroxysmal nocturnal dyspnea. No orthopnea. No lightheadedness or dizziness. No syncopal episodes. Abdominal: No abdominal pain. No nausea, vomiting. No diarrhea. No constipation. No bloody or tarry stools. No loss of appetite. Genitourinary: No dysuria, increased frequency, urgency. No urinary retention. Musculoskeletal: No myalgias. No muscle weakness, no gait dysfunction, no frequent falls. No back pain. No neck pain. Integumentary: No wounds, no lesions. No rash or pruritus. No unusual bruising. No change in hair or nails. Neurologic: No aphasia. No facial droop. No change in mentation. No head injury. No headache. No paralysis. No paresthesia. Psychiatric: No depression. No anxiety. No mood swings. Endocrine: No abnormal blood sugars. No weight change. No excessive sweating or thirst. No cold intolerance. PHYSICAL EXAMINATION Gen: This is an 80 year old male patient, resting in bed and appears to be in no acute distress. HEENT: Head is atraumatic, normocephalic. Pupils equal, round. Sclerae is anicteric. NECK: Supple. No JVD. No lymphadenopathy. No thyromegaly. LUNGS: Scattered rhonchi. No intercostal retractions. HEART: Regular rate and rhythm. No murmur. ABDOMEN: Soft. Bowel sounds are present. No masses. No tenderness. EXTREMITIES: No pedal edema. No calf tenderness. NEUROLOGICAL: Patient is awake, alert and oriented x3. Cranial nerves 2 through 12 are grossly intact. ASSESSMENT AND PLAN 1. Acute on chronic hypoxic respiratory failure secondary to am negative pneumonia. Patient has been started on DuoNeb treatments every 4 hours, azithromycin 500 mg daily, ceftriaxone 2 g daily, Tessalon Perles 200 mg 3 times daily, Perforomist daily, Solu-Medrol 60 mg IV every 6 hours. 2. Severe tracheobronchial malacia followed closely by Dr. Griggs with frequent bronchoscopies. Bronchoscopy scheduled tomorrow with Dr. Vail. 3. COPD with acute exacerbation. Continue Solu-Medrol 60 mg IV every 6 hours. Continue as in #1 4. Hypertension. Continue Norvasc 5 mg twice daily, Aldactone 25 mg daily 5. Generalized anxiety disorder. Continue Xanax or 0.5 mg at bedtime. 6. Benign prostatic hypertrophy. Continue tamsulosin 0.4 mg daily. 7. Gastroesophageal reflux disease. Protonix daily. 8. DVT prophylaxis. Heparin subcu. 9. COVID-19 testing negative. Patient has been hospitalized during a pandemic. DISCHARGE PLAN To be determined. Most likely return home. Impression and plan of care have been directed as dictated by the signing physician. Chrissy Orona nurse practitioner acting as scribe for signing physician. Objective - Vital Signs Vital signs: Vital Signs Temp 98 F 02/25/21 08:00 Pulse 94 02/25/21 08:41 Resp 16 02/25/21 08:00 BP 163/77 02/25/21 08:00 Pulse Ox 94 L 02/25/21 08:00 Intake & Output 02/24/21 02/25/21 02/25/21 18:59 06:59 18:59 Intake Total 600 Output Total 900 Balance -300 Weight 88.904 kg Intake: Intake, IV Titration 600 Amount cefTRIAXone 2 gm In 600 Sodium Chloride 0.9% 50 ml @ 100 mls/hr IVPB ONCE STA Rx#:[id number] Output: Urine 900 Other: Voiding Method Urinal Urinal Urinal Incontinent Incontinent Incontinent # Voids 2 1 2 # Bowel Movements 1 0 0 - Labs CBC & Chem 7: 02/23/21 19:13 02/23/21 19:13 Labs: Abnormal Lab Results - Last 24 Hours (Table) 02/24/21 02/24/21 02/24/21 Range/Units 12:20 17:06 17:12 POC Glucose (mg/dL) 168 H 125 H (75-99) mg/dL Procalcitonin 0.26 H (0.02-0.09) ng/mL 02/24/21 02/25/21 02/25/21 Range/Units 21:33 07:11 09:37 POC Glucose (mg/dL) 157 H 428 H 150 H (75-99) mg/dL Procalcitonin (0.02-0.09) ng/mL Microbiology - Last 24 Hours (Table) 02/23/21 23:15 Blood Culture - Preliminary Blood No Growth after 24 hours 02/23/21 23:00 Blood Culture - Preliminary Blood No Growth after 24 hours
[2021-02-25 16:32] LABS: Glucose,Whole Blood 150 mg/dL (75-99)
[2021-02-25] MEDS ORDERED: LIDOCAINE 1% (10MG/ML) FOR IV START INTRADERMA PRN (16:32)
[2021-02-25] MEDS: LACTATED RINGERS 1,000 ML IV SCH (19:22)
[2021-02-25 20:58] LABS: Glucose,Whole Blood 133 mg/dL (75-99)
[2021-02-25] MEDS: MELATONIN 5 MG TABLET PO SCH (21:58)
[2021-02-25] MEDS: CEFDINIR 300 MG CAP PO SCH (21:59)
[2021-02-26] MEDS: methylPREDNISolone SOD SUCCI 125 MG/2 ML VIAL IV SCH ×5 (01:09→22:35)
[2021-02-26] MEDS: IPRATROPIUM-ALBUTEROL 3 ML NEB INHALATION SCH ×5 (03:20→20:01)
[2021-02-26 07:14] LABS: Glucose,Whole Blood 120 mg/dL (75-99)
[2021-02-26] MEDS: INSULIN ASPART (NovoLOG) 100 UNIT/ML VIAL SQ SCH ×4 (07:26→20:46)
[2021-02-26] MEDS: BUDESONIDE 1 MG/2 ML NEBU INHALATION SCH ×2 (08:08→20:02)
[2021-02-26] MEDS: FORMOTEROL FUMARATE 20 MCG/2 ML NEBU INHALATION SCH (08:08)
[2021-02-26] MEDS: CEFDINIR 300 MG CAP PO SCH ×2 (08:32→20:46)
[2021-02-26] MEDS: amLODIPine 5 MG TAB PO SCH ×2 (08:33→20:46)
[2021-02-26] MEDS: BENZONATATE 100 MG CAP PO SCH ×3 (08:33→20:47)
[2021-02-26] MEDS: SPIRONOLACTONE 25 MG TAB PO SCH (08:33)
[2021-02-26] MEDS: TAMSULOSIN 0.4 MG CAP.ER.24H PO SCH (08:33)
[2021-02-26] MEDS: guaiFENesin 600 MG TABLET.ER PO SCH ×2 (08:33→20:47)
[2021-02-26 11:51] LABS: Glucose,Whole Blood 139 mg/dL (75-99)
--- NOTE | 2021-02-26 12:18 | P.PN ---
Subjective Progress Note Date: 02/26/21 Principal diagnosis: Shortness of breath, cough, congestion, pneumonia This is an 80-year-old gentleman with a history of hypertension, anxiety, gastroesophageal reflux disease, prostate disorder. He also has a history of severe tracheobronchomalacia and follows with Dr. Griggs in our office for the same. His last bronchoscopy with BAL was 01/22/2021. Surgical scar revealed no growth. He presented to the emergency room yesterday with complaints of increasing shortness of breath, cough and congestion. X-ray revealed evidence of COPD with patchy bilateral infiltrates. He is seen today in consultation in the emergency department. He is currently sitting up. Having lunch. Breathing a bit easier today compared to yesterday. CT angiogram ruled out pulmonary embolism. He was some evidence of pulmonary hypertension. There is patchy atelectasis in the mid and lower lung robert bilaterally. White count 15.1. Hemoglobin 15.2. D-dimer 1.29. Sodium 139. Potassium 4.8. Creatinine 0.92. Glucose 161. Troponin 0.032. ProBNP 373. Duarte virus not detected. Influenza screen negative. He's been initiated on DuoNeb inhalations, ceftriaxone and azithromycin, IV Solu-Medrol. On 02/25/2021 patient seen in follow-up on medical surgical floor. He is awake and alert, in no acute distress, he is currently on 2 L of oxygen pulse ox is 96%, he is a nonproductive cough, has had no fever or chills overnight, remains on Solu-Medrol 60 mg every 6 hours, and a combination of antibiotics of azithromycin and Rocephin, in addition to Pulmicort, Perforomist and DuoNeb. No hemoptysis, no complaints of chest pain. His pro calcitonin level came back at 0.26. He tested negative for influenza A and B and coronavirus. On 02/26/2021 patient seen in follow-up on medical surgical floor. His bronchoscopy has been rescheduled for tomorrow on 02/27/2021 related to sche duling issues, he remains congested, wheezy, he is upset about his bronchoscopy being rescheduled. He is on 6 L of oxygen his pulse ox is a 90-97%, he continues on IV Solu-Medrol 60 mg every 6 hours, he is on Perforomist and Pulmicort, DuoNeb, he is on Mucinex and Cefdinir. No fever or chills, no chest discomfort no hemoptysis, blood cultures have shown no growth thus far. Objective - Vital Signs Vital signs: Vital Signs Temp 98 F 02/26/21 08:00 Pulse 72 02/26/21 11:47 Resp 16 02/26/21 08:00 BP 139/80 02/26/21 08:00 Pulse Ox 93 L 02/26/21 08:00 Intake & Output 02/25/21 02/26/21 02/26/21 18:59 06:59 18:59 Intake Total 236 580 236 Balance 236 580 236 Intake: Oral 236 580 236 Other: Voiding Method Urinal Urinal Urinal Incontinent # Voids 1 1 1 # Bowel Movements 0 0 - Exam GENERAL EXAM: Alert, 80-year-old white male 6 L of oxygen and the pulse ox of 93% comfortable in no apparent distress. HEAD: Normocephalic/atraumatic. EYES: Normal reaction of pupils, equal size. Conjunctiva pink, sclera white. NOSE: Clear with pink turbinates. THROAT: No erythema or exudates. NECK: No masses, no JVD, no thyroid enlargement, no adenopathy. CHEST: No chest wall deformity. Symmetrical expansion. LUNGS: Equal air entry with a few scattered rhonchi, and diminished breath sounds bilaterally CVS: Regular rate and rhythm, normal S1 and S2, no gallops, no murmurs, no rubs ABDOMEN: Soft, nontender. No hepatosplenomegaly, normal bowel sounds, no guarding or rigidity. EXTREMITIES: No clubbing, no edema, no cyanosis, 2+ pulses and upper and lower extremities. MUSCULOSKELETAL: Muscle strength and tone normal. SPINE: No scoliosis or deformity SKIN: No rashes CENTRAL NERVOUS SYSTEM: Alert and oriented -3. No focal deficits, tone is normal in all 4 extremities. PSYCHIATRIC: Alert and oriented -3. Appropriate affect. Intact judgment and insight. - Labs CBC & Chem 7: 02/23/21 19:13 02/23/21 19:13 Labs: Abnormal Lab Results - Last 24 Hours (Table) 02/25/21 02/25/21 02/26/21 Range/Units 16:31 20:51 07:13 POC Glucose (mg/dL) 150 H 133 H 120 H (75-99) mg/dL 02/26/21 Range/Units 11:49 POC Glucose (mg/dL) 139 H (75-99) mg/dL Microbiology - Last 24 Hours (Table) 02/23/21 23:15 Blood Culture - Preliminary Blood No Growth after 48 hours 02/23/21 23:00 Blood Culture - Preliminary Blood No Growth after 48 hours Assessment and Plan Plan: Assessment: #1. Acute on chronic hypoxic respiratory failure secondary to acute community acquired pneumonia and acute exacerbation of COPD. COVID-19 PCR was negative, influenza A and B were negative #2. Severe tracheobronchomalacia with bronchiectasis with history of multiple bronchoscopies with BAL, last one was on 01/22/2021 with negative BAL cultures #3. Severe COPD with chronic hypoxic respiratory failure on home O2 at 2 L, with FEV1 of 1.18 L or 44% of predicted, stage III COPD, based on the PFT completed in January 2018 #4. Generalized anxiety #5. Hypertension #6. GERD/reflux #7. Benign prostatic hypertrophy #8. Former history of smoking #9. History of ESBL E. coli in the bronchial washings in March 2018 #10. Hearing disorder Plan: Continue current medical treatment Continue oral antibiotics, IV steroids and nebulized bronchodilators His bronchoscopy is rescheduled for tomorrow on 02/27/2021 Nothing by mouth after midnight I performed a history & physical examination of the patient and discussed their management with my nurse practitioner, Rubi Ortega. I reviewed the nurse practitioner's note and agree with the documented findings and plan of care. Lung sounds are positive for diminished breath sounds throughout the lung robert. The findings and the impression was discussed with the patient. I attest to the documentation by the nurse practitioner. Time with Patient: Less than 30
[2021-02-26 16:35] LABS: Glucose,Whole Blood 127 mg/dL (75-99)
[2021-02-26 20:18] LABS: Glucose,Whole Blood 158 mg/dL (75-99)
[2021-02-26] MEDS: LACTATED RINGERS 1,000 ML IV SCH (20:35)
[2021-02-26] MEDS: ALPRAZolam 0.25 MG TAB PO PRN (20:46)
[2021-02-26] MEDS: MELATONIN 5 MG TABLET PO SCH (20:46)
[2021-02-27] MEDS: IPRATROPIUM-ALBUTEROL 3 ML NEB INHALATION SCH ×7 (00:21→23:27)
[2021-02-27] MEDS: methylPREDNISolone SOD SUCCI 125 MG/2 ML VIAL IV SCH ×3 (06:03→18:22)
[2021-02-27 06:59] LABS: Glucose,Whole Blood 139 mg/dL (75-99)
[2021-02-27] MEDS: INSULIN ASPART (NovoLOG) 100 UNIT/ML VIAL SQ SCH ×4 (07:10→21:24)
[2021-02-27] MEDS: amLODIPine 5 MG TAB PO SCH ×2 (07:10→21:39)
[2021-02-27] MEDS: BUDESONIDE 1 MG/2 ML NEBU INHALATION SCH ×2 (07:16→19:38)
[2021-02-27] MEDS: FORMOTEROL FUMARATE 20 MCG/2 ML NEBU INHALATION SCH (07:16)
[2021-02-27] MEDS: BENZONATATE 100 MG CAP PO SCH ×3 (10:31→21:39)
[2021-02-27] MEDS: TAMSULOSIN 0.4 MG CAP.ER.24H PO SCH (10:32)
[2021-02-27] MEDS: CEFDINIR 300 MG CAP PO SCH ×2 (10:32→21:40)
[2021-02-27] MEDS: SPIRONOLACTONE 25 MG TAB PO SCH (10:32)
[2021-02-27] MEDS: guaiFENesin 600 MG TABLET.ER PO SCH ×2 (10:32→21:39)
--- NOTE | 2021-02-27 10:40 | P.PN ---
Subjective Progress Note Date: 02/27/21 Principal diagnosis: Shortness of breath, cough, congestion, pneumonia This is an 80-year-old gentleman with a history of hypertension, anxiety, gastroesophageal reflux disease, prostate disorder. He also has a history of severe tracheobronchomalacia and follows with Dr. Griggs in our office for the same. His last bronchoscopy with BAL was 01/22/2021. Surgical scar revealed no growth. He presented to the emergency room yesterday with complaints of increasing shortness of breath, cough and congestion. X-ray revealed evidence of COPD with patchy bilateral infiltrates. He is seen today in consultation in the emergency department. He is currently sitting up. Having lunch. Breathing a bit easier today compared to yesterday. CT angiogram ruled out pulmonary embolism. He was some evidence of pulmonary hypertension. There is patchy atelectasis in the mid and lower lung robert bilaterally. White count 15.1. Hemoglobin 15.2. D-dimer 1.29. Sodium 139. Potassium 4.8. Creatinine 0.92. Glucose 161. Troponin 0.032. ProBNP 373. Duarte virus not detected. Influenza screen negative. He's been initiated on DuoNeb inhalations, ceftriaxone and azithromycin, IV Solu-Medrol. On 02/25/2021 patient seen in follow-up on medical surgical floor. He is awake and alert, in no acute distress, he is currently on 2 L of oxygen pulse ox is 96%, he is a nonproductive cough, has had no fever or chills overnight, remains on Solu-Medrol 60 mg every 6 hours, and a combination of antibiotics of azithromycin and Rocephin, in addition to Pulmicort, Perforomist and DuoNeb. No hemoptysis, no complaints of chest pain. His pro calcitonin level came back at 0.26. He tested negative for influenza A and B and coronavirus. On 02/26/2021 patient seen in follow-up on medical surgical floor. His bronchoscopy has been rescheduled for tomorrow on 02/27/2021 related to sche duling issues, he remains congested, wheezy, he is upset about his bronchoscopy being rescheduled. He is on 6 L of oxygen his pulse ox is a 90-97%, he continues on IV Solu-Medrol 60 mg every 6 hours, he is on Perforomist and Pulmicort, DuoNeb, he is on Mucinex and Cefdinir. No fever or chills, no chest discomfort no hemoptysis, blood cultures have shown no growth thus far. On 02/27/2021 patient seen in follow-up on medical surgical floor. He states he is feeling little better however still has significant exertional dyspnea, and cannot bring up any phlegm. Continues on IV Solu-Medrol 60 mg every 6 hours, nebulized bronchodilators, and oral antibiotics, he scheduled for bronchoscopy with bronchoalveolar lavage. His vital signs have been stable overnight, he is on 2 L of oxygen pulse ox of 97% Objective - Vital Signs Vital signs: Vital Signs Temp 97.8 F 02/27/21 07:37 Pulse 94 02/27/21 07:47 Resp 20 02/27/21 07:37 BP 134/82 02/27/21 07:37 Pulse Ox 97 02/27/21 07:37 Intake & Output 02/26/21 02/27/21 02/27/21 18:59 06:59 18:59 Intake Total 708 Balance 708 Intake: Oral 708 Other: Voiding Method Urinal Urinal Toilet Urinal # Voids 1 2 2 # Bowel Movements 1 1 - Exam GENERAL EXAM: Alert, 80-year-old white male 2 L of oxygen and the pulse ox of 97% comfortable in no apparent distress. HEAD: Normocephalic/atraumatic. EYES: Normal reaction of pupils, equal size. Conjunctiva pink, sclera white. NOSE: Clear with pink turbinates. THROAT: No erythema or exudates. NECK: No masses, no JVD, no thyroid enlargement, no adenopathy. CHEST: No chest wall deformity. Symmetrical expansion. LUNGS: Equal air entry with a few scattered rhonchi, and diminished breath sounds bilaterally CVS: Regular rate and rhythm, normal S1 and S2, no gallops, no murmurs, no rubs ABDOMEN: Soft, nontender. No hepatosplenomegaly, normal bowel sounds, no guarding or rigidity. EXTREMITIES: No clubbing, no edema, no cyanosis, 2+ pulses and upper and lower extremities. MUSCULOSKELETAL: Muscle strength and tone normal. SPINE: No scoliosis or deformity SKIN: No rashes CENTRAL NERVOUS SYSTEM: Alert and oriented -3. No focal deficits, tone is normal in all 4 extremities. PSYCHIATRIC: Alert and oriented -3. Appropriate affect. Intact judgment and insight. - Labs CBC & Chem 7: 02/23/21 19:13 02/23/21 19:13 Labs: Abnormal Lab Results - Last 24 Hours (Table) 02/26/21 02/26/21 02/26/21 Range/Units 11:49 16:33 20:16 POC Glucose (mg/dL) 139 H 127 H 158 H (75-99) mg/dL 02/27/21 Range/Units 06:56 POC Glucose (mg/dL) 139 H (75-99) mg/dL Microbiology - Last 24 Hours (Table) 02/23/21 23:15 Blood Culture - Preliminary Blood No Growth after 72 hours 02/23/21 23:00 Blood Culture - Preliminary Blood No Growth after 72 hours Assessment and Plan Plan: Assessment: #1. Acute on chronic hypoxic respiratory failure secondary to acute community acquired pneumonia and acute exacerbation of COPD. COVID-19 PCR was negative, influenza A and B were negative #2. Severe tracheobronchomalacia with bronchiectasis with history of multiple bronchoscopies with BAL, last one was on 01/22/2021 with negative BAL cultures #3. Severe COPD with chronic hypoxic respiratory failure on home O2 at 2 L, with FEV1 of 1.18 L or 44% of predicted, stage III COPD, based on the PFT completed in January 2018 #4. Generalized anxiety #5. Hypertension #6. GERD/reflux #7. Benign prostatic hypertrophy #8. Former history of smoking #9. History of ESBL E. coli in the bronchial washings in March 2018 #10. Hearing disorder Plan: Continue current medical treatment Continue IV steroids nebulized bronchodilator, antibiotics Bronchoscopy with BAL today at 11:00 Clinically patient is improving and he states the bronchoscopy would speed up his recovery May consider for discharge home in the next 24 hours he remains stable after the procedure, and continues to improve I performed a history & physical examination of the patient and discussed their management with my nurse practitioner, Rubi Ortega. I reviewed the nurse practitioner's note and agree with the documented findings and plan of care. Lung sounds are positive for diminished breath sounds throughout the lung robert. The findings and the impression was discussed with the patient. I attest to the documentation by the nurse practitioner. Time with Patient: Less than 30
[2021-02-27 11:10] LABS: Glucose,Whole Blood 125 mg/dL (75-99)
[2021-02-27] MEDS ORDERED: LIDOCAINE 1% INJ 10MG/ML (20 ML MDV) ONE (11:23)
[2021-02-27] MEDS ORDERED: fentaNYL (PF) 50 MCG/ML 2 ML AMP ONE (11:23)
[2021-02-27] MEDS ORDERED: MIDAZOLAM 2 MG/2 ML VIAL ONE (11:23)
[2021-02-27] MEDS ORDERED: KETAMINE 10 MG/ML 20 ML VIAL ONE (11:23)
[2021-02-27] MEDS ORDERED: PROPOFOL 10 MG/ML 20 ML VIAL IV ONE (11:23)
[2021-02-27] MEDS ORDERED: SODIUM CHLORIDE 0.9% 1,000 ML IV ONE (11:37)
--- NOTE | 2021-02-27 12:43 | PCN ---
PROCEDURE NOTE OPERATIVE REPORT: Bronchoscopy and bronchoalveolar lavage. PREOPERATIVE DIAGNOSIS: Pneumonia and COPD exacerbation as well as difficulty clearing secretions. POSTOPERATIVE DIAGNOSIS: Pneumonia and COPD exacerbation as well as difficulty clearing secretions. ANESTHESIA USED: IV conscious sedation. PROCEDURE: The patient was placed in the supine position, O2 was applied via Ventimask. We monitored his O2 saturation continuously, blood pressure was intermittently monitored, and cardiac rhythm was continuously monitored. After adequate IV conscious sedation, the right naris was topically anesthetized with lidocaine. Then the bronchoscope was advanced through the right naris down to the area of the vocal cords. Thick secretions were noted around the vocal cords, there was evidence of thrush noted on the posterior aspect of the tongue. The bronchoscope was advanced further down, and I performed of the examination of his trachea, ross, right upper lobe, right middle lobe, right lower lobe, left upper lobe lingula and left lower lobe. There was evidence of thick purulent secretions everywhere in the airways, especially on the left side including the lingula and left lower lobe, there was also evidence of thick purulent secretions in the right lower lobe and right middle lobe. Bronchoalveolar lavage was done, random washing was done of all the secretions until completely clear, especially on the left side. Lavage of the lingula was done. The procedure was completed, there was also evidence of the trachea bronchomalacia noted. Fluid obtained was sent for different diagnostic studies, cultures are pending. Again, no complications during the procedure. MMODL / IJN: [id number] /
[2021-02-27] MEDS: NYSTATIN 100,000 UNIT/ML SUSP 500,000 UNIT/5 ML CUP PO SCH ×3 (13:27→21:40)
[2021-02-27] MEDS: FLUCONAZOLE 100 MG TAB PO SCH ×2 (13:33→21:39)
--- NOTE | 2021-02-27 13:59 | P.PN ---
Subjective Progress Note Date: 02/26/21 HISTORY OF PRESENT ILLNESS This is an 80-year-old male patient of Dr. Pal and Dr. Griggs with past medical history of COPD, severe tracheobronchial malacia, hypertension, gastroesophageal reflux disease, benign prostatic hypertrophy, generalized anxiety disorder, chronic hypoxic respiratory failure on home O2 at 2 L nasal cannula, remote history of tobacco use. Patient presented with shortness of breath and cough. His last bronchoscopy was one month ago. WBC 15.1. D-dimer 1.29. Creatinine 0.92. Blood sugar 127. Magnesium 2.0. Liver function tests negative. Troponin 0.032. proBNP 373. Rotavirus PCR not detected. Influenza A, influenza B not detected. Chest x-ray reveals no active cardiac pulmonary disease. Improvement in the patchy atelectasis compared to old exam. CT angiogram of the chest was negative for pulmonary embolism. Large pulmonary artery suggestive some pulmonary hypertension. Patchy atelectasis of the lower lung robert bilaterally. Repeat chest x-ray reveals findings stable. Patient is seen today in the emergency center waiting for a bed on the [facility] floor, patient started on DuoNeb treatments, antibiotics, Solu-Medrol, pulmonary consult. 02/25: Patient has requested to be made no code which will be done. Patient states that he is not feeling any better and he thinks that he needs a bronchoscopy. He does have pulmonary on consult which will be up to them to decide. OXYGEN 94% on 2 L. Blood pressure 163/77, afebrile, heart rate 86. Issues blood sugars have been running 120s to 150s but had one this morning at 428 and additional NovoLog [address] Linda has scheduled endoscopy for tomorrow. 02/26: Patient is scheduled for bronchoscopy but due to scheduling problems, this is delayed until tomorrow. Patient is upset and anxious to go home today. Patient is afebrile, heart rate 80, blood pressure 139/80, pulse ox 93% on 2 L nasal cannula. Capillary blood glucose running between 116 and 139. Patient is continued on Tessalon Perles, Omnicef, Perforomist, DuoNeb treatments every 4 hours, Solu-Medrol 60 mg IV every 6 hours. REVIEW OF SYSTEMS Constitutional: No fever, no chills, no night sweats. No weight change. No weakness, reports fatigue or lethargy. No daytime sleepiness. EENT: No headache. No blurred vision or double vision, no loss of vision. No loss of Hearing, no ringing in the ears, no dizziness. No nasal drainage or congestion. No epistaxis. No sore throat. Lungs: Reports shortness of breath, reports cough, reports sputum production. Reports wheezing. Reports shortness of breath with activity. Cardiovascular: No chest pain, no lower extremity edema. No palpitations. No paroxysmal nocturnal dyspnea. No orthopnea. No lightheadedness or dizziness. No syncopal episodes. Abdominal: No abdominal pain. No nausea, vomiting. No diarrhea. No constipation. No bloody or tarry stools. No loss of appetite. Genitourinary: No dysuria, increased frequency, urgency. No urinary retention. Musculoskeletal: No myalgias. No muscle weakness, no gait dysfunction, no frequent falls. No back pain. No neck pain. Integumentary: No wounds, no lesions. No rash or pruritus. No unusual bruising. No change in hair or nails. Neurologic: No aphasia. No facial droop. No change in mentation. No head injury. No headache. No paralysis. No paresthesia. Psychiatric: No depression. No anxiety. No mood swings. Endocrine: No abnormal blood sugars. No weight change. No excessive sweating or thirst. No cold intolerance. PHYSICAL EXAMINATION Gen: This is an 80 year old male patient, resting in bed and appears to be in no acute distress. HEENT: Head is atraumatic, normocephalic. Pupils equal, round. Sclerae is anicteric. NECK: Supple. No JVD. No lymphadenopathy. No thyromegaly. LUNGS: Scattered rhonchi. No intercostal retractions. HEART: Regular rate and rhythm. No murmur. ABDOMEN: Soft. Bowel sounds are present. No masses. No tenderness. EXTREMITIES: No pedal edema. No calf tenderness. NEUROLOGICAL: Patient is awake, alert and oriented x3. Cranial nerves 2 through 12 are grossly intact. ASSESSMENT AND PLAN 1. Acute on chronic hypoxic respiratory failure secondary to am negative pneumonia. Continue patient on Tessalon Perles, Omnicef, Perforomist, DuoNeb treatments every 4 hours, Solu-Medrol 60 mg IV every 6 hours. 2. Severe tracheobronchial malacia followed closely by Dr. Griggs with frequent bronchoscopies. Bronchoscopy REscheduled tomorrow with Dr. Linda. 3. COPD with acute exacerbation. Continue Solu-Medrol 60 mg IV every 6 hours. Continue as in #1 4. Hypertension. Continue Norvasc 5 mg twice daily, Aldactone 25 mg daily 5. Generalized anxiety disorder. Continue Xanax or 0.5 mg at bedtime. 6. Benign prostatic hypertrophy. Continue tamsulosin 0.4 mg daily. 7. Gastroesophageal reflux disease. Protonix daily. 8. DVT prophylaxis. Heparin subcu. 9. COVID-19 testing negative. Patient has been hospitalized during a pandemic. DISCHARGE PLAN Home with [facility] most likely after bronchoscopy on Tuesday. Impression and plan of care have been directed as dictated by the signing physician. Chrissy Orona nurse practitioner acting as scribe for signing physician. Objective - Vital Signs Vital signs: Vital Signs Temp 98 F 02/26/21 08:00 Pulse 88 02/26/21 08:33 Resp 16 02/26/21 08:00 BP 139/80 02/26/21 08:00 Pulse Ox 93 L 02/26/21 08:00 Intake & Output 02/25/21 02/26/21 02/26/21 18:59 06:59 18:59 Intake Total 236 580 236 Balance 236 580 236 Intake: Oral 236 580 236 Other: Voiding Method Urinal Urinal Incontinent # Voids 1 1 # Bowel Movements 0 0 - Labs CBC & Chem 7: 02/23/21 19:13 02/23/21 19:13 Labs: Abnormal Lab Results - Last 24 Hours (Table) 02/25/21 02/25/21 02/25/21 Range/Units 11:46 16:31 20:51 POC Glucose (mg/dL) 116 H 150 H 133 H (75-99) mg/dL 02/26/21 Range/Units 07:13 POC Glucose (mg/dL) 120 H (75-99) mg/dL Microbiology - Last 24 Hours (Table) 02/23/21 23:15 Blood Culture - Preliminary Blood No Growth after 48 hours 02/23/21 23:00 Blood Culture - Preliminary Blood No Growth after 48 hours
--- NOTE | 2021-02-27 14:02 | P.PN ---
Subjective Progress Note Date: 02/27/21 HISTORY OF PRESENT ILLNESS This is an 80-year-old male patient of Dr. Pal and Dr. Griggs with past medical history of COPD, severe tracheobronchial malacia, hypertension, gastroesophageal reflux disease, benign prostatic hypertrophy, generalized anxiety disorder, chronic hypoxic respiratory failure on home O2 at 2 L nasal cannula, remote history of tobacco use. Patient presented with shortness of breath and cough. His last bronchoscopy was one month ago. WBC 15.1. D-dimer 1.29. Creatinine 0.92. Blood sugar 127. Magnesium 2.0. Liver function tests negative. Troponin 0.032. proBNP 373. Rotavirus PCR not detected. Influenza A, influenza B not detected. Chest x-ray reveals no active cardiac pulmonary disease. Improvement in the patchy atelectasis compared to old exam. CT angiogram of the chest was negative for pulmonary embolism. Large pulmonary artery suggestive some pulmonary hypertension. Patchy atelectasis of the lower lung robert bilaterally. Repeat chest x-ray reveals findings stable. Patient is seen today in the emergency center waiting for a bed on the [facility] floor, patient started on DuoNeb treatments, antibiotics, Solu-Medrol, pulmonary consult. 02/25: Patient has requested to be made no code which will be done. Patient states that he is not feeling any better and he thinks that he needs a bronchoscopy. He does have pulmonary on consult which will be up to them to decide. OXYGEN 94% on 2 L. Blood pressure 163/77, afebrile, heart rate 86. Issues blood sugars have been running 120s to 150s but had one this morning at 428 and additional NovoLog [address] Linda has scheduled endoscopy for tomorrow. 02/26: Patient is scheduled for bronchoscopy but due to scheduling problems, this is delayed until tomorrow. Patient is upset and anxious to go home today. Patient is afebrile, heart rate 80, blood pressure 139/80, pulse ox 93% on 2 L nasal cannula. Capillary blood glucose running between 116 and 139. Patient is continued on Tessalon Perles, Omnicef, Perforomist, DuoNeb treatments every 4 hours, Solu-Medrol 60 mg IV every 6 hours. 02/27: Patient is seen this morning prior to bronchoscopy and noted to have significant wheezing. Patient given nebulizer treatment prior to procedure. Bronchoscopy performed by Dr. Linda which revealed pneumonia and COPD exacerbation and difficulty clearing secretions. Fluid was sent for testing. Patient is afebrile, heart rate 85, blood pressure 134/82, pulse ox 97% on [address] Linda has started the patient on Diflucan 100 mg twice daily and nystatin suspension 4 times daily. REVIEW OF SYSTEMS Constitutional: No fever, no chills, no night sweats. No weight change. No weakness, reports fatigue or lethargy. No daytime sleepiness. EENT: No headache. No blurred vision or double vision, no loss of vision. No loss of Hearing, no ringing in the ears, no dizziness. No nasal drainage or congestion. No epistaxis. No sore throat. Lungs: Reports shortness of breath, reports cough, reports sputum production. Reports wheezing. Reports shortness of breath with activity. Cardiovascular: No chest pain, no lower extremity edema. No palpitations. No paroxysmal nocturnal dyspnea. No orthopnea. No lightheadedness or dizziness. No syncopal episodes. Abdominal: No abdominal pain. No nausea, vomiting. No diarrhea. No constipation. No bloody or tarry stools. No loss of appetite. Genitourinary: No dysuria, increased frequency, urgency. No urinary retention. Musculoskeletal: No myalgias. No muscle weakness, no gait dysfunction, no frequent falls. No back pain. No neck pain. Integumentary: No wounds, no lesions. No rash or pruritus. No unusual bruising . No change in hair or nails. Neurologic: No aphasia. No facial droop. No change in mentation. No head injury. No headache. No paralysis. No paresthesia. Psychiatric: No depression. No anxiety. No mood swings. Endocrine: Mildly abnormal blood sugars. No weight change. PHYSICAL EXAMINATION Gen: This is an 80 year old male patient, resting in a recliner with moderate respiratory distress. Positive accessory muscle usage. HEENT: Head is atraumatic, normocephalic. Pupils equal, round. Sclerae is anicteric. NECK: Supple. No JVD. No lymphadenopathy. No thyromegaly. LUNGS: Scattered rhonchi. Expiratory wheezes bilaterally No intercostal retractions. HEART: Regular rate and rhythm. No murmur. ABDOMEN: Soft. Bowel sounds are present. No masses. No tenderness. EXTREMITIES: No pedal edema. No calf tenderness. NEUROLOGICAL: Patient is awake, alert and oriented x3. Cranial nerves 2 through 12 are grossly intact. ASSESSMENT AND PLAN 1. Acute on chronic hypoxic respiratory failure secondary to am negative pneumonia. Continue patient on Tessalon Perles, Omnicef, Perforomist, DuoNeb treatments every 4 hours, Solu-Medrol 60 mg IV every [address] Linda added Diflucan 100 mg twice daily and nystatin suspension 4 times daily. 2. Severe tracheobronchial malacia followed closely by Dr. Griggs with frequent bronchoscopies. Bronchoscopy REscheduled tomorrow with Dr. Linda. 3. COPD with acute exacerbation. Continue Solu-Medrol 60 mg IV every 6 hours. Continue as in #1 4. Hypertension. Continue Norvasc 5 mg twice daily, Aldactone 25 mg daily 5. Generalized anxiety disorder. Continue Xanax or 0.5 mg at bedtime. 6. Benign prostatic hypertrophy. Continue tamsulosin 0.4 mg daily. 7. Gastroesophageal reflux disease. Protonix daily. 8. DVT prophylaxis. Heparin subcu. 9. COVID-19 testing negative. Patient has been hospitalized during a pandemic. DISCHARGE PLAN Home with [facility] most likely after bronchoscopy on Tuesday. Impression and plan of care have been directed as dictated by the signing physician. Chrissy Orona nurse practitioner acting as scribe for signing physician. Objective - Vital Signs Vital signs: Vital Signs Temp 97.8 F 02/27/21 07:37 Pulse 94 02/27/21 07:47 Resp 20 02/27/21 07:37 BP 134/82 02/27/21 07:37 Pulse Ox 97 02/27/21 07:37 Intake & Output 02/26/21 02/27/21 02/27/21 18:59 06:59 18:59 Intake Total 708 Balance 708 Intake: Oral 708 Other: Voiding Method Urinal Urinal Toilet Urinal # Voids 1 2 2 # Bowel Movements 1 1 - Labs CBC & Chem 7: 02/23/21 19:13 02/23/21 19:13 Labs: Abnormal Lab Results - Last 24 Hours (Table) 02/26/21 02/26/21 02/26/21 Range/Units 11:49 16:33 20:16 POC Glucose (mg/dL) 139 H 127 H 158 H (75-99) mg/dL 02/27/21 02/27/21 Range/Units 06:56 10:58 POC Glucose (mg/dL) 139 H 125 H (75-99) mg/dL Microbiology - Last 24 Hours (Table) 02/23/21 23:15 Blood Culture - Preliminary Blood No Growth after 72 hours 02/23/21 23:00 Blood Culture - Preliminary Blood No Growth after 72 hours
[2021-02-27 16:33] LABS: Glucose,Whole Blood 186 mg/dL (75-99)
[2021-02-27 21:09] LABS: Glucose,Whole Blood 124 mg/dL (75-99)
[2021-02-27] MEDS: MELATONIN 5 MG TABLET PO SCH (21:39)
[2021-02-27] MEDS: LACTATED RINGERS 1,000 ML IV SCH (21:40)
[2021-02-27] MEDS: ALPRAZolam 0.25 MG TAB PO PRN (21:40)
[2021-02-28] MEDS: methylPREDNISolone SOD SUCCI 125 MG/2 ML VIAL IV SCH ×3 (00:53→11:46)
[2021-02-28] MEDS: IPRATROPIUM-ALBUTEROL 3 ML NEB INHALATION SCH ×4 (03:27→15:48)
[2021-02-28] MEDS: INSULIN ASPART (NovoLOG) 100 UNIT/ML VIAL SQ SCH ×3 (07:38→11:45)
[2021-02-28 07:42] LABS: Glucose,Whole Blood 175 mg/dL (75-99)
[2021-02-28] MEDS: FORMOTEROL FUMARATE 20 MCG/2 ML NEBU INHALATION SCH (07:43)
[2021-02-28] MEDS: BUDESONIDE 1 MG/2 ML NEBU INHALATION SCH (07:43)
[2021-02-28] MEDS: FLUCONAZOLE 100 MG TAB PO SCH (08:39)
[2021-02-28] MEDS: BENZONATATE 100 MG CAP PO SCH (08:39)
[2021-02-28] MEDS: guaiFENesin 600 MG TABLET.ER PO SCH (08:40)
[2021-02-28] MEDS: SPIRONOLACTONE 25 MG TAB PO SCH (08:40)
[2021-02-28] MEDS: CEFDINIR 300 MG CAP PO SCH (08:40)
[2021-02-28] MEDS: amLODIPine 5 MG TAB PO SCH (08:40)
[2021-02-28] MEDS: NYSTATIN 100,000 UNIT/ML SUSP 500,000 UNIT/5 ML CUP PO SCH ×2 (08:40→11:46)
[2021-02-28] MEDS: TAMSULOSIN 0.4 MG CAP.ER.24H PO SCH (08:40)
[2021-02-28] MEDS: ALPRAZolam 0.25 MG TAB PO PRN (08:46)
[2021-02-28 11:27] LABS: Glucose,Whole Blood 164 mg/dL (75-99)
[2021-02-28 11:29] LABS: HCT 40.2 % (39.6-50.0); HGB 12.9 g/dL (13.0-17.0); MCH 29.5 pg (27.0-32.0); MCHC 32.1 g/dL (32.0-37.0); MCV 91.8 fL (80.0-97.0); Mean Platelet Volume 11.2 fL (9.5-12.2); Platelet Count 240 X 10*3/uL (140-440); RBC 4.38 X 10*6/uL (4.40-5.60); RDW 15.7 % (11.5-14.5); WBC 11.94 X 10*3/uL (4.50-10.00)
[2021-02-28] MEDS: LACTATED RINGERS 1,000 ML IV SCH (11:44)
[2021-02-28 11:56] LABS: African American GFR (CKD) 81.4 (60.0-200.0); Anion Gap 12.4 mmol/L (4.00-12.00); BUN/Creat Ratio 37.5 Ratio (12.00-20.00); Blood Urea Nitrogen 37.5 mg/dL (9.0-27.0); Carbon Dioxide 19.6 mmol/L (21.6-31.8); Non-African American GFR(CKD) 70.3 (60.0-200.0); Potassium 4.3 mmol/L (3.5-5.5)
--- NOTE | 2021-02-28 12:02 | P.PN ---
Subjective Progress Note Date: 02/28/21 Principal diagnosis: Bilateral pneumonia This is an 80-year-old gentleman with a history of hypertension, anxiety, gastroesophageal reflux disease, prostate disorder. He also has a history of severe tracheobronchomalacia and follows with Dr. Griggs in our office for the same. His last bronchoscopy with BAL was 01/22/2021. Surgical scar revealed no growth. He presented to the emergency room yesterday with complaints of increasing shortness of breath, cough and congestion. X-ray revealed evidence of COPD with patchy bilateral infiltrates. He is seen today in consultation in the emergency department. He is currently sitting up. Having lunch. Breathing a bit easier today compared to yesterday. CT angiogram ruled out pulmonary embolism. He was some evidence of pulmonary hypertension. There is patchy atelectasis in the mid and lower lung robert bilaterally. White count 15.1. Hemoglobin 15.2. D-dimer 1.29. Sodium 139. Potassium 4.8. Creatinine 0.92. Glucose 161. Troponin 0.032. ProBNP 373. Duarte virus not detected. Influenza screen negative. He's been initiated on DuoNeb inhalations, ceftriaxone and azithromycin, IV Solu-Medrol. On 02/25/2021 patient seen in follow-up on medical surgical floor. He is awake and alert, in no acute distress, he is currently on 2 L of oxygen pulse ox is 96%, he is a nonproductive cough, has had no fever or chills overnight, remains on Solu-Medrol 60 mg every 6 hours, and a combination of antibiotics of azith romycin and Rocephin, in addition to Pulmicort, Perforomist and DuoNeb. No hemoptysis, no complaints of chest pain. His pro calcitonin level came back at 0.26. He tested negative for influenza A and B and coronavirus. On 02/26/2021 patient seen in follow-up on medical surgical floor. His bronch oscopy has been rescheduled for tomorrow on 02/27/2021 related to scheduling issues, he remains congested, wheezy, he is upset about his bronchoscopy being rescheduled. He is on 6 L of oxygen his pulse ox is a 90-97%, he continues on IV Solu-Medrol 60 mg every 6 hours, he is on Perforomist and Pulmicort, DuoNeb, he is on Mucinex and Cefdinir. No fever or chills, no chest discomfort no hemoptysis, blood cultures have shown no growth thus far. On 02/27/2021 patient seen in follow-up on medical surgical floor. He states he is feeling little better however still has significant exertional dyspnea, and cannot bring up any phlegm. Continues on IV Solu-Medrol 60 mg every 6 hours, nebulized bronchodilators, and oral antibiotics, he scheduled for bronchoscopy with bronchoalveolar lavage. His vital signs have been stable overnight, he is on 2 L of oxygen pulse ox of 97% The patient is seen today 02/28/2021 in follow-up on the regular medical floor. He is currently sitting up in a chair at the bedside. Awake and alert in no acute distress. Breathing quite a bit better today compared to yesterday. He did undergo bronchoscopy with BAL with many secretions removed. Cultures are pending. He is maintaining good O2 saturations in the mid 90s on 2 L/m per nasal cannula. Afebrile. Hemodynamically stable. I count 11.9. Hemoglobin 12.9. Sodium 139. Potassium 4.3. Creatinine 1.0. Glucose 175. He is continued on Pulmicort and Perforomist inhalations, DuoNeb inhalations, IV Solu- Medrol, Omnicef Objective - Vital Signs Vital signs: Vital Signs Temp 98.3 F 02/28/21 08:00 Pulse 96 02/28/21 08:12 Resp 22 02/28/21 08:45 BP 155/92 02/28/21 08:00 Pulse Ox 94 L 02/28/21 08:00 Intake & Output 02/27/21 02/28/21 02/28/21 18:59 06:59 18:59 Intake Total 420 Balance 420 Intake: IV 100 Oral 320 Other: Voiding Method Toilet Toilet Toilet Urinal Urinal Urinal # Voids 3 3 # Bowel Movements 1 - Exam GENERAL EXAM: Alert, active, pleasant 80-year-old gentleman, on 2 L nasal cannula, comfortable in no apparent distress. HEAD: Normocephalic. EYES: Normal reaction of pupils, equal size. NOSE: Clear with pink turbinates. THROAT: No erythema or exudates. NECK: No masses, no JVD. CHEST: No chest wall deformity. LUNGS: Equal air entry with few scattered rhonchi. CVS: S1 and S2 normal with no audible murmur, regular rhythm. ABDOMEN: No hepatosplenomegaly, normal bowel sounds, no guarding or rigidity. SPINE: No scoliosis or deformity SKIN: No rashes CENTRAL NERVOUS SYSTEM: No focal deficits, tone is normal in all 4 extremities. EXTREMITIES: There is no peripheral edema. No clubbing, no cyanosis. Peripher al pulses are intact. - Labs CBC & Chem 7: 02/28/21 07:38 02/23/21 19:13 Labs: Abnormal Lab Results - Last 24 Hours (Table) 02/27/21 02/27/21 02/28/21 Range/Units 16:30 21:08 07:38 WBC 11.94 H (4.50-10.00) X 10*3/uL RBC 4.38 L (4.40-5.60) X 10*6/uL Hgb 12.9 L (13.0-17.0) g/dL RDW 15.7 H (11.5-14.5) % POC Glucose (mg/dL) 186 H 124 H (75-99) mg/dL 02/28/21 02/28/21 Range/Units 07:41 11:26 WBC (4.50-10.00) X 10*3/uL RBC (4.40-5.60) X 10*6/uL Hgb (13.0-17.0) g/dL RDW (11.5-14.5) % POC Glucose (mg/dL) 175 H 164 H (75-99) mg/dL Microbiology - Last 24 Hours (Table) 02/23/21 23:15 Blood Culture - Preliminary Blood No Growth after 96 hours 02/23/21 23:00 Blood Culture - Preliminary Blood No Growth after 96 hours Assessment and Plan Assessment: 1 Acute hypoxemic respiratory failure secondary to suspected acute community- acquired pneumonia status post bronchoscopy and BAL on 02/27/2021 2 Severe tracheobronchomalacia, most recent bronchoscopy with BAL 01/22/2021, cultures reveal no growth 3 Chronic obstructive pulmonary disease 4 Hypertension 5 History of previous ESBL 6 BPH 7 Hearing disorder 8 Former smoker Plan: The patient was seen and evaluated by Dr. Linda Cleared for discharge from the pulmonary standpoint Complete a course of antibiotics Complete a prednisone taper Continue his home pulmonary medications Follow up with Dr. Griggs in 1-2 weeks' I, the cosigning physician, performed a history & physical examination of the patient. Lungs sounds bilateral scattered rhonchi. Maintaining good O2 saturations in the 90s on 2 L/m per nasal cannula. I discussed the assessment and plan of care with my nurse practitioner, Sangeeta Thornton. I attest to the above note as dictated by her.
[2021-02-28 14:43] VITALS: BP 155/82; RESP 20; TEMP 97.6
[2021-02-28 16:02] VITALS: PULSE 84
--- NOTE | 2021-02-28 21:13 | P.DS ---
Providers Date of admission: 02/23/21 22:57 Attending physician: Erik Pal Consults: 02/24/21 09:30 Consult Physician Routine Consulting Provider: Ashanti Linda Consult Reason/Comments: COPD exac Do you want consulting provider notified?: Yes Primary care physician: Erik Pal [facility] Course: HISTORY OF PRESENT ILLNESS This is an 80-year-old male patient of Dr. Pal and Dr. Griggs with past medical history of COPD, severe tracheobronchial malacia, hypertension, gastroesophageal reflux disease, benign prostatic hypertrophy, generalized anxiety disorder, chronic hypoxic respiratory failure on home O2 at 2 L nasal cannula, remote history of tobacco use. Patient presented with shortness of breath and cough. His last bronchoscopy was one month ago. WBC 15.1. D-dimer 1.29. Creatinine 0.92. Blood sugar 127. Magnesium 2.0. Liver function tests negative. Troponin 0.032. proBNP 373. Rotavirus PCR not detected. Influenza A, influenza B not detected. Chest x-ray reveals no active cardiac pulmonary disease. Improvement in the patchy atelectasis compared to old exam. CT angiogram of the chest was negative for pulmonary embolism. Large pulmonary artery suggestive some pulmonary hypertension. Patchy atelectasis of the lower lung robert bilaterally. Repeat chest x-ray reveals findings stable. Patient is seen today in the emergency center waiting for a bed on the [facility] floor, patient started on DuoNeb treatments, antibiotics, Solu-Medrol, pulmonary consult. 02/25: Patient has requested to be made no code which will be done. Patient states that he is not feeling any better and he thinks that he needs a bronchoscopy. He does have pulmonary on consult which will be up to them to decide. OXYGEN 94% on 2 L. Blood pressure 163/77, afebrile, heart rate 86. Issues blood sugars have been running 120s to 150s but had one this morning at 428 and additional NovoLog [address] Linda has scheduled endoscopy for tomorrow. 02/26: Patient is scheduled for bronchoscopy but due to scheduling problems, this is delayed until tomorrow. Patient is upset and anxious to go home today. Patient is afebrile, heart rate 80, blood pressure 139/80, pulse ox 93% on 2 L nasal cannula. Capillary blood glucose running between 116 and 139. Patient is continued on Tessalon Perles, Omnicef, Perforomist, DuoNeb treatments every 4 hours, Solu-Medrol 60 mg IV every 6 hours. 02/27: Patient is seen this morning prior to bronchoscopy and noted to have significant wheezing. Patient given nebulizer treatment prior to procedure. Bronchoscopy performed by Dr. Linda which revealed pneumonia and COPD exacerbation and difficulty clearing secretions. Fluid was sent for testing. Patient is afebrile, heart rate 85, blood pressure 134/82, pulse ox 97% on [address] Linda has started the patient on Diflucan 100 mg twice daily and nystatin suspension 4 times daily. , patient had bronchoscopy today, with copious amount of mucus with bronchial alveolar lavage, the copious amount was cleared, and was sent for diagnostic studies, patient did not have any complications during the procedure, and was cleared by pulmonary for discharge today, with oral prednisone, taper and and oral antibiotics patient also was diagnosed to have bronchomalacia, patient was requesting discharge today, as he has been cleared by pulmonary. Vital signs stable, no rest or distress on discharge, patient requires night O2 on a chronic basis, 2 L, sats currently at 97% REVIEW OF SYSTEMS Constitutional: No fever, no chills, no night sweats. No weight change. No weakness, reports fatigue or lethargy. No daytime sleepiness. EENT: No headache. No blurred vision or double vision, no loss of vision. No loss of Hearing, no ringing in the ears, no dizziness. No nasal drainage or congestion. No epistaxis. No sore throat. Lungs: Reports shortness of breath, reports cough, reports sputum production. Reports wheezing. Reports shortness of breath with activity. Cardiovascular: No chest pain, no lower extremity edema. No palpitations. No paroxysmal nocturnal dyspnea. No orthopnea. No lightheadedness or dizziness. No syncopal episodes. Abdominal: No abdominal pain. No nausea, vomiting. No diarrhea. No constipation. No bloody or tarry stools. No loss of appetite. Genitourinary: No dysuria, increased frequency, urgency. No urinary retention. Musculoskeletal: No myalgias. No muscle weakness, no gait dysfunction, no frequent falls. No back pain. No neck pain. Integumentary: No wounds, no lesions. No rash or pruritus. No unusual bruising. No change in hair or nails. Neurologic: No aphasia. No facial droop. No change in mentation. No head injury. No headache. No paralysis. No paresthesia. Psychiatric: No depression. No anxiety. No mood swings. Endocrine: Mildly abnormal blood sugars. No weight change. FINAL DIAGNOSES 1. Acute on chronic hypoxic respiratory failure secondary to am negative pneumonia. Continue patient on Tessalon Perles, Omnicef, Perforomist, DuoNeb treatments every 4 hours, Solu-Medrol 60 mg IV every [address] Linda added Diflucan 100 mg twice daily and nystatin suspension 4 times daily. 2. Severe tracheobronchial malacia followed closely by Dr. Griggs with frequent bronchoscopies. Bronchoscopy REscheduled tomorrow with Dr. Linda. 3. COPD with acute exacerbation. Continue Solu-Medrol 60 mg IV every 6 hours. Continue as in #1 4. Hypertension. Continue Norvasc 5 mg twice daily, Aldactone 25 mg daily 5. Generalized anxiety disorder. Continue Xanax or 0.5 mg at bedtime. 6. Benign prostatic hypertrophy. Continue tamsulosin 0.4 mg daily. 7. Gastroesophageal reflux disease. Protonix daily. 8. DVT prophylaxis. Heparin subcu. 9. COVID-19 testing negative. Patient has been hospitalized during a pandemic. DISCHARGE PLAN Home with [facility] most likely after bronchoscopy on Tuesday. Stable on discharge Discharge Medication List ALPRAZolam [Xanax] 0.25 mg PO QID 08/22/13 [History] amLODIPine [Norvasc] 5 mg PO BID 08/22/13 [History] Benzonatate [Tessalon Perles] 200 mg PO TID 09/02/16 [History] Formoterol Fumarate [Perforomist] 20 mcg INHALATION RT-BID 09/02/16 [History] guaiFENesin [Mucinex] 600 mg PO BID 08/16/17 [History] Spironolactone [Aldactone] 25 mg PO DAILY 09/06/18 [History] Tamsulosin [Flomax] 0.4 mg PO DAILY 09/06/18 [History] Melatonin 10 mg PO HS 09/24/19 [History] Naproxen Sodium [Aleve] 220 mg PO BID PRN 09/24/19 [History] Ipratropium-Albuterol Nebulize [Duoneb 0.5 mg-3 mg/3 ml Soln] 3 ml INHALATION RT-QID 05/09/20 [History] Ipratropium/Albuterol Sulfate [Combivent Respimat Inhaler] 1 puff INHALATION RT- QID PRN 05/15/20 [History] Azithromycin 250 mg PO MOWEFR 02/23/21 [History] Budesonide [Pulmicort] 1 mg INHALATION RT-BID #60 ml 02/28/21 [Rx] Cefdinir [Omnicef] 300 mg PO Q12HR 6 Days #12 capsule 02/28/21 [Rx] Famotidine [Pepcid] 20 mg PO DAILY PRN #60 tab 02/28/21 [Rx] Fluconazole [Diflucan] 100 mg PO BID #20 tab 02/28/21 [Rx] predniSONE 5 mg PO Q48H #0 02/28/21 [Rx] predniSONE [Deltasone] 50 mg PO DAILY #23 tab 02/28/21 [Rx] Patient Condition at Discharge: Fair Plan - Discharge Summary Discharge Rx Participant: No New Discharge Prescriptions: New predniSONE [Deltasone] 50 mg PO DAILY #23 tab Fluconazole [Diflucan] 100 mg PO BID #20 tab Cefdinir [Omnicef] 300 mg PO Q12HR 6 Days #12 capsule Famotidine [Pepcid] 20 mg PO DAILY PRN #60 tab PRN Reason: Heartburn Budesonide [Pulmicort] 1 mg INHALATION RT-BID #60 ml Continue amLODIPine [Norvasc] 5 mg PO BID ALPRAZolam [Xanax] 0.25 mg PO QID Benzonatate [Tessalon Perles] 200 mg PO TID Formoterol Fumarate [Perforomist] 20 mcg INHALATION RT-BID guaiFENesin [Mucinex] 600 mg PO BID Tamsulosin [Flomax] 0.4 mg PO DAILY Spironolactone [Aldactone] 25 mg PO DAILY Naproxen Sodium [Aleve] 220 mg PO BID PRN PRN Reason: Pain Melatonin 10 mg PO HS Ipratropium-Albuterol Nebulize [Duoneb 0.5 mg-3 mg/3 ml Soln] 3 ml INHALATION RT-QID Ipratropium/Albuterol Sulfate [Combivent Respimat Inhaler] 1 puff INHALATION RT-QID PRN PRN Reason: Dyspnea Azithromycin 250 mg PO MOWEFR predniSONE 5 mg PO Q48H #0 Discontinued Budesonide [Pulmicort] 0.5 mg INHALATION RT-QID Discharge Medication List ALPRAZolam [Xanax] 0.25 mg PO QID 08/22/13 [History] amLODIPine [Norvasc] 5 mg PO BID 08/22/13 [History] Benzonatate [Tessalon Perles] 200 mg PO TID 09/02/16 [History] Formoterol Fumarate [Perforomist] 20 mcg INHALATION RT-BID 09/02/16 [History] guaiFENesin [Mucinex] 600 mg PO BID 08/16/17 [History] Spironolactone [Aldactone] 25 mg PO DAILY 09/06/18 [History] Tamsulosin [Flomax] 0.4 mg PO DAILY 09/06/18 [History] Melatonin 10 mg PO HS 09/24/19 [History] Naproxen Sodium [Aleve] 220 mg PO BID PRN 09/24/19 [History] Ipratropium-Albuterol Nebulize [Duoneb 0.5 mg-3 mg/3 ml Soln] 3 ml INHALATION RT-QID 05/09/20 [History] Ipratropium/Albuterol Sulfate [Combivent Respimat Inhaler] 1 puff INHALATION RT- QID PRN 05/15/20 [History] Azithromycin 250 mg PO MOWEFR 02/23/21 [History] Budesonide [Pulmicort] 1 mg INHALATION RT-BID #60 ml 02/28/21 [Rx] Cefdinir [Omnicef] 300 mg PO Q12HR 6 Days #12 capsule 02/28/21 [Rx] Famotidine [Pepcid] 20 mg PO DAILY PRN #60 tab 02/28/21 [Rx] Fluconazole [Diflucan] 100 mg PO BID #20 tab 02/28/21 [Rx] predniSONE 5 mg PO Q48H #0 02/28/21 [Rx] predniSONE [Deltasone] 50 mg PO DAILY #23 tab 02/28/21 [Rx] Follow up Appointment(s)/Referral(s): [facility], [NON-STAFF] - As Needed Erik Pal MD [Primary Care Provider] - 1-2 days Dandy Griggs DO [Doctor of Osteopathic Medicine] - 1 Week Patient Instructions/Handouts: COPD (Chronic Obstructive Pulmonary Disease) (DC) Discharge Disposition: HOME WITH HOME HEALTH SERVICES
[2021-03-02 20:42] LABS: Appearance,BF Cloudy; Nucleated Cells, Body Fluid 3300 /uL; RBC, Body Fluid 4550 /uL
[2021-03-02 20:49] LABS: Mononuclear WBC,Body Fluid 19 %; Polynuclear WBC,Body Fluid 81 %; Total Cells Counted,Body Fluid 100
== END 2021-02-28 16:24 | disposition home health service (06) | DRG 177 ==
LOC: EC 18:11 → 4SSUR 22:57
PROVIDERS: ADMIT Internal Medicine Geriatric Medicine; ATTEND Internal Medicine Geriatric Medicine
PROC: 0B9M8ZX Drainage of Bilateral Lungs, Via Natural or Artificial Opening Endoscopic, Diagnostic (ICD-10-PCS; 2021-02-27)
PROC: 0B9H8ZX Drainage of Lung Lingula, Via Natural or Artificial Opening Endoscopic, Diagnostic (ICD-10-PCS; principal; 2021-02-27 11:00)
DX: J15.6 Pneumonia due to other Gram-negative bacteria (principal); J96.21 Acute and chronic respiratory failure with hypoxia; J44.0 Chronic obstructive pulmonary disease with (acute) lower respiratory infection; J44.1 Chronic obstructive pulmonary disease with (acute) exacerbation; J98.11 Atelectasis; B37.0 Candidal stomatitis; J39.8 Other specified diseases of upper respiratory tract; F41.1 Generalized anxiety disorder; H91.90 Unspecified hearing loss, unspecified ear; I10 Essential (primary) hypertension; J98.09 Other diseases of bronchus, not elsewhere classified; K21.9 Gastro-esophageal reflux disease without esophagitis; N40.0 Benign prostatic hyperplasia without lower urinary tract symptoms; Z20.822 Contact with and (suspected) exposure to COVID-19; Z79.899 Other long term (current) drug therapy; Z82.3 Family history of stroke; Z82.49 Family history of ischemic heart disease and other diseases of the circulatory system; Z86.19 Personal history of other infectious and parasitic diseases; Z87.891 Personal history of nicotine dependence; I27.20 Pulmonary hypertension, unspecified
CPT/HCPCS: 31624; 36415; 71046; 71275; 80048; 80053; 83605; 83735; 83880; 84145; 84484; 85025; 85027; 85379; 85610; 85730; 87040; 87070; 87102; 87116; 87205; 87206; 87502; 87635; 89050; 93005; 94640; 94760; 96365; 96368; 96375; 99291